=== PATIENT | female | born 1945 | race Caucasian/White ===

== ENCOUNTER 2017-08-01 08:44 | Outpatient (RCR) | payer MEDICARE, BC ==
[2016-06-29 12:32] VITALS: Ht 175.3 cm; Wt 99.4 kg
[2017-05-30] MEDS: LIDOCAINE/SOD BICARB 8.4% SYR ID PRN (09:00)
[2017-05-30 09:08] VITALS: BP 124/74
[2017-05-30 09:28] LABS: PLATELET COUNT, AUTOMATED 192 K/uL (150-450)
--- NOTE | 2017-05-30 10:11 | ONC Progress Note - NP.Halsey ---
Patient History Date of Service May 30, 2017 Reason For Visit/HPI Patient is seen in the clinic today for cycle 11 of Keytruda for her recurrent metastatic colon cancer. Patient continues to deny any symptoms from Keytruda other than mild itching over her scalp. She has been using Benadryl with some relief and denies any sleepiness or fatigue with its use. I have suggested trying Claritin if she has lethargy. She has stable fatigue and constipation without changes. 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 Labs are reviewed with patient today and there are no concerns. Problem List (1) History of colon cancer Oncology History The patient is a 71-year-old female with the following oncology history. 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 Biopsy of the right tube and ovary consistent with spindle stroma. 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 Her colonoscopy on December 2014 was unremarkable. On June 07, 2015, PET-CT scan showed postoperative changes of right hemicolectomy was 2.2 cm hypermetabolic left external iliac lymph node with non-FDG avid 1.8 cm low density lesion in the dome of the liver which was not previously seen with suspected cyst. There was an 8 mm mesenteric lymph node near the aortic bifurcation not significantly changed from prior exam. On June 01, 2015 left iliac lymph node core biopsy was benign lymph node with reactive changes, negative for malignancy. On August 11, 2015, CT scan showed enlarging 2.1 cm low density liver lesion with slight lobulated/irregular margins suggestive of cyst, but necrotic metastasis cannot be excluded. 8 mm right lobe liver lesion stable consistent with cyst. Stable left external iliac lymph node. 3.6 cm right adrenal adenoma. On November 03, 2015 CT showed 2 cm hypodense liver lesion with indistinct margins in the right lobe at the dome, essentially unchanged. On January 28, 2015, PET-CT scan showed previous right hemicolectomy, increase in the size of the lesion near the dome of the right hepatic lobe, now measuring 3.3 x 2.5 cm with borderline increased metabolic activity, consistent with metastasis. There was hypermetabolic left external iliac and mesenteric lymphadenopathy which was slightly more metabolically reactive than prior with stable 3.5 x 3.1 cm right adrenal gland mass with increased metabolic activity. The patient also during this period of time showed rising of her CEA. CT of chest, abdomen and pelvis done on May 06, 2016 identified changes of the previous right colectomy; pelvic lymph nodes are impaired when compared to January. Hypo-enhancing lesion in the dome of the liver is mildly increased. Right adrenal nodule is stable, likely benign. CT-guided biopsy of the liver lesion led to the right hepatectomy done on June 07, 2016. Biopsy of the left lateral section cyst showed mild steatotic liver with denuded cyst, consistent with solitary bile duct cyst. Right hepatectomy came back positive for mucinous adenocarcinoma, 3.3 cm tumor, morphologically consistent with metastatic high-grade colon cancer in the liver. Margins were negative with background steatosis. KRAS and NRAS mutations came back negative, but BRAF mutation came back positive. Microsatellite instability testing came back high, so the patient could get benefit from checkpoint inhibitors. The patient started treatment with Keytruda given that her microsatellite instability was high on September 20, 2016. Medical History Family History: FH: Alzheimers disease MOTHER, , Age:93 FH: CHF (congestive heart failure) FATHER, , Age:79 FH: Parkinson's disease FATHER, , Age:79 FH: bipolar disorder CHILD FH: colon cancer FATHER, , Age:79 grandfather - maternal FH: hypertension FATHER, , Age:79 FH: prostate cancer FATHER, , Age:79 Mental disorder CHILD No significant family history CHILD TIAs FATHER, , Age:79 Psychosocial History Social History Patient is Occupational History She is retired Alcohol History She denies use Smoking History: Yes (SMOKED 40 YRS 1 PPD) Smoking Status: Former Smoker Exposure to Second Hand Smoke?: Yes Medications and Allergies Active Scripts Ondansetron (ZOFRAN ODT) 8 Mg Tab.rapdis, 8 MG PO Q8H, #30 TAB Prov:MOHAMUD DEWITT [employer], ONC 05/09/17 Lorazepam (ATIVAN) 1 Mg Tablet, 1 MG PO HS for NAUSEA, #30 TAB 2 Refills Prov:MOHAMUD DEWITT [employer], ONC 03/24/17 Rivaroxaban 20 Mg (XARELTO 20 MG) 20 Mg Tablet, 20 MG PO DAILY for 30 Days, #30 TAB 6 Refills Prov:MOHAMUD DEWITT [employer], ONC 12/13/16 Reported Medications Fluoxetine Hcl (PROZAC) 40 Mg Capsule, 50 MG PO QDAY, #90 CAPSULE 3 Refills 01/03/17 Furosemide (FUROSEMIDE) 20 Mg Tablet, 1 TAB PO BID, #90 06/29/16 Allergies: Coded Allergies: Penicillins (Verified Allergy, Severe, RASH, 06/29/16) Uncoded Allergies: BANDAIDS (Allergy, Unknown, 06/29/16) Review of System/Physical Exam Review of Systems All Systems Reviewed/Normal: Yes, Except as Noted Gastrointestinal: Constipation Hematologic: Positive for Fatigue Neurologic: Numbness of Hands, Numbness of Feet Skin: Positive for Other (itching of the scalp), Denies Skin Rash Physical Exam Vital Signs Temperature: 99.2 Pulse: 75 BP Systolic: 124 BP Diastolic: 74 Respiratory Rate: 16 O2 SAT: 94 O2 Delivery: Room Air Height (inches) 69.00 Weight lb: 204 Weight oz: 6.0 Weight Kg ([place]): [phone] Pain: 2 ECOG Score: 1 General: Stable, Well Developed, Well Nourished, Not In Acute Distress HEENT: No Trauma, No Conjunctivitis, No Icterus Neck: Supple Lungs: Clear to Auscultation Heart: Regular Rate, Regular Rhythm, No Gallops Abdomen: Soft and Nontender, No Hepatosplenomegaly Extremities: No Cyanosis, No Clubbing, No Edema Lymphadenopathy: No Cervical Psychiatric: Mood appears normal, Affect appears normal Skin: No Skin Rashes, No Bruising, No Purpura Diagnostic Studies Diagnostic Studies Laboratory Laboratory Tests 05/30/17 06:20 Laboratory Tests 05/30/17 06:20: White Blood Count 7.0, Red Blood Count 5.03, Hemoglobin 14.2, Hematocrit 43.2, Mean Corpuscular Volume 85.9, Mean Corpuscular Hemoglobin 28.2, Mean Corpuscular Hemoglobin Concent 32.8, Red Cell Distribution Width 16.5, Platelet Count 192, Mean Platelet Volume 7.1, Neutrophils (%) (Auto) 56.9, Lymphocytes (% ) (Auto) 32.1, Monocytes (%) (Auto) 8.2, Eosinophils (%) (Auto) 2.1, Basophils ( %) (Auto) 0.7, Nucleated RBC Relative Count (auto) 0.1, Neutrophils # (Auto) 4.0 , Lymphocytes # (Auto) 2.3, Monocytes # (Auto) 0.6, Eosinophils # (Auto) 0.1, Basophils # (Auto) 0.0, Nucleated RBC Absolute Count (auto) 0.01, Sodium Level 141, Potassium Level 4.2, Chloride Level 107, Carbon Dioxide Level 23, Blood Urea Nitrogen 13, Creatinine 0.90, Glomerular Filtration Rate Calc > 60.0, Random Glucose 82, Calcium Level 8.9, Magnesium Level 2.0, Total Bilirubin 0.7, Aspartate Amino Transf (AST/SGOT) 16, Alanine Aminotransferase (ALT/SGPT) 25, Alkaline Phosphatase 120, Total Protein 7.2, Albumin 3.7 Assessment and Plan Assessment & Plan 1. Recurrent metastatic colon cancer. Patient initially diagnosed with stage 3 for which she received 11 cycles of chemotherapy with FOLFOX, and on progression she received FOLFIRI for 4 cycles. The first 2 cycles were full dose, but the last 2 cycles were 25% dose reduced because of severe reaction. Patient had hepatectomy for metastatic lesion in the liver done June 07, 2016. Tumor was 3.3 cm mucinous adenocarcinoma. KRAS and NRAS mutations came back negative, but BRAF mutation came back positive. Her tumor was microsatellite instability high. Given this information, with tumor in the proximal colon, mucinous histology, DNA mismatch repair deficiency and microsatellite instability high, patient has started treated with Keytruda on September 20, 2016. She is tolerating treatment without difficulty and will continue until significant disease progression. Her general condition improved. Her PET scan done November 19, 2016 did reveal response to the treatment, as well as her CT chest done November 29, 2016. She will follow in 3 weeks from now with CBC, Chem panel, TSH and free T4 and CEA prior to the next cycle of chemotherapy with Keytruda. 2. Right adrenal mass, stable by PET scan done November 19, 2016. Size was 3.[address] chest done November 29, 2016. CEA is currently at 5.2 which is decreased from previous 6.2. CEA is currently pending today. 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 4. Arthritis. 5. Hepatic metastasis from colon cancer status post resection, currently on Keytruda with improvement by her PET scan November 19, 2016. She will receive cycle 11 today PLAN 1. Keytruda cycle #11. 2. Patient to return in 3 weeks with CBC, Chem panel, free T4, TSH and CEA. 3. Patient to contact us for any new concerns or complaints. I personally spent a total of 20 minutes. Of that 15 minutes was counseling/ coordination of patient's care. See my note above for details. MOHAMUD DEWITT [employer]GER[employer]BC, ONC May 30, 2017 10:11
[2017-05-30] MEDS: HEPARIN FLSH (PORT) 500 UN/5ML IVP PRN (11:00)
[2017-05-30 11:01] VITALS: BP 136/72
[2017-06-20 09:01] VITALS: BP 134/91
[2017-06-20] MEDS: LIDOCAINE/SOD BICARB 8.4% SYR ID PRN (09:21)
[2017-06-20] MEDS: HEPARIN FLSH (PORT) 500 UN/5ML IVP PRN (09:21)
[2017-06-20 09:24] LABS: PLATELET COUNT, AUTOMATED 201 K/uL (150-450)
--- NOTE | 2017-06-24 13:29 | ONCOLOGY FOLLOW UP NOTE ---
EVENT DATE: June 20 DIAGNOSES 1. Metastatic colon cancer. 2. Guillain-[place] syndrome. CHIEF COMPLAINT The patient is here today for treatment with Keytruda for her recurrent metastatic colon cancer. ONCOLOGY HISTORY The patient is a 71-year-old female with the following oncology history. 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 Biopsy of the right tube and ovary consistent with spindle stroma. 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 Her colonoscopy on December 2014 was unremarkable. On June 07, 2015, PET-CT scan showed postoperative changes of right hemicolectomy was 2.2 cm hypermetabolic left external iliac lymph node with non-FDG avid 1.8 cm low density lesion in the dome of the liver which was not previously seen with suspected cyst. There was an 8 mm mesenteric lymph node near the aortic bifurcation not significantly changed from prior exam. On June 01, 2015 left iliac lymph node core biopsy was benign lymph node with reactive changes, negative for malignancy. On August 11, 2015, CT scan showed enlarging 2.1 cm low density liver lesion with slight lobulated/irregular margins suggestive of cyst, but necrotic metastasis cannot be excluded. 8 mm right lobe liver lesion stable consistent with cyst. Stable left external iliac lymph node. 3.6 cm right adrenal adenoma. On November 03, 2015 CT showed 2 cm hypodense liver lesion with indistinct margins in the right lobe at the dome, essentially unchanged. On January 28, 2015, PET-CT scan showed previous right hemicolectomy, increase in the size of the lesion near the dome of the right hepatic lobe, now measuring 3.3 x 2.5 cm with borderline increased metabolic activity, consistent with metastasis. There was hypermetabolic left external iliac and mesenteric lymphadenopathy which was slightly more metabolically reactive than prior with stable 3.5 x 3.1 cm right adrenal gland mass with increased metabolic activity. The patient also during this period of time showed rising of her CEA. CT of chest, abdomen and pelvis done on May 06, 2016 identified changes of the previous right colectomy; pelvic lymph nodes are impaired when compared to January. Hypo-enhancing lesion in the dome of the liver is mildly increased. Right adrenal nodule is stable, likely benign. CT-guided biopsy of the liver lesion led to the right hepatectomy done on June 07, 2016. Biopsy of the left lateral section cyst showed mild steatotic liver with denuded cyst, consistent with solitary bile duct cyst. Right hepatectomy came back positive for mucinous adenocarcinoma, 3.3 cm tumor, morphologically consistent with metastatic high-grade colon cancer in the liver. Margins were negative with background steatosis. KRAS and NRAS mutations came back negative, but BRAF mutation came back positive. Microsatellite instability testing came back high, so the patient could get benefit from checkpoint inhibitors. The patient started treatment with Keytruda given that her microsatellite instability was high on September 20, 2016. HISTORY OF PRESENT ILLNESS The patient is here today for followup of her metastatic colon cancer on treatment with Keytruda. She is doing fine currently, except for alternating diarrhea and constipation, which is chronic for her. She has also neuropathy in her hands and she has numbness in her lower extremities from her previous Guillain-[place] syndrome. She is also complaining of some diminished vision of her left eye, and the patient is followed by an customs officer right now. Other than that, she is tolerating treatment very well without significant complications. PAST MEDICAL HISTORY 1. Recurrent metastatic colon cancer. 2. Arthritis. 3. Guillain-[place] Syndrome. PAST SURGICAL HISTORY 1. Fracture surgery of right leg, two plates and screws. 2. Colonic surgeries. 3. Right hemicolectomy on April 04, 2013. 4. Right hepatectomy June 07, 2016. SOCIAL HISTORY The patient is . His spouse is disabled. She is a former smoker. She quit on November 29, 2010. Denies any smokeless tobacco. No abuse of alcohol or illicit drugs. FAMILY HISTORY Positive for prostate cancer, colon cancer, Alzheimer, Parkinsonism. Prostate cancer in her father and colon cancer in her father too. CURRENT MEDICATIONS 1. Oxycodone 5 mg q.4h. p.r.n. for pain. 2. Lasix 20 mg daily. 3. Zofran 8 mg q.8h. p.r.n. for nausea and vomiting. 4. Lexapro 20 mg daily. 5. Ativan 1 mg at bedtime for nausea. 6. Protonix 40 mg daily. ALLERGIES PENICILLIN. REVIEW OF SYSTEMS CONSTITUTIONAL: She has chills sometimes. HEENT: Ears: No tinnitus or hearing problem. Nose: No nasal discharge or epistaxis. Throat: No sore throat or mouth ulcers. Eyes: She has some diminished vision in the left eye, and the patient is going to see a specialist in the cornea very soon. RESPIRATORY: No shortness of breath. She has cough with expectoration. CARDIOVASCULAR: No chest pain, orthopnea, or paroxysmal nocturnal dyspnea (PND) . No edema. No palpitations. GASTROINTESTINAL: She has alternating diarrhea and constipation, which is chronic for her. GENITOURINARY: No hematuria or dysuria. MUSCULOSKELETAL: She has pain in the ankles due to arthritis. NEUROLOGICAL: She has tingling and numbness in the hands, and she has numbness in the feet from previous Guillain-[place] syndrome. HEMATOLOGIC/LYMPHATIC: She is weak, tired and fatigued. No enlarged lymph nodes. SKIN: No skin rash or lumps. PSYCHIATRIC: No anxiety or depression. PHYSICAL EXAMINATION GENERAL: Looks stable. Well-developed, well-nourished, and in no acute distress. VITAL SIGNS: Blood pressure 134/91, pulse 80 per minute, temperature 99.2, pulse ox 92% on room air. HEENT: Head: Atraumatic. No sinus tenderness to palpation. Eyes: No icterus or conjunctivitis. Mouth and throat: No oral thrush or mucositis. NECK: Supple. No cervical or supraclavicular lymphadenopathy. LUNGS: Clear to auscultation and percussion bilaterally. HEART: Regular rate and rhythm. No gallops, murmurs, clicks or rubs. ABDOMEN: Soft and lax. No tenderness. No hepatosplenomegaly. No masses. EXTREMITIES: No cyanosis, clubbing or edema. LYMPHATICS: No peripheral lymphadenopathy. NEUROLOGICAL: Patient has Guillain-[place] syndrome and she is wheelchair bound. PSYCHIATRIC: Mood and affect appear normal. SKIN: No skin rash, bruise or purpuric eruption. DIAGNOSTIC DATA CBC showed a white count of 7,000, hemoglobin 14.2, hematocrit 43.2, platelet 192,000. Chemistry panel is totally normal. TSH is normal at 1.9. Free T3 of 1.43 and Free T4 of 3, both are normal. CEA is 5.8 which is slightly elevated from 5.2 with her previous lab work. ASSESSMENT 1. Recurrent metastatic colon cancer. Patient initially diagnosed with stage III for which she received 11 cycles of chemotherapy with FOLFOX and on progression she received FOLFIRI for four cycles. The first two cycles were full dose, but the last two cycles were 25% dose reduced because of severe reactions. Patient had partial hepatectomy for her metastatic lesion in the liver done June 07, 2016. Tumor was 3.3 cm mucinous adenocarcinoma. KRAS and NRAS mutations came back negative, but BRAF mutation came back positive. Tumor was micro satellite instability high. Patient started treatment with Keytruda September 20, 2016. She received 10 cycles so far, and her general condition is much better. Her PET scan did not show any progression of her disease, which was done March 24, 2017. I am planning to continue treatment with Keytruda as planned. I will proceed with her eleventh cycle today. I will see her in three weeks with CBC, chem panel, CEA, TSH and free T4 and free T3. 2. Right adrenal mass, stable by PET scan done in October and February 2017. 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 4. Hepatic metastasis from colon cancer status post resection, currently on Keytruda with stable disease without any evidence of progression. PLAN 1. Proceed with Keytruda therapy today. 2. Patient to return in three weeks with CBC, chem panel, CEA and free T4, T3 and TSH. 3. Patient is to contact us for any new concerns or complaints. MTDD
[2017-07-11 08:57] VITALS: BP 120/73
[2017-07-11 09:47] LABS: PLATELET COUNT, AUTOMATED 203 K/uL (150-450)
--- NOTE | 2017-07-11 10:23 | ONC Progress Note - NP.Halsey ---
Patient History Date of Service Jul 11, 2017 Reason For Visit/HPI Patient is seen in the clinic today for cycle 15 of Keytruda for her recurrent metastatic colon cancer. Patient continues to deny any symptoms from Keytruda other than mild itching over her scalp that comes and goes. She denies any diarrhea, shortness of breath or generalized fatigue today. Problem List (1) Cancer of right colon Oncology History The patient is a 71-year-old female with the following oncology history. 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 Biopsy of the right tube and ovary consistent with spindle stroma. 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 Her colonoscopy on December 2014 was unremarkable. On June 07, 2015, PET-CT scan showed postoperative changes of right hemicolectomy was 2.2 cm hypermetabolic left external iliac lymph node with non-FDG avid 1.8 cm low density lesion in the dome of the liver which was not previously seen with suspected cyst. There was an 8 mm mesenteric lymph node near the aortic bifurcation not significantly changed from prior exam. On June 01, 2015 left iliac lymph node core biopsy was benign lymph node with reactive changes, negative for malignancy. On August 11, 2015, CT scan showed enlarging 2.1 cm low density liver lesion with slight lobulated/irregular margins suggestive of cyst, but necrotic metastasis cannot be excluded. 8 mm right lobe liver lesion stable consistent with cyst. Stable left external iliac lymph node. 3.6 cm right adrenal adenoma. On November 03, 2015 CT showed 2 cm hypodense liver lesion with indistinct margins in the right lobe at the dome, essentially unchanged. On January 28, 2015, PET-CT scan showed previous right hemicolectomy, increase in the size of the lesion near the dome of the right hepatic lobe, now measuring 3.3 x 2.5 cm with borderline increased metabolic activity, consistent with metastasis. There was hypermetabolic left external iliac and mesenteric lymphadenopathy which was slightly more metabolically reactive than prior with stable 3.5 x 3.1 cm right adrenal gland mass with increased metabolic activity. The patient also during this period of time showed rising of her CEA. CT of chest, abdomen and pelvis done on May 06, 2016 identified changes of the previous right colectomy; pelvic lymph nodes are impaired when compared to January. Hypo-enhancing lesion in the dome of the liver is mildly increased. Right adrenal nodule is stable, likely benign. CT-guided biopsy of the liver lesion led to the right hepatectomy done on June 07, 2016. Biopsy of the left lateral section cyst showed mild steatotic liver with denuded cyst, consistent with solitary bile duct cyst. Right hepatectomy came back positive for mucinous adenocarcinoma, 3.3 cm tumor, morphologically consistent with metastatic high-grade colon cancer in the liver. Margins were negative with background steatosis. KRAS and NRAS mutations came back negative, but BRAF mutation came back positive. Microsatellite instability testing came back high, so the patient could get benefit from checkpoint inhibitors. The patient started treatment with Keytruda given that her microsatellite instability was high on September 20, 2016. Medical History Family History: FH: Alzheimers disease MOTHER, , Age:93 FH: CHF (congestive heart failure) FATHER, , Age:79 FH: Parkinson's disease FATHER, , Age:79 FH: bipolar disorder CHILD FH: colon cancer FATHER, , Age:79 grandfather - maternal FH: hypertension FATHER, , Age:79 FH: prostate cancer FATHER, , Age:79 Mental disorder CHILD No significant family history CHILD TIAs FATHER, , Age:79 Psychosocial History Social History Patient is Occupational History She is retired Alcohol History She denies use Smoking History: Yes (SMOKED 40 YRS 1 PPD) Smoking Status: Former Smoker Exposure to Second Hand Smoke?: Yes Medications and Allergies Active Scripts Ondansetron (ZOFRAN ODT) 8 Mg Tab.rapdis, 8 MG PO Q8H, #30 TAB Prov:MOHAMUD DEWITT BASTING MACHINE OPERATOR-BC, ONC 05/09/17 Lorazepam (ATIVAN) 1 Mg Tablet, 1 MG PO HS for NAUSEA, #30 TAB 2 Refills Prov:MOHAMUD DEWITT BASTING MACHINE OPERATOR-BC, ONC 03/24/17 Rivaroxaban 20 Mg (XARELTO 20 MG) 20 Mg Tablet, 20 MG PO DAILY for 30 Days, #30 TAB 6 Refills Prov:MOHAMUD DEWITT BASTING MACHINE OPERATOR-BC, ONC 12/13/16 Reported Medications Fluoxetine Hcl (PROZAC) 40 Mg Capsule, 50 MG PO QDAY, #90 CAPSULE 3 Refills 01/03/17 Furosemide (FUROSEMIDE) 20 Mg Tablet, 1 TAB PO BID, #90 06/29/16 Allergies: Coded Allergies: Penicillins (Verified Allergy, Severe, RASH, 06/29/16) Uncoded Allergies: BANDAIDS (Allergy, Unknown, 06/29/16) Review of System/Physical Exam Review of Systems All Systems Reviewed/Normal: Yes, Except as Noted Hematologic: Positive for Fatigue Neurologic: Numbness of Feet, Other (patient has lower extremity neuropathy and uses a walker for ambulation) Psychiatric: Depression (patient reports that her depression is improved today. ) Skin: Positive for Other (itching of the scalp), Denies Skin Rash Physical Exam Vital Signs Temperature: 97.1 Pulse: 71 BP Systolic: 120 BP Diastolic: 73 Respiratory Rate: 16 O2 SAT: 91 O2 Delivery: Room Air Height (inches) 69.00 Weight lb: 204 Weight oz: 6.0 Weight Kg (Domingo): [phone] Pain: 0 ECOG Score: 1 General: Stable, Well Developed, Well Nourished, Not In Acute Distress HEENT: No Trauma, No Conjunctivitis, No Icterus, No Mucositis, No Oral Thrush Neck: Supple Lungs: Clear to Auscultation Heart: Regular Rate, Regular Rhythm Abdomen: Soft and Nontender, No Hepatosplenomegaly, No Masses, Other Extremities: No Cyanosis (bowel sounds are active), No Clubbing, No Edema Lymphadenopathy: No Cervical Psychiatric: Mood appears normal, Affect appears normal Skin: No Skin Rashes, No Bruising, No Purpura Diagnostic Studies Diagnostic Studies Laboratory Laboratory Tests 07/11/17 09:35 Laboratory Tests 06/20/17 09:15: Thyroxine (T4) 9.9 07/11/17 09:35: White Blood Count 7.0, Red Blood Count 4.91, Hemoglobin 13.9, Hematocrit 41.8, Mean Corpuscular Volume 85.2, Mean Corpuscular Hemoglobin 28.2, Mean Corpuscular Hemoglobin Concent 33.1, Red Cell Distribution Width 16.4, Platelet Count 203, Mean Platelet Volume 7.5, Neutrophils (%) (Auto) 54.2, Lymphocytes (% ) (Auto) 34.1, Monocytes (%) (Auto) 8.4, Eosinophils (%) (Auto) 2.2, Basophils ( %) (Auto) 1.1, Nucleated RBC Relative Count (auto) 0.0, Neutrophils # (Auto) 3.8 , Lymphocytes # (Auto) 2.4, Monocytes # (Auto) 0.6, Eosinophils # (Auto) 0.2, Basophils # (Auto) 0.1, Nucleated RBC Absolute Count (auto) 0.00, Sodium Level 140, Potassium Level 3.8, Chloride Level 107, Carbon Dioxide Level 23, Blood Urea Nitrogen 11, Creatinine 0.80, Glomerular Filtration Rate Calc > 60.0, Random Glucose 84, Calcium Level 8.4, Magnesium Level 1.8, Total Bilirubin 0.6, Aspartate Amino Transf (AST/SGOT) 15, Alanine Aminotransferase (ALT/SGPT) 26, Alkaline Phosphatase 106, Total Protein 6.8, Albumin 3.6, Free Thyroxine 1.33 Assessment and Plan Assessment & Plan 1. Recurrent metastatic colon cancer. Patient initially diagnosed with stage 3 for which she received 11 cycles of chemotherapy with FOLFOX, and on progression she received FOLFIRI for 4 cycles. The first 2 cycles were full dose, but the last 2 cycles were 25% dose reduced because of severe reaction. Patient had hepatectomy for metastatic lesion in the liver done June 07, 2016. Tumor was 3.3 cm mucinous adenocarcinoma. KRAS and NRAS mutations came back negative, but BRAF mutation came back positive. Her tumor was microsatellite instability high. Given this information, with tumor in the proximal colon, mucinous histology, DNA mismatch repair deficiency and microsatellite instability high, patient has started treated with Keytruda on September 20, 2016. She is tolerating treatment without difficulty and will continue until significant disease progression. Her general condition improved. Her PET scan done November 19, 2016 did reveal response to the treatment, as well as her CT chest done November 29, 2016. She will receive cycle 15 today. She will follow in 3 weeks from now with CBC, Chem panel, TSH and free T4 and CEA prior to the next cycle of chemotherapy with Keytruda. CEA remains stable but is elevated at 5.7 2. Right adrenal mass, stable by PET scan done November 19, 2016. Size was 3.[address] chest done November 29, 2016. CEA is currently at 5.7 which is decreased from previous 6.2. 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 4. Arthritis. 5. Hepatic metastasis from colon cancer status post resection, currently on Keytruda with improvement by her PET scan November 19, 2016. PLAN 1. Keytruda cycle #15. 2. Patient to return in 3 weeks with CBC, Chem panel, free T4, TSH and CEA. 3. Patient to contact us for any new concerns or complaints. I personally spent a total of 20 minutes. Of that 15 minutes was counseling/ coordination of patient's care. See my note above for details. Copies to: MICHAEL BLANCHARD MD, NANCY J BASTING MACHINE OPERATOR-BC, ONC Jul 11, 2017 10:23
[2017-07-11 11:02] VITALS: BP 116/59
[2017-07-11] MEDS: HEPARIN FLSH (PORT) 500 UN/5ML IVP PRN (11:06)
[2017-07-11] MEDS: LIDOCAINE/SOD BICARB 8.4% SYR ID PRN (12:04)
[~2017-08-01] VITALS: Ht 175.3 cm; Wt 99.4 kg
[~2017-08-01 08:44] MED LIST: ACET-1748 PO; ALP1 PO; ALTEPLASE RECOMB 2 MG VIAL IVP PRN; CALC-661 PO; DEXTROSE 5%(*) 100 ML BAG 100 ML IVPB PRN; DIA5 PO; DIPH-543 PO; ESC10 PO; ESCI20TA38 PO; FLUO40CA76 PO; FURO-45 PO; FURO-47 PO; FURO20TA19 PO; IBUP200C71 PO; IBUP800T37 PO; LEVO-85 PO; LOR5/325 PO; LORA-1456 PO; MOX400 PO; NS(*) 0.9% 100 ML BAG 100 ML IVPB PRN; NS(*) 0.9% 500 ML BAG 500 ML IV PRN; ONDA8TAB91 PO; ONDA8TAB94 PO; OXYC-373 PO; OXYC-865 PO; OXYC5TAB38 PO; PANT40TA65 PO; PEMBROLIZUMAB 100 MG/4 ML SDV 200 MG in NS(*) 0.9% 50 ML BAG 50 ML IV ONE; PEMBROLIZUMAB 100 MG/4 ML SDV 200 MG in NS(*) 0.9% 50 ML BAG 50 ML IV PRN; PHEN60TA9 PO; POTA-53 PO; POTA20PA10 PO; PREG50CA48 PO; PROM-110 PO; PYRI100T57 PO; RIVA15TA PO; RIVA20TA PO; SPIR50TA31; WATER STERILE 10 ML VIAL IVP PRN
[2017-08-01 08:50] VITALS: BP 110/68
[2017-08-01] MEDS: LIDOCAINE/SOD BICARB 8.4% SYR ID PRN (09:29)
[2017-08-01] MEDS ORDERED: PEMBROLIZUMAB 100 MG/4 ML SDV 200 MG in NS(*) 0.9% 50 ML BAG 50 ML IV ONE (10:00)
--- NOTE | 2017-08-01 10:10 | ONC Progress Note - NP.Halsey ---
Patient History Date of Service Aug 01, 2017 Reason For Visit/HPI Patient is seen in the clinic today for cycle 16 of Keytruda for her recurrent metastatic colon cancer. Patient continues to deny any symptoms from Keytruda other than mild itching over her scalp that comes and goes. She is currently using Claritin and feels like it provide some relief. She has occasional episodes of diarrhea. She denies any shortness of breath respiratory issues or generalized fatigue today. Her recently fractured his hip and is currently at home. She is able to help provide care for him as needed. Oncology History The patient is a 71-year-old female with the following oncology history. 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 Biopsy of the right tube and ovary consistent with spindle stroma. 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 Her colonoscopy on December 2014 was unremarkable. On June 07, 2015, PET-CT scan showed postoperative changes of right hemicolectomy was 2.2 cm hypermetabolic left external iliac lymph node with non-FDG avid 1.8 cm low density lesion in the dome of the liver which was not previously seen with suspected cyst. There was an 8 mm mesenteric lymph node near the aortic bifurcation not significantly changed from prior exam. On June 01, 2015 left iliac lymph node core biopsy was benign lymph node with reactive changes, negative for malignancy. On August 11, 2015, CT scan showed enlarging 2.1 cm low density liver lesion with slight lobulated/irregular margins suggestive of cyst, but necrotic metastasis cannot be excluded. 8 mm right lobe liver lesion stable consistent with cyst. Stable left external iliac lymph node. 3.6 cm right adrenal adenoma. On November 03, 2015 CT showed 2 cm hypodense liver lesion with indistinct margins in the right lobe at the dome, essentially unchanged. On January 28, 2015, PET-CT scan showed previous right hemicolectomy, increase in the size of the lesion near the dome of the right hepatic lobe, now measuring 3.3 x 2.5 cm with borderline increased metabolic activity, consistent with metastasis. There was hypermetabolic left external iliac and mesenteric lymphadenopathy which was slightly more metabolically reactive than prior with stable 3.5 x 3.1 cm right adrenal gland mass with increased metabolic activity. The patient also during this period of time showed rising of her CEA. CT of chest, abdomen and pelvis done on May 06, 2016 identified changes of the previous right colectomy; pelvic lymph nodes are impaired when compared to January. Hypo-enhancing lesion in the dome of the liver is mildly increased. Right adrenal nodule is stable, likely benign. CT-guided biopsy of the liver lesion led to the right hepatectomy done on June 07, 2016. Biopsy of the left lateral section cyst showed mild steatotic liver with denuded cyst, consistent with solitary bile duct cyst. Right hepatectomy came back positive for mucinous adenocarcinoma, 3.3 cm tumor, morphologically consistent with metastatic high-grade colon cancer in the liver. Margins were negative with background steatosis. KRAS and NRAS mutations came back negative, but BRAF mutation came back positive. Microsatellite instability testing came back high, so the patient could get benefit from checkpoint inhibitors. The patient started treatment with Keytruda given that her microsatellite instability was high on September 20, 2016. Medical History Family History: FH: Alzheimers disease MOTHER, , Age:93 FH: CHF (congestive heart failure) FATHER, , Age:79 FH: Parkinson's disease FATHER, , Age:79 FH: bipolar disorder CHILD FH: colon cancer FATHER, , Age:79 grandfather - maternal FH: hypertension FATHER, , Age:79 FH: prostate cancer FATHER, , Age:79 Mental disorder CHILD No significant family history CHILD TIAs FATHER, , Age:79 Psychosocial History Social History Patient is Occupational History She is retired Alcohol History She denies use Smoking History: Yes (SMOKED 40 YRS 1 PPD) Smoking Status: Former Smoker Exposure to Second Hand Smoke?: Yes Medications and Allergies Active Scripts Lorazepam (ATIVAN) 1 Mg Tablet, 1 MG PO HS for NAUSEA for 90 Days, #90 TAB 1 Refill Prov:MOHAMUD DEWITT 4[employer] GRADE TEACHER-BC, ONC 07/11/17 Ondansetron (ZOFRAN ODT) 8 Mg Tab.rapdis, 8 MG PO Q8H, #30 TAB Prov:MOHAMUD DEWITTP-BC, ONC 05/09/17 Rivaroxaban 20 Mg (XARELTO 20 MG) 20 Mg Tablet, 20 MG PO DAILY for 30 Days, #30 TAB 6 Refills Prov:MOHAMUD DEWITT 4[employer] GRADE TEACHER-BC, ONC 6/16/17 Reported Medications Fluoxetine Hcl (PROZAC) 40 Mg Capsule, 50 MG PO QDAY, #90 CAPSULE 3 Refills 01/03/17 Furosemide (FUROSEMIDE) 20 Mg Tablet, 1 TAB PO BID, #90 06/29/16 Allergies: Coded Allergies: Penicillins (Verified Allergy, Severe, RASH, 06/29/16) Uncoded Allergies: BANDAIDS (Allergy, Unknown, 06/29/16) Review of System/Physical Exam Review of Systems All Systems Reviewed/Normal: Yes, Except as Noted Gastrointestinal: Diarrhea (occasional episodes but not frequent) Hematologic: Positive for Fatigue Musculoskeletal: Positive for Joint Pain Skin: Positive for Other (itching of the scalp), Denies Skin Rash Physical Exam Vital Signs Temperature: 97.8 Pulse: 71 BP Systolic: 110 BP Diastolic: 68 Respiratory Rate: 16 O2 SAT: 91 O2 Delivery: Room Air Height (inches) 69.00 Weight lb: 204 Weight oz: 6.0 Weight Kg (Domingo): [phone] Pain: 0 ECOG Score: 1 General: Stable, Well Developed, Well Nourished, Not In Acute Distress HEENT: No Trauma, No Conjunctivitis, No Icterus, No Mucositis, No Oral Thrush Neck: Supple Lungs: Clear to Auscultation Heart: Regular Rate, Regular Rhythm, No Gallops Abdomen: Soft and Nontender, No Hepatosplenomegaly, No Masses, Other (bowel sounds are active) Extremities: No Cyanosis, No Clubbing, No Edema Lymphadenopathy: No Cervical Psychiatric: Mood appears normal, Affect appears normal Skin: No Skin Rashes, No Bruising, No Purpura Diagnostic Studies Diagnostic Studies Laboratory Item Value Date Time Thyroid Stimulating Hormone (TSH) 1.33 uIU/ml 08/01/17925 Free Thyroxine 1.14 ng/dl 08/01/17925 Thyroid Stimulating Hormone (TSH) 1.90 uIU/ml 07/11/1735 Free Thyroxine 1.33 ng/dl 07/11/1735 Free Triiodothyronine 2.4 pg/mL 07/11/1735 Carcinoembryonic Antigen 5.0 ng/mL H 07/11/17 0935 Laboratory Tests 08/01/17 09:15 Laboratory Tests 06/20/17 09:15: Thyroxine (T4) 9.9 07/11/17 09:35: Red Blood Count 4.91, Mean Corpuscular Volume 85.2, Mean Corpuscular Hemoglobin 28.2, Mean Corpuscular Hemoglobin Concent 33.1, Red Cell Distribution Width 16.4 , Mean Platelet Volume 7.5, Monocytes (%) (Auto) 8.4, Eosinophils (%) (Auto) 2.2 , Basophils (%) (Auto) 1.1, Nucleated RBC Relative Count (auto) 0.0, Monocytes # (Auto) 0.6, Eosinophils # (Auto) 0.2, Basophils # (Auto) 0.1, Nucleated RBC Absolute Count (auto) 0.00, Magnesium Level 1.8 08/01/17 09:15: White Blood Count 7.1, Hemoglobin 15.2, Hematocrit 46.2, Platelet Count 193, Neutrophils (%) (Auto) 59.0, Lymphocytes (%) (Auto) 30.7, Neutrophils # (Auto) 4.2, Lymphocytes # (Auto) 2.2, Sodium Level 141, Potassium Level 4.4, Chloride Level 106, Carbon Dioxide Level 23, Blood Urea Nitrogen 16, Creatinine 1.00, Glomerular Filtration Rate Calc 54.5, Random Glucose 95, Calcium Level 8.8, Total Bilirubin 0.6, Aspartate Amino Transf (AST/SGOT) 16, Alanine Aminotransferase (ALT/SGPT) 21, Alkaline Phosphatase 127, Total Protein 7.3, Albumin 3.9 08/01/17 09:26: Assessment and Plan Assessment & Plan 1. Recurrent metastatic colon cancer. Patient initially diagnosed with stage 3 for which she received 11 cycles of chemotherapy with FOLFOX, and on progression she received FOLFIRI for 4 cycles. The first 2 cycles were full dose, but the last 2 cycles were 25% dose reduced because of severe reaction. Patient had hepatectomy for metastatic lesion in the liver done June 07, 2016. Tumor was 3.3 cm mucinous adenocarcinoma. KRAS and NRAS mutations came back negative, but BRAF mutation came back positive. Her tumor was microsatellite instability high. Given this information, with tumor in the proximal colon, mucinous histology, DNA mismatch repair deficiency and microsatellite instability high, patient has started treated with Keytruda on September 20, 2016. She is tolerating treatment without difficulty and will continue until significant disease progression. Her general condition improved. Her PET scan done November 19, 2016 did reveal response to the treatment, as well as her CT chest done November 29, 2016. She will follow in 3 weeks from now with CBC , Chem panel, TSH and free T4 and CEA prior to the next cycle of chemotherapy with Keytruda. CEA remains stable previously elevated at 5.7, and more recently 5.0. 2. Right adrenal mass, stable by PET scan done November 19, 2016. Size was 3.[address] chest done November 29, 2016. CEA is currently at 5.0 which is decreased from previous 6.2. 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 4. Arthritis. 5. Hepatic metastasis from colon cancer status post resection, currently on Keytruda with improvement by her PET scan November 19, 2016. PLAN 1. Keytruda cycle #16. 2. Patient to return in 3 weeks with CBC, Chem panel, free T4, TSH and CEA. 3. Patient to contact us for any new concerns or complaints. I personally spent a total of 20 minutes. Of that 15 minutes was counseling/ coordination of patient's care. See my note above for details. MOHAMUD DEWITT 4[employer] GRADE TEACHER-BC, ONC Aug 01, 2017 10:10
[2017-08-01] MEDS: HEPARIN FLSH (PORT) 500 UN/5ML IVP PRN (10:54)
== END 2017-08-27 ==
LOC: ONC 08:44
PROVIDERS: ATTEND Internal Medicine Hematology
DX: C18.9 Malignant neoplasm of colon, unspecified (principal); C78.7 Secondary malignant neoplasm of liver and intrahepatic bile duct; C77.9 Secondary and unspecified malignant neoplasm of lymph node, unspecified; E27.9 Disorder of adrenal gland, unspecified; G61.0 Guillain-Barre syndrome; G62.9 Polyneuropathy, unspecified; Z87.891 Personal history of nicotine dependence; Z79.899 Other long term (current) drug therapy; M19.90 Unspecified osteoarthritis, unspecified site; R53.83 Other fatigue; Z92.21 Personal history of antineoplastic chemotherapy; K59.00 Constipation, unspecified
CPT/HCPCS: 82378; 83735; 84436; 84439; 84443; 84481; 85025; 85027; 96365; J1642; J7040; J7050; J9271; 82040; 82247; 82310; 82374; 82435; 82565; 82947; 84075; 84132; 84155; 84295; 84450; 84460; 84520

== ENCOUNTER 2017-11-21 08:38 | Outpatient (RCR) | payer MEDICARE, BC ==
[2016-06-29 12:32] VITALS: Ht 175.3 cm; Wt 101.0 kg
[2017-08-29 08:50] VITALS: BP 114/75
[2017-08-29] MEDS: LIDOCAINE/SOD BICARB 8.4% SYR ID PRN (10:12)
[2017-08-29] MEDS: PEMBROLIZUMAB 100 MG/4 ML SDV 200 MG in NS(*) 0.9% 50 ML BAG 50 ML IV PRN (10:14)
[2017-08-29 11:02] VITALS: BP 118/75
[2017-08-29] MEDS: HEPARIN FLSH (PORT) 500 UN/5ML IVP PRN (11:02)
--- NOTE | 2017-08-31 08:09 | [facility] ONCOLOGY NOTE ---
EVENT DATE: August 29, 2017 DIAGNOSES 1. Metastatic colon cancer. 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 CHIEF COMPLAINT The patient is here today for her treatment with Keytruda for her recurrent metastatic colon cancer. ONCOLOGY HISTORY The patient is a 71-year-old female with the following oncology history. 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 Biopsy of the right tube and ovary consistent with spindle stroma. 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 Her colonoscopy on December 2014 was unremarkable. On June 07, 2015, PET-CT scan showed postoperative changes of right hemicolectomy was 2.2 cm hypermetabolic left external iliac lymph node with non-FDG avid 1.8 cm low density lesion in the dome of the liver which was not previously seen with suspected cyst. There was an 8 mm mesenteric lymph node near the aortic bifurcation not significantly changed from prior exam. On June 01, 2015 left iliac lymph node core biopsy was benign lymph node with reactive changes, negative for malignancy. On August 11, 2015, CT scan showed enlarging 2.1 cm low density liver lesion with slight lobulated/irregular margins suggestive of cyst, but necrotic metastasis cannot be excluded. 8 mm right lobe liver lesion stable consistent with cyst. Stable left external iliac lymph node. 3.6 cm right adrenal adenoma. On November 03, 2015 CT showed 2 cm hypodense liver lesion with indistinct margins in the right lobe at the dome, essentially unchanged. On January 28, 2015, PET-CT scan showed previous right hemicolectomy, increase in the size of the lesion near the dome of the right hepatic lobe, now measuring 3.3 x 2.5 cm with borderline increased metabolic activity, consistent with metastasis. There was hypermetabolic left external iliac and mesenteric lymphadenopathy which was slightly more metabolically reactive than prior with stable 3.5 x 3.1 cm right adrenal gland mass with increased metabolic activity. The patient also during this period of time showed rising of her CEA. CT of chest, abdomen and pelvis done on May 06, 2016 identified changes of the previous right colectomy; pelvic lymph nodes are impaired when compared to January. Hypo-enhancing lesion in the dome of the liver is mildly increased. Right adrenal nodule is stable, likely benign. CT-guided biopsy of the liver lesion led to the right hepatectomy done on June 07, 2016. Biopsy of the left lateral section cyst showed mild steatotic liver with denuded cyst, consistent with solitary bile duct cyst. Right hepatectomy came back positive for mucinous adenocarcinoma, 3.3 cm tumor, morphologically consistent with metastatic high-grade colon cancer in the liver. Margins were negative with background steatosis. KRAS and NRAS mutations came back negative, but BRAF mutation came back positive. Microsatellite instability testing came back high, so the patient could get benefit from checkpoint inhibitors. The patient started treatment with Keytruda given that her microsatellite instability was high on September 20, 2016. HISTORY OF PRESENT ILLNESS The patient is here today for followup of her metastatic colon cancer on treatment with Keytruda. Patient is doing very well generally with her treatment. She has some upper respiratory tract infection lately with residual cough and expectoration. 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 Other than that , patient is really doing very well currently. PAST MEDICAL HISTORY 1. Recurrent metastatic colon cancer. 2. Arthritis. 3. Guillain-[place] Syndrome. PAST SURGICAL HISTORY 1. Fracture surgery of right leg, two plates and screws. 2. Colonic surgeries. 3. Right hemicolectomy on April 04, 2013. 4. Right hepatectomy June 07, 2016. SOCIAL HISTORY The patient is . His spouse is disabled. She is a former smoker. She quit on November 29, 2010. Denies any smokeless tobacco. No abuse of alcohol or illicit drugs. FAMILY HISTORY Positive for prostate cancer, colon cancer, Alzheimer, Parkinsonism. Prostate cancer in her father and colon cancer in her father too. CURRENT MEDICATIONS 1. Oxycodone 5 mg q.4h. p.r.n. for pain. 2. Lasix 20 mg daily. 3. Zofran 8 mg q.8h. p.r.n. for nausea and vomiting. 4. Lexapro 20 mg daily. 5. Ativan 1 mg at bedtime for nausea. 6. Protonix 40 mg daily. ALLERGIES PENICILLIN. REVIEW OF SYSTEMS CONSTITUTIONAL: No appetite or weight change. No fever, chills or sweating. No recent infection. HEENT: Ears: No tinnitus or hearing problem. Nose: No nasal discharge or epistaxis. Throat: No sore throat or mouth ulcers. Eyes: No diplopia or visual changes. RESPIRATORY: Patient has cough with expectoration. CARDIOVASCULAR: No chest pain, orthopnea, or paroxysmal nocturnal dyspnea (PND) . No edema. No palpitations. GASTROINTESTINAL: No nausea or vomiting. No diarrhea or constipation. No change in bowel movements. No heartburn or swallowing difficulties. No abdominal pain. No jaundice. No hematemesis, melena or rectal bleeding. GENITOURINARY: No hematuria or dysuria. MUSCULOSKELETAL: No pain in the muscles, joints or bones. NEUROLOGICAL: She has tingling and numbness in the hands and feet. HEMATOLOGIC/LYMPHATIC: No bleeding or easy bruising. No weakness or fatigued. No enlarged lymph nodes. SKIN: No skin rash or lumps. PSYCHIATRIC: No anxiety or depression. PHYSICAL EXAMINATION GENERAL: Looks stable. Well-developed, well-nourished, and in no acute distress. VITAL SIGNS: Blood pressure 114/75, pulse 73 per minute, respirations 18 per minute, temperature 98.8, pulse oximetry 92% on room air. HEENT: Head: Atraumatic. No sinus tenderness to palpation. Eyes: No icterus or conjunctivitis. Mouth and throat: No oral thrush or mucositis. NECK: Supple. No cervical or supraclavicular lymphadenopathy. LUNGS: Clear to auscultation and percussion bilaterally. HEART: Regular rate and rhythm. No gallops, murmurs, clicks or rubs. ABDOMEN: Soft and lax. No tenderness. No hepatosplenomegaly. No masses. EXTREMITIES: No cyanosis, clubbing or edema. LYMPHATICS: No peripheral lymphadenopathy. NEUROLOGICAL: Conscious, alert and oriented times three. No focal motor or sensory deficits. PSYCHIATRIC: Mood and affect appear normal. SKIN: No skin rash, bruise or purpuric eruption. DIAGNOSTIC DATA CBC showed white count of 7100, hemoglobin 15.2, hematocrit 46.2, platelet 193, 000. T4 is 9.9, free T3 2.5, free T4 1.14 and TSH 1.33. Chem panel showed alkaline phosphatase of 127. ASSESSMENT 1. Recurrent metastatic colon cancer. Patient initially diagnosed with stage III, and she received 11 cycles of chemotherapy with FOLFOX, and on progression she received FOLFIRI for four cycles. The first two cycles were full dose, but the last two cycles were 25% dose reduction because of severe reaction to FOLFIRI. Patient had partial hepatectomy for her metastatic lesion in the liver done June 07, 2016. Tumor was 3.3 cm mucinous adenocarcinoma. KRAS and NRAS mutations came back negative, but BRAF mutation came back positive. Tumor was micro satellite instability high. Patient started treatment with Keytruda September 20, 2016. She is tolerating treatment very well, and her general condition improved a lot with her treatment. Her PET scan done March 24, 2017 did not show any evidence of progression. I am planning to continue same treatment with Keytruda. I will see her in three weeks with CBC, chem panel, CEA, TSH, free T4 and free T3. 2. Right adrenal mass, stable by PET scan done October and February 2017. 3. Guillain-[place] syndrome, wheelchair bound. 4. Hepatic metastasis from colon cancer status post resection, currently on Keytruda with stable disease. PLAN 1. Proceed with Keytruda therapy today. 2. Patient to return in three weeks with CBC, chem panel, CEA, TSH, free T3 and free T4. 3. Patient to contact us for any new concerns or complaints. MTDD
[2017-09-19 08:44] VITALS: BP 137/79
[2017-09-19] MEDS: NS(*) 0.9% 500 ML BAG 500 ML IV PRN (08:47)
[2017-09-19] MEDS: LIDOCAINE/SOD BICARB 8.4% SYR ID PRN (08:48)
[2017-09-19] MEDS: HEPARIN FLSH (PORT) 500 UN/5ML IVP PRN (08:48)
[2017-09-19] MEDS: PEMBROLIZUMAB 100 MG/4 ML SDV 200 MG in NS(*) 0.9% 50 ML BAG 50 ML IV PRN (09:47)
[2017-09-19 10:37] VITALS: BP 125/82
--- NOTE | 2017-09-20 17:50 | ONCOLOGY FOLLOW UP NOTE ---
EVENT DATE: September 19, 2017 DIAGNOSES 1. Metastatic colon cancer. 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 CHIEF COMPLAINT The patient is here today for followup of her metastatic colon cancer on treatment with Keytruda. ONCOLOGY HISTORY The patient is a 71-year-old female with the following oncology history. 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 Biopsy of the right tube and ovary consistent with spindle stroma. 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 Her colonoscopy on December 2014 was unremarkable. On June 07, 2015, PET-CT scan showed postoperative changes of right hemicolectomy was 2.2 cm hypermetabolic left external iliac lymph node with non-FDG avid 1.8 cm low density lesion in the dome of the liver which was not previously seen with suspected cyst. There was an 8 mm mesenteric lymph node near the aortic bifurcation not significantly changed from prior exam. On June 01, 2015 left iliac lymph node core biopsy was benign lymph node with reactive changes, negative for malignancy. On August 11, 2015, CT scan showed enlarging 2.1 cm low density liver lesion with slight lobulated/irregular margins suggestive of cyst, but necrotic metastasis cannot be excluded. 8 mm right lobe liver lesion stable consistent with cyst. Stable left external iliac lymph node. 3.6 cm right adrenal adenoma. On November 03, 2015 CT showed 2 cm hypodense liver lesion with indistinct margins in the right lobe at the dome, essentially unchanged. On January 28, 2015, PET-CT scan showed previous right hemicolectomy, increase in the size of the lesion near the dome of the right hepatic lobe, now measuring 3.3 x 2.5 cm with borderline increased metabolic activity, consistent with metastasis. There was hypermetabolic left external iliac and mesenteric lymphadenopathy which was slightly more metabolically reactive than prior with stable 3.5 x 3.1 cm right adrenal gland mass with increased metabolic activity. The patient also during this period of time showed rising of her CEA. CT of chest, abdomen and pelvis done on May 06, 2016 identified changes of the previous right colectomy; pelvic lymph nodes are impaired when compared to January. Hypo-enhancing lesion in the dome of the liver is mildly increased. Right adrenal nodule is stable, likely benign. CT-guided biopsy of the liver lesion led to the right hepatectomy done on June 07, 2016. Biopsy of the left lateral section cyst showed mild steatotic liver with denuded cyst, consistent with solitary bile duct cyst. Right hepatectomy came back positive for mucinous adenocarcinoma, 3.3 cm tumor, morphologically consistent with metastatic high-grade colon cancer in the liver. Margins were negative with background steatosis. KRAS and NRAS mutations came back negative, but BRAF mutation came back positive. Microsatellite instability testing came back high, so the patient could get benefit from checkpoint inhibitors. The patient started treatment with Keytruda given that her microsatellite instability was high on September 20, 2016. HISTORY OF PRESENT ILLNESS The patient is here today for followup of her metastatic colon cancer on treatment with Keytruda. Patient is doing fine currently. Her general condition is much better than before. She is complaining of alternating diarrhea and constipation. She continues to have tingling and numbness from neuropathy in her hands and feet. PAST MEDICAL HISTORY 1. Recurrent metastatic colon cancer. 2. Arthritis. 3. Guillain-[place] Syndrome. PAST SURGICAL HISTORY 1. Fracture surgery of right leg, two plates and screws. 2. Colonic surgeries. 3. Right hemicolectomy on April 04, 2013. 4. Right hepatectomy June 07, 2016. SOCIAL HISTORY The patient is . His spouse is disabled. She is a former smoker. She quit on November 29, 2010. Denies any smokeless tobacco. No abuse of alcohol or illicit drugs. FAMILY HISTORY Positive for prostate cancer, colon cancer, Alzheimer, Parkinsonism. Prostate cancer in her father and colon cancer in her father too. CURRENT MEDICATIONS 1. Oxycodone 5 mg q.4h. p.r.n. for pain. 2. Lasix 20 mg daily. 3. Zofran 8 mg q.8h. p.r.n. for nausea and vomiting. 4. Lexapro 20 mg daily. 5. Ativan 1 mg at bedtime for nausea. 6. Protonix 40 mg daily. ALLERGIES PENICILLIN. REVIEW OF SYSTEMS CONSTITUTIONAL: No appetite or weight change. No fever, chills or sweating. No recent infection. HEENT: Ears: No tinnitus or hearing problem. Nose: No nasal discharge or epistaxis. Throat: No sore throat or mouth ulcers. Eyes: No diplopia or visual changes. RESPIRATORY: Patient has cough with expectoration. CARDIOVASCULAR: No chest pain, orthopnea, or paroxysmal nocturnal dyspnea (PND) . No edema. No palpitations. GASTROINTESTINAL: Patient has alternating diarrhea and constipation. No nausea or vomiting. No heartburn or swallowing difficulties. No abdominal pain. No jaundice. No hematemesis, melena or rectal bleeding. GENITOURINARY: No hematuria or dysuria. MUSCULOSKELETAL: No pain in the muscles, joints or bones. NEUROLOGICAL: She has tingling and numbness in the hands and feet from her neuropathy and Guillain-Quincy syndrome. HEMATOLOGIC/LYMPHATIC: No bleeding or easy bruising. No weakness or fatigued. No enlarged lymph nodes. SKIN: No skin rash or lumps. PSYCHIATRIC: No anxiety or depression. PHYSICAL EXAMINATION GENERAL: Looks stable. Well-developed, well-nourished, and in no acute distress. VITAL SIGNS: Blood pressure 137/79, pulse 84 per minute, respirations 16 per minute, temperature 97.6, pulse oximetry 91% on room air. HEENT: Head: Atraumatic. No sinus tenderness to palpation. Eyes: No icterus or conjunctivitis. Mouth and throat: No oral thrush or mucositis. NECK: Supple. No cervical or supraclavicular lymphadenopathy. LUNGS: Clear to auscultation and percussion bilaterally. HEART: Regular rate and rhythm. No gallops, murmurs, clicks or rubs. ABDOMEN: Soft and lax. No tenderness. No hepatosplenomegaly. No masses. EXTREMITIES: No cyanosis, clubbing or edema. LYMPHATICS: No peripheral lymphadenopathy. NEUROLOGICAL: Conscious, alert and oriented times three. No focal motor or sensory deficits. PSYCHIATRIC: Mood and affect appear normal. SKIN: No skin rash, bruise or purpuric eruption. DIAGNOSTIC DATA CBC showed white count of 7.3, hemoglobin 15.2, hematocrit 45.2, platelets 202, 000. Chem panel is totally normal. CEA is 5.1 which is down from 5.8. ASSESSMENT 1. Recurrent metastatic colon cancer. Patient initially diagnosed with stage III, and she received 11 cycles of chemotherapy with FOLFOX, and on progression she received FOLFIRI for four cycles. The first two cycles were full dose, and the last two cycles were 25% dose reduction because of severe reaction to FOLFIRI. Patient had partial hepatectomy for her metastatic lesion in the liver done June 07, 2016. Tumor was 3.3 cm mucinous adenocarcinoma. KRAS and NRAS mutations came back negative, but BRAF mutation came back positive. Tumor was micro satellite instability high. For this reason patient started treatment with Keytruda September 20, 2016. She is tolerating treatment very well, and her general condition improved a lot. Her PET scan done March 24, 2017 did not show any evidence of progression. I am planning to continue the same treatment with Keytruda. I will see her again in three weeks prior to the next dose of Keytruda with CBC, chem panel, CEA, TSH, free T4 and free T3. 2. Right adrenal mass, stable by PET scan done October and February 2017. 3. Guillain-Quin[place] syndrome, wheelchair bound. 4. Hepatic metastasis from colon cancer status post resection, currently on Keytruda with stable disease. PLAN 1. Proceed with Keytruda therapy today. 2. Patient to return in three weeks with CBC, chem panel, CEA, TSH, free T3 and free T4. 3. Patient to contact us for any new concern or complaints. MTDD
[2017-10-10 09:21] VITALS: BP 108/81
[2017-10-10] MEDS: PEMBROLIZUMAB 100 MG/4 ML SDV 200 MG in NS(*) 0.9% 50 ML BAG 50 ML IV PRN (10:32)
[2017-10-10] MEDS: HEPARIN FLSH (PORT) 500 UN/5ML IVP PRN (11:39)
[2017-10-10] MEDS: LIDOCAINE/SOD BICARB 8.4% SYR ID PRN (11:39)
[2017-10-10] MEDS: NS(*) 0.9% 100 ML BAG 100 ML IVPB PRN (13:52)
--- NOTE | 2017-10-10 17:50 | ONCOLOGY FOLLOW UP NOTE ---
EVENT DATE: October 10, 2017 DIAGNOSES 1. Metastatic colon cancer. 2. Guillain-Williams syndrome. CHIEF COMPLAINT The patient is here today for followup of her metastatic colon cancer on treatment with Keytruda. ONCOLOGY HISTORY The patient is a 71-year-old female with the following oncology history. 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 Biopsy of the right tube and ovary consistent with spindle stroma. 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 Her colonoscopy on December 2014 was unremarkable. On June 07, 2015, PET-CT scan showed postoperative changes of right hemicolectomy was 2.2 cm hypermetabolic left external iliac lymph node with non-FDG avid 1.8 cm low density lesion in the dome of the liver which was not previously seen with suspected cyst. There was an 8 mm mesenteric lymph node near the aortic bifurcation not significantly changed from prior exam. On June 01, 2015 left iliac lymph node core biopsy was benign lymph node with reactive changes, negative for malignancy. On August 11, 2015, CT scan showed enlarging 2.1 cm low density liver lesion with slight lobulated/irregular margins suggestive of cyst, but necrotic metastasis cannot be excluded. 8 mm right lobe liver lesion stable consistent with cyst. Stable left external iliac lymph node. 3.6 cm right adrenal adenoma. On November 03, 2015 CT showed 2 cm hypodense liver lesion with indistinct margins in the right lobe at the dome, essentially unchanged. On January 28, 2015, PET-CT scan showed previous right hemicolectomy, increase in the size of the lesion near the dome of the right hepatic lobe, now measuring 3.3 x 2.5 cm with borderline increased metabolic activity, consistent with metastasis. There was hypermetabolic left external iliac and mesenteric lymphadenopathy which was slightly more metabolically reactive than prior with stable 3.5 x 3.1 cm right adrenal gland mass with increased metabolic activity. The patient also during this period of time showed rising of her CEA. CT of chest, abdomen and pelvis done on May 06, 2016 identified changes of the previous right colectomy; pelvic lymph nodes are impaired when compared to January. Hypo-enhancing lesion in the dome of the liver is mildly increased. Right adrenal nodule is stable, likely benign. CT-guided biopsy of the liver lesion led to the right hepatectomy done on June 07, 2016. Biopsy of the left lateral section cyst showed mild steatotic liver with denuded cyst, consistent with solitary bile duct cyst. Right hepatectomy came back positive for mucinous adenocarcinoma, 3.3 cm tumor, morphologically consistent with metastatic high-grade colon cancer in the liver. Margins were negative with background steatosis. KRAS and NRAS mutations came back negative, but BRAF mutation came back positive. Microsatellite instability testing came back high, so the patient could get benefit from checkpoint inhibitors. The patient started treatment with Keytruda given that her microsatellite instability was high on September 20, 2016. HISTORY OF PRESENT ILLNESS The patient is here today for followup of her metastatic colon cancer on treatment with Keytruda. Patient really doing very well currently on that treatment. She is complaining of alternating diarrhea and constipation sometimes. 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 She has also occasional headache. Other than that she really doing very well. PAST MEDICAL HISTORY 1. Recurrent metastatic colon cancer. 2. Arthritis. 3. Guillain-Williams Syndrome. PAST SURGICAL HISTORY 1. Fracture surgery of right leg, two plates and screws. 2. Colonic surgeries. 3. Right hemicolectomy on April 04, 2013. 4. Right hepatectomy June 07, 2016. SOCIAL HISTORY The patient is . His spouse is disabled. She is a former smoker. She quit on November 29, 2010. Denies any smokeless tobacco. No abuse of alcohol or illicit drugs. FAMILY HISTORY Positive for prostate cancer, colon cancer, Alzheimer, Parkinsonism. Prostate cancer in her father and colon cancer in her father too. CURRENT MEDICATIONS 1. Oxycodone 5 mg q.4h. p.r.n. for pain. 2. Lasix 20 mg daily. 3. Zofran 8 mg q.8h. p.r.n. for nausea and vomiting. 4. Lexapro 20 mg daily. 5. Ativan 1 mg at bedtime for nausea. 6. Protonix 40 mg daily. ALLERGIES PENICILLIN. REVIEW OF SYSTEMS CONSTITUTIONAL: No appetite or weight change. No fever, chills or sweating. No recent infection. HEENT: Ears: No tinnitus or hearing problem. Nose: No nasal discharge or epistaxis. Throat: No sore throat or mouth ulcers. Eyes: No diplopia or visual changes. RESPIRATORY: Patient has cough with expectoration. CARDIOVASCULAR: No chest pain, orthopnea, or paroxysmal nocturnal dyspnea (PND) . No edema. No palpitations. GASTROINTESTINAL: Patient has alternating diarrhea and constipation. No nausea or vomiting. No heartburn or swallowing difficulties. No abdominal pain. No jaundice. No hematemesis, melena or rectal bleeding. GENITOURINARY: No hematuria or dysuria. MUSCULOSKELETAL: No pain in the muscles, joints or bones. NEUROLOGICAL: She has neuropathy, mainly in the hands, more on the left than the right hand. She has occasional headache. HEMATOLOGIC/LYMPHATIC: No bleeding or easy bruising. No weakness or fatigued. No enlarged lymph nodes. SKIN: No skin rash or lumps. PSYCHIATRIC: No anxiety or depression. PHYSICAL EXAMINATION GENERAL: Looks stable. Well-developed, well-nourished, and in no acute distress. VITAL SIGNS: Blood pressure 108/81, pulse 76 per minute, respirations 16 per minute, temperature 97.8, pulse oximetry 93% on room air. HEENT: Head: Atraumatic. No sinus tenderness to palpation. Eyes: No icterus or conjunctivitis. Mouth and throat: No oral thrush or mucositis. NECK: Supple. No cervical or supraclavicular lymphadenopathy. LUNGS: Clear to auscultation and percussion bilaterally. HEART: Regular rate and rhythm. No gallops, murmurs, clicks or rubs. ABDOMEN: Soft and lax. No tenderness. No hepatosplenomegaly. No masses. EXTREMITIES: No cyanosis, clubbing or edema. LYMPHATICS: No peripheral lymphadenopathy. NEUROLOGICAL: Conscious, alert and oriented times three. No focal motor or sensory deficits. PSYCHIATRIC: Mood and affect appear normal. SKIN: No skin rash, bruise or purpuric eruption. DIAGNOSTIC DATA CBC showed white count of 8.3, hemoglobin 14.6, hematocrit 42.8, platelets 212, 000. CEA last report was 5.9, and her level for today is pending. ASSESSMENT 1. Recurrent metastatic colon cancer. Patient initially diagnosed with stage III, and she received 11 cycles of chemotherapy with FOLFOX, and on progression she received FOLFIRI for four cycles. The first two cycles were full dose, and the last two cycles were 25% dose reduction because of severe reaction to FOLFIRI. Patient had partial hepatectomy for her metastatic lesion in the liver done June 07, 2016. Tumor was 3.3 cm mucinous adenocarcinoma. KRAS and NRAS mutations came back negative, but BRAF mutation came back positive. Tumor was microsatellite instability high, and for this reason patient started treatment with Keytruda September 20, 2016. She is tolerating treatment very well, and her general condition is much better. PET scan done March 24, 2017 did not show any evidence of progression. Her current CEA is 5.9 and her level for today is pending. I am planning to proceed with her Keytruda. I will see her again in three weeks with CBC, chem panel, TSH, free T3 and free T4. 2. Right adrenal mass, stable by PET scan done October and February 2017. 3. Guillain-Williams syndrome, wheelchair bound. 4. Hepatic metastasis from colon cancer status post resection, currently on Keytruda with stable disease. PLAN 1. Proceed with Keytruda today. 2. Patient to return in three weeks with CBC, chem panel, CEA, TSH, free T3 and free T4. 3. Patient to contact us for any new concern or complaints. MTDD
[2017-10-31 08:54] VITALS: BP 126/89
[2017-10-31] MEDS: LIDOCAINE/SOD BICARB 8.4% SYR ID PRN (09:21)
[2017-10-31] MEDS: HEPARIN FLSH (PORT) 500 UN/5ML IVP PRN (09:22)
[2017-10-31] MEDS: NS(*) 0.9% 500 ML BAG 500 ML IV PRN (09:22)
[2017-10-31] MEDS: PEMBROLIZUMAB 100 MG/4 ML SDV 200 MG in NS(*) 0.9% 50 ML BAG 50 ML IV PRN (10:23)
[2017-10-31 11:22] VITALS: BP 148/91
--- NOTE | 2017-10-31 15:29 | ONCOLOGY FOLLOW UP NOTE ---
EVENT DATE: 2017 DIAGNOSES 1. Metastatic colon cancer. 2. Guillain-Evanston syndrome. CHIEF COMPLAINT The patient is here today for followup of her metastatic colon cancer on treatment with Keytruda. ONCOLOGY HISTORY The patient is a 71-year-old female with the following oncology history. 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 Biopsy of the right tube and ovary consistent with spindle stroma. 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 Her colonoscopy on December 2014 was unremarkable. On June 07, 2015, PET-CT scan showed postoperative changes of right hemicolectomy was 2.2 cm hypermetabolic left external iliac lymph node with non-FDG avid 1.8 cm low density lesion in the dome of the liver which was not previously seen with suspected cyst. There was an 8 mm mesenteric lymph node near the aortic bifurcation not significantly changed from prior exam. On June 01, 2015 left iliac lymph node core biopsy was benign lymph node with reactive changes, negative for malignancy. On August 11, 2015, CT scan showed enlarging 2.1 cm low density liver lesion with slight lobulated/irregular margins suggestive of cyst, but necrotic metastasis cannot be excluded. 8 mm right lobe liver lesion stable consistent with cyst. Stable left external iliac lymph node. 3.6 cm right adrenal adenoma. On November 03, 2015 CT showed 2 cm hypodense liver lesion with indistinct margins in the right lobe at the dome, essentially unchanged. On January 28, 2015, PET-CT scan showed previous right hemicolectomy, increase in the size of the lesion near the dome of the right hepatic lobe, now measuring 3.3 x 2.5 cm with borderline increased metabolic activity, consistent with metastasis. There was hypermetabolic left external iliac and mesenteric lymphadenopathy which was slightly more metabolically reactive than prior with stable 3.5 x 3.1 cm right adrenal gland mass with increased metabolic activity. The patient also during this period of time showed rising of her CEA. CT of chest, abdomen and pelvis done on May 06, 2016 identified changes of the previous right colectomy; pelvic lymph nodes are impaired when compared to January. Hypo-enhancing lesion in the dome of the liver is mildly increased. Right adrenal nodule is stable, likely benign. CT-guided biopsy of the liver lesion led to the right hepatectomy done on June 07, 2016. Biopsy of the left lateral section cyst showed mild steatotic liver with denuded cyst, consistent with solitary bile duct cyst. Right hepatectomy came back positive for mucinous adenocarcinoma, 3.3 cm tumor, morphologically consistent with metastatic high-grade colon cancer in the liver. Margins were negative with background steatosis. KRAS and NRAS mutations came back negative, but BRAF mutation came back positive. Microsatellite instability testing came back high, so the patient could get benefit from checkpoint inhibitors. The patient started treatment with Keytruda given that her microsatellite instability was high on September 20, 2016. HISTORY OF PRESENT ILLNESS The patient is here today for followup of her metastatic colon cancer on Keytruda therapy. She is complaining of alternating diarrhea and constipation. She has neuropathy in her hands, more on the left than the right. She has occasional headache. She is weak, tired and fatigued sometimes. PAST MEDICAL HISTORY 1. Recurrent metastatic colon cancer. 2. Arthritis. 3. Guillain-Evanston Syndrome. PAST SURGICAL HISTORY 1. Fracture surgery of right leg, two plates and screws. 2. Colonic surgeries. 3. Right hemicolectomy on April 04, 2013. 4. Right hepatectomy June 07, 2016. SOCIAL HISTORY The patient is . His spouse is disabled. She is a former smoker. She quit on November 29, 2010. Denies any smokeless tobacco. No abuse of alcohol or illicit drugs. FAMILY HISTORY Positive for prostate cancer, colon cancer, Alzheimer, Parkinsonism. Prostate cancer in her father and colon cancer in her father too. CURRENT MEDICATIONS 1. Oxycodone 5 mg q.4h. p.r.n. for pain. 2. Lasix 20 mg daily. 3. Zofran 8 mg q.8h. p.r.n. for nausea and vomiting. 4. Lexapro 20 mg daily. 5. Ativan 1 mg at bedtime for nausea. 6. Protonix 40 mg daily. ALLERGIES PENICILLIN. REVIEW OF SYSTEMS CONSTITUTIONAL: No appetite or weight change. No fever, chills or sweating. No recent infection. HEENT: Ears: No tinnitus or hearing problem. Nose: No nasal discharge or epistaxis. Throat: No sore throat or mouth ulcers. Eyes: No diplopia or visual changes. RESPIRATORY: Patient has cough with expectoration. CARDIOVASCULAR: No chest pain, orthopnea, or paroxysmal nocturnal dyspnea (PND) . No edema. No palpitations. GASTROINTESTINAL: Patient has alternating diarrhea and constipation. No nausea or vomiting. No heartburn or swallowing difficulties. No abdominal pain. No jaundice. No hematemesis, melena or rectal bleeding. GENITOURINARY: No hematuria or dysuria. MUSCULOSKELETAL: No pain in the muscles, joints or bones. NEUROLOGICAL: She has tingling and numbness in the hands, more on the left than the right hand. She has also headache occasionally. She is weak, tired and fatigued. HEMATOLOGIC/LYMPHATIC: No bleeding or easy bruising. No weakness or fatigued. No enlarged lymph nodes. SKIN: No skin rash or lumps. PSYCHIATRIC: No anxiety or depression. PHYSICAL EXAMINATION GENERAL: Looks stable. Well-developed, well-nourished, and in no acute distress. VITAL SIGNS: Blood pressure 126/89, pulse 83 per minute, respirations 16 per minute, temperature 98, pulse oximetry 90% on room air. HEENT: Head: Atraumatic. No sinus tenderness to palpation. Eyes: No icterus or conjunctivitis. Mouth and Throat: No oral thrush or mucositis. NECK: Supple. No cervical or supraclavicular lymphadenopathy. LUNGS: Clear to auscultation and percussion bilaterally. HEART: Regular rate and rhythm. No gallops, murmurs, clicks or rubs. ABDOMEN: Soft and lax. No tenderness. No hepatosplenomegaly. No masses. EXTREMITIES: No cyanosis, clubbing or edema. LYMPHATICS: No peripheral lymphadenopathy. NEUROLOGICAL: Conscious, alert and oriented times three. No focal motor or sensory deficits. PSYCHIATRIC: Mood and affect appear normal. SKIN: No skin rash, bruise or purpuric eruption. DIAGNOSTIC DATA CBC showed white count of 6.7, hemoglobin 14.7, hematocrit 43.1, platelets 185, 000. Chem panel totally normal except blood sugar 117. CEA is 5.6, which is down from 5.9. Her level for today is pending. ASSESSMENT 1. Recurrent metastatic colon cancer. Patient initially diagnosed with stage III, and she received 11 cycles of chemotherapy with FOLFOX, and on progression she received FOLFIRI for four cycles. The first two cycles were full dose, and the last two cycles were 25% dose reduced because of severe reaction to FOLFIRI. Patient had partial hepatectomy for her metastatic lesion in the liver done June 07, 2016. Tumor was 3.3 cm mucinous adenocarcinoma. KRAS and NRAS mutations came back negative, but BRAF mutation came back positive. Tumor was microsatellite instability high, and for this reason patient started treatment with Keytruda September 20, 2016. She is tolerating treatment very well, and her general condition is much better so far. Her PET scan done February did not show any evidence of progression. Her current CEA is 5.6, down from 5.9, and her level for today is pending. I am planning to proceed with her Keytruda therapy today. I will see her in three weeks from now with CBC, chem panel, CEA, and I will get a PET scan before the next cycle. I will check also her free T3 and free T4 and TSH. 2. Right adrenal mass, stable by PET scan done October 2016 and February 2017. 3. Guillain-Evanston syndrome, wheelchair bound. 4. Hepatic metastasis from colon cancer status post resection, on Keytruda with stable disease. PLAN 1. Proceed with Keytruda therapy. 2. Patient to return in three weeks with CBC, chem panel, CEA, TSH, free T3 and free T4 and PET CT scan. 3. Patient to contact us for any new concerns or complaints. MTDD
[~2017-11-21] VITALS: Ht 175.3 cm; Wt 101.0 kg
[~2017-11-21 08:38] MED LIST changes: -NS(*) 0.9% 100 ML BAG 100 ML IVPB PRN; -NS(*) 0.9% 500 ML BAG 500 ML IV PRN; -PEMBROLIZUMAB 100 MG/4 ML SDV 200 MG in NS(*) 0.9% 50 ML BAG 50 ML IV ONE; -PEMBROLIZUMAB 100 MG/4 ML SDV 200 MG in NS(*) 0.9% 50 ML BAG 50 ML IV PRN
[2017-11-21 08:49] VITALS: BP 118/78
[2017-11-21] MEDS: LIDOCAINE/SOD BICARB 8.4% SYR ID PRN (09:03)
[2017-11-21] MEDS: HEPARIN FLSH (PORT) 500 UN/5ML IVP PRN (09:04)
[2017-11-21] MEDS: NS(*) 0.9% 100 ML BAG 100 ML IVPB PRN (09:04)
[2017-11-21] MEDS: NS(*) 0.9% 500 ML BAG 500 ML IV PRN (09:04)
[2017-11-21 09:11] VITALS: BP 144/86
[2017-11-21 09:14] VITALS: BP 144/86
[2017-11-21] MEDS: PEMBROLIZUMAB 100 MG/4 ML SDV 200 MG in NS(*) 0.9% 50 ML BAG 50 ML IV PRN (10:55)
[2017-11-21 11:39] VITALS: BP 130/73
--- NOTE | 2017-11-21 17:26 | ONCOLOGY FOLLOW UP NOTE ---
EVENT DATE: November 21, 2017 DIAGNOSES 1. Metastatic colon cancer. 2. Guillain-Jefferson syndrome. CHIEF COMPLAINT The patient is here today for followup of her metastatic colon cancer on treatment with Keytruda. ONCOLOGY HISTORY The patient is a 71-year-old female with the following oncology history. 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 Biopsy of the right tube and ovary consistent with spindle stroma. 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 Her colonoscopy on December 2014 was unremarkable. On June 07, 2015, PET-CT scan showed postoperative changes of right hemicolectomy was 2.2 cm hypermetabolic left external iliac lymph node with non-FDG avid 1.8 cm low density lesion in the dome of the liver which was not previously seen with suspected cyst. There was an 8 mm mesenteric lymph node near the aortic bifurcation not significantly changed from prior exam. On June 01, 2015 left iliac lymph node core biopsy was benign lymph node with reactive changes, negative for malignancy. On August 11, 2015, CT scan showed enlarging 2.1 cm low density liver lesion with slight lobulated/irregular margins suggestive of cyst, but necrotic metastasis cannot be excluded. 8 mm right lobe liver lesion stable consistent with cyst. Stable left external iliac lymph node. 3.6 cm right adrenal adenoma. On November 03, 2015 CT showed 2 cm hypodense liver lesion with indistinct margins in the right lobe at the dome, essentially unchanged. On January 28, 2015, PET-CT scan showed previous right hemicolectomy, increase in the size of the lesion near the dome of the right hepatic lobe, now measuring 3.3 x 2.5 cm with borderline increased metabolic activity, consistent with metastasis. There was hypermetabolic left external iliac and mesenteric lymphadenopathy which was slightly more metabolically reactive than prior with stable 3.5 x 3.1 cm right adrenal gland mass with increased metabolic activity. The patient also during this period of time showed rising of her CEA. CT of chest, abdomen and pelvis done on May 06, 2016 identified changes of the previous right colectomy; pelvic lymph nodes are impaired when compared to January. Hypo-enhancing lesion in the dome of the liver is mildly increased. Right adrenal nodule is stable, likely benign. CT-guided biopsy of the liver lesion led to the right hepatectomy done on June 07, 2016. Biopsy of the left lateral section cyst showed mild steatotic liver with denuded cyst, consistent with solitary bile duct cyst. Right hepatectomy came back positive for mucinous adenocarcinoma, 3.3 cm tumor, morphologically consistent with metastatic high-grade colon cancer in the liver. Margins were negative with background steatosis. KRAS and NRAS mutations came back negative, but BRAF mutation came back positive. Microsatellite instability testing came back high, so the patient could get benefit from checkpoint inhibitors. The patient started treatment with Keytruda given that her microsatellite instability was high on September 20, 2016. HISTORY OF PRESENT ILLNESS The patient is here today for followup of her metastatic colon cancer on treatment with Keytruda. She is doing fine currently except for alternating diarrhea and constipation which is chronic for her. 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 She is weak, tired and fatigued, but other than that she is really doing very well. PAST MEDICAL HISTORY 1. Recurrent metastatic colon cancer. 2. Arthritis. 3. Guillain-Jefferson Syndrome. PAST SURGICAL HISTORY 1. Fracture surgery of right leg, two plates and screws. 2. Colonic surgeries. 3. Right hemicolectomy on April 04, 2013. 4. Right hepatectomy June 07, 2016. SOCIAL HISTORY The patient is . His spouse is disabled. She is a former smoker. She quit on November 29, 2010. Denies any smokeless tobacco. No abuse of alcohol or illicit drugs. FAMILY HISTORY Positive for prostate cancer, colon cancer, Alzheimer, Parkinsonism. Prostate cancer in her father and colon cancer in her father too. CURRENT MEDICATIONS 1. Oxycodone 5 mg q.4h. p.r.n. for pain. 2. Lasix 20 mg daily. 3. Zofran 8 mg q.8h. p.r.n. for nausea and vomiting. 4. Lexapro 20 mg daily. 5. Ativan 1 mg at bedtime for nausea. 6. Protonix 40 mg daily. ALLERGIES PENICILLIN. REVIEW OF SYSTEMS CONSTITUTIONAL: No appetite or weight change. No fever, chills or sweating. No recent infection. HEENT: Ears: No tinnitus or hearing problem. Nose: No nasal discharge or epistaxis. Throat: No sore throat or mouth ulcers. Eyes: No diplopia or visual changes. RESPIRATORY: Patient has cough with expectoration. CARDIOVASCULAR: No chest pain, orthopnea, or paroxysmal nocturnal dyspnea (PND) . No edema. No palpitations. GASTROINTESTINAL: She has alternating diarrhea and constipation. No nausea or vomiting. No heartburn or swallowing difficulties. No abdominal pain. No jaundice. No hematemesis, melena or rectal bleeding. GENITOURINARY: No hematuria or dysuria. MUSCULOSKELETAL: No pain in the muscles, joints or bones. NEUROLOGICAL: She has tingling and numbness in the hands from neuropathy. She has also numbness in her lower extremities from Guillain-Jefferson. HEMATOLOGIC/LYMPHATIC: No bleeding or easy bruising. She is weak, tired and fatigued. No enlarged lymph nodes. SKIN: No skin rash or lumps. PSYCHIATRIC: No anxiety or depression. PHYSICAL EXAMINATION GENERAL: Looks stable. Well-developed, well-nourished, and in no acute distress. VITAL SIGNS: Blood pressure 144/86, pulse 78 per minute, respirations 16 per minute, temperature 98.1, pulse oximetry 89% on room air. HEENT: Head: Atraumatic. No sinus tenderness to palpation. Eyes: No icterus or conjunctivitis. Mouth and Throat: No oral thrush or mucositis. NECK: Supple. No cervical or supraclavicular lymphadenopathy. LUNGS: Clear to auscultation and percussion bilaterally. HEART: Regular rate and rhythm. No gallops, murmurs, clicks or rubs. ABDOMEN: Soft and lax. No tenderness. No hepatosplenomegaly. No masses. EXTREMITIES: No cyanosis, clubbing or edema. LYMPHATICS: No peripheral lymphadenopathy. NEUROLOGICAL: She is conscious, alert and oriented times three. She is wheelchair bound because of her Guillain-Jefferson syndrome. PSYCHIATRIC: Mood and affect appear normal. SKIN: No skin rash, bruise or purpuric eruption. DIAGNOSTIC DATA Chem panel, CEA and CBC are pending. PET/CT scan done on November 14, 2017 showed possible 2.8 cm hyperdense non-FDG avid left frontal brain mass. Otherwise PET/ CT scan is stable. The right adrenal lesion 3.5 x 3.4 cm with FDG uptake maximum 4.2 is stable. The metabolically active left external iliac lymph node 2.3 cm SUV is 5.7, which is down from 9.6. ASSESSMENT 1. Recurrent metastatic colon cancer. Patient initially diagnosed with stage III, and she received 11 cycles of chemotherapy with FOLFOX, and on progression she received FOLFIRI for four cycles. The first two cycles were full dose, and the last two cycles were 25% dose reduced because of severe reaction to FOLFIRI. Patient had partial hepatectomy for the metastatic lesion in the liver done June 07, 2016. Tumor was 3.3 cm mucinous adenocarcinoma. KRAS and NRAS mutations came back negative, but BRAF mutation was positive. Tumor was microsatellite instability high, and for this reason patient started treatment with Keytruda September 20, 2016. She did very well with her treatment. Apart from having mild fatigue, patient really is doing very well. Her general condition improved. Her PET scan March 24, 2017 and the recent one on November 14, 2017 did not show any evidence of progression. Actually the left external iliac lymph node showed less activity and the SUV dropped from 9.6 to 5.7. I am planning to proceed with Keytruda every three weeks. I will see her in three weeks with CBC, chem panel and CEA, and I will repeat her PET scan every six months. I am planning also to check her T3, free T4 and TSH. 2. Right adrenal mass, stable by PET scan done October 2016, February 2017 and October 2017. . 3. Guillain-Jefferson syndrome, wheelchair bound. 4. Hepatic metastasis from colon cancer status post resection, on Keytruda with stable disease. PLAN 1. Proceed with Keytruda therapy. 2. Patient to return in three weeks with CBC, chem panel, CEA, TSH, free T3 and free T4. 3. MRI of the brain with and without contrast for evaluation of the abnormal PET scan of the brain. 4. Patient to contact us for any new concerns or complaints. MTDD
== END 2017-11-26 ==
LOC: ONC 08:38
PROVIDERS: ATTEND Internal Medicine Hematology
DX: Z51.11 Encounter for antineoplastic chemotherapy (principal); C18.9 Malignant neoplasm of colon, unspecified; C78.7 Secondary malignant neoplasm of liver and intrahepatic bile duct; G61.0 Guillain-Barre syndrome; Z92.21 Personal history of antineoplastic chemotherapy; R05 Cough; G62.0 Drug-induced polyneuropathy; Z87.891 Personal history of nicotine dependence; E27.8 Other specified disorders of adrenal gland; R19.7 Diarrhea, unspecified; K59.00 Constipation, unspecified
CPT/HCPCS: 82378; 83735; 84439; 84443; 84480; 84481; 85027; 96365; 96413; J1642; J7040; J7050; J9271; 82040; 82247; 82310; 82374; 82435; 82565; 82947; 84075; 84132; 84155; 84295; 84450; 84460; 84520

== ENCOUNTER → 2017-11-27 | Outpatient (CLI) | payer MEDICARE, BC ==
[2016-06-29 12:32] VITALS: BMI 29.5
[~2017-11-27] MED LIST changes: -ALTEPLASE RECOMB 2 MG VIAL IVP PRN; -DEXTROSE 5%(*) 100 ML BAG 100 ML IVPB PRN; -WATER STERILE 10 ML VIAL IVP PRN
== END ==
LOC: MRI 11-25 07:02
PROVIDERS: ATTEND Internal Medicine Hematology
DX: Z02.9 Encounter for administrative examinations, unspecified (principal)

== ENCOUNTER 2018-02-13 08:06 | Outpatient (RCR) | payer MEDICARE, BC ==
[2016-06-29 12:32] VITALS: Ht 175.3 cm; Wt 102.6 kg
[2017-11-27 14:28] VITALS: BP 147/92
[2017-11-27] MEDS: LIDOCAINE/SOD BICARB 8.4% SYR ID PRN (14:45)
[2017-11-27] MEDS: HEPARIN FLSH (PORT) 500 UN/5ML IVP PRN (14:45)
--- NOTE | 2017-11-27 16:11 | RADIOLOGY IMAGING REPORT ---
FACILITY: [facility] PATIENT NAME: Yuliet Hernandez : 1945 MR: [id number] V: [id number] EXAM DATE: ORDERING PHYSICIAN: WILLIAM SERRANO TECHNOLOGIST: Location: [facility] Patient: Yuliet Hernandez : 1945 Visit/Account:[id number] Date of Sevice: 11/27/2017 BRAIN W W/O CONTRAST History of colon cancer, brain mass seen on recent PET/CT ADDITIONAL PERTINENT HISTORY: None. COMPARISON STUDIES: PET/CT November 14, 2017 and prior MR the brain December 12, 2010 TECHNIQUE: Multi-planar, multi-sequence brain MRI was performed with and without IV contrast adminis tration. Contrast: 15 mL MultiHance FINDINGS: Ventricles / sulci / fissures: Negative. Masses / hemorrhage / midline shift: There is a 2.6 x 2.3 x 2.4 cm intensely enhancing mass along th e floor of the left frontal lobe. There appears to be two enhancing dural tails this mass is isointe nse with respect to alcazar matter on the T1-weighted and T2-weighted images. There is a small amount o f adjacent white matter edema although no significant mass effect White matter: Extensive patchy areas of increased T2 and FLAIR signal intensity are seen throughout the periventricular white matter and bret although have advanced when compared to the prior study. T here is no associated contrast enhancement restricted diffusion or mass effect with these white matte r changes. Alcazar-white differentiation: As above Extra-axial fluid collections: No extra-axial fluid collections Intracranial vasculature and dural sinuses: Negative. Skull base / calvarium: There is hyperostosis frontalis interna Visualized mastoid air cells / paranasal sinuses: Is again noted in the right mastoid air cells Orbits: Negative. Upper neck:Negative. IMPRESSION: There is a 2.6 x 2.3 x 2.4 cm intensely enhancing mass along the floor the left frontal lobe with two enhancing dural tails. The MR appearance is highly suggestive of a meningioma. This was however no t present on the prior MR from December 12, 2010. Given this finding and the patient's history of colon cancer a three month follow-up MR of the brain with and without contrast is recommended for further e valuation. Advancing patchy nonspecific white matter disease as detailed above likely related to chronic microis chemic changes Report Dictated By: Leann Veloz MD at 11/27/2017 3:54 PM Report E-Signed By: Leann Veloz MD at 11/27/2017 4:08 PM CHARLES:LITZY
[2017-12-12 08:25] VITALS: BP 146/91
[2017-12-12] MEDS: LIDOCAINE/SOD BICARB 8.4% SYR ID PRN (10:00)
[2017-12-12] MEDS: HEPARIN FLSH (PORT) 500 UN/5ML IVP PRN (11:00)
[2018-01-02 08:56] VITALS: BP 139/82
[2018-01-02 09:03] VITALS: BP 139/82
[2018-01-02] MEDS: NS(*) 0.9% 100 ML BAG 100 ML IVPB PRN (09:16)
[2018-01-02] MEDS: LIDOCAINE/SOD BICARB 8.4% SYR ID PRN (09:16)
[2018-01-02] MEDS: HEPARIN FLSH (PORT) 500 UN/5ML IVP PRN (10:49)
[2018-01-02 10:56] VITALS: BP 123/66
--- NOTE | 2018-01-02 16:51 | ONCOLOGY FOLLOW UP NOTE ---
EVENT DATE: January 02, 2018 DIAGNOSES 1. Metastatic colon cancer. 2. Guillain-[place] syndrome. CHIEF COMPLAINT Patient is here today for followup of her metastatic colon cancer and treatment with Keytruda. ONCOLOGY HISTORY The patient is a 71-year-old female with the following oncology history. 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 Biopsy of the right tube and ovary consistent with spindle stroma. 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 Her colonoscopy on December 2014 was unremarkable. On June 07, 2015, PET-CT scan showed postoperative changes of right hemicolectomy was 2.2 cm hypermetabolic left external iliac lymph node with non-FDG avid 1.8 cm low density lesion in the dome of the liver which was not previously seen with suspected cyst. There was an 8 mm mesenteric lymph node near the aortic bifurcation not significantly changed from prior exam. On June 01, 2015 left iliac lymph node core biopsy was benign lymph node with reactive changes, negative for malignancy. On August 11, 2015, CT scan showed enlarging 2.1 cm low density liver lesion with slight lobulated/irregular margins suggestive of cyst, but necrotic metastasis cannot be excluded. 8 mm right lobe liver lesion stable consistent with cyst. Stable left external iliac lymph node. 3.6 cm right adrenal adenoma. On November 03, 2015 CT showed 2 cm hypodense liver lesion with indistinct margins in the right lobe at the dome, essentially unchanged. On January 28, 2015, PET-CT scan showed previous right hemicolectomy, increase in the size of the lesion near the dome of the right hepatic lobe, now measuring 3.3 x 2.5 cm with borderline increased metabolic activity, consistent with metastasis. There was hypermetabolic left external iliac and mesenteric lymphadenopathy which was slightly more metabolically reactive than prior with stable 3.5 x 3.1 cm right adrenal gland mass with increased metabolic activity. The patient also during this period of time showed rising of her CEA. CT of chest, abdomen and pelvis done on May 06, 2016 identified changes of the previous right colectomy; pelvic lymph nodes are impaired when compared to January. Hypo-enhancing lesion in the dome of the liver is mildly increased. Right adrenal nodule is stable, likely benign. CT-guided biopsy of the liver lesion led to the right hepatectomy done on June 07, 2016. Biopsy of the left lateral section cyst showed mild steatotic liver with denuded cyst, consistent with solitary bile duct cyst. Right hepatectomy came back positive for mucinous adenocarcinoma, 3.3 cm tumor, morphologically consistent with metastatic high-grade colon cancer in the liver. Margins were negative with background steatosis. KRAS and NRAS mutations came back negative, but BRAF mutation came back positive. Microsatellite instability testing came back high, so the patient could get benefit from checkpoint inhibitors. The patient started treatment with Keytruda given that her microsatellite instability was high on September 20, 2016. HISTORY OF PRESENT ILLNESS Patient is here today for followup of her metastatic colon cancer and treatment with Keytruda. She is doing fine currently, and her condition is stable on treatment. She is complaining of alternating diarrhea and constipation. She has occasional abdominal pain. She continues to have neuropathy in the hands and the feet. The neuropathy in her hands is from previous chemotherapy, while her neuropathy in the feet is from Guillain-Greens[place] syndrome. She has occasional headache. Other than that, she is really doing very well. PAST MEDICAL HISTORY 1. Recurrent metastatic colon cancer. 2. Arthritis. 3. Guillain-Greensboro Syndrome. PAST SURGICAL HISTORY 1. Fracture surgery of right leg, two plates and screws. 2. Colonic surgeries. 3. Right hemicolectomy on April 04, 2013. 4. Right hepatectomy June 07, 2016. SOCIAL HISTORY The patient is . His spouse is disabled. She is a former smoker. She quit on November 29, 2010. Denies any smokeless tobacco. No abuse of alcohol or illicit drugs. FAMILY HISTORY Positive for prostate cancer, colon cancer, Alzheimer, Parkinsonism. Prostate cancer in her father and colon cancer in her father too. CURRENT MEDICATIONS 1. Oxycodone 5 mg q.4h. p.r.n. for pain. 2. Lasix 20 mg daily. 3. Zofran 8 mg q.8h. p.r.n. for nausea and vomiting. 4. Lexapro 20 mg daily. 5. Ativan 1 mg at bedtime for nausea. 6. Protonix 40 mg daily. ALLERGIES PENICILLIN. REVIEW OF SYSTEMS CONSTITUTIONAL: No appetite or weight change. No fever, chills or sweating. No recent infection. HEENT: Ears: No tinnitus or hearing problem. Nose: No nasal discharge or epistaxis. Throat: No sore throat or mouth ulcers. Eyes: No diplopia or visual changes. RESPIRATORY: Patient has cough with expectoration. CARDIOVASCULAR: No chest pain, orthopnea, or paroxysmal nocturnal dyspnea (PND) . No edema. No palpitations. GASTROINTESTINAL: Patient has diarrhea and constipation and occasional abdominal pain. GENITOURINARY: No hematuria or dysuria. MUSCULOSKELETAL: No pain in the muscles, joints or bones. NEUROLOGICAL: She has tingling and numbness in the hands and feet. Also, she has occasional headache. HEMATOLOGIC/LYMPHATIC: No bleeding or easy bruising. She is weak, tired and fatigued. No enlarged lymph nodes. SKIN: No skin rash or lumps. PSYCHIATRIC: No anxiety or depression. PHYSICAL EXAMINATION GENERAL: Looks stable. Well-developed, well-nourished, and in no acute distress. VITAL SIGNS: lood pressure 179/82, pulse 80 per minute, respirations 16 per minute, temperature 97.3, pulse ox 91% on room air. HEENT: Head: Atraumatic. No sinus tenderness to palpation. Eyes: No icterus or conjunctivitis. Mouth and Throat: No oral thrush or mucositis. NECK: Supple. No cervical or supraclavicular lymphadenopathy. LUNGS: Clear to auscultation and percussion bilaterally. HEART: Regular rate and rhythm. No gallops, murmurs, clicks or rubs. ABDOMEN: Soft and lax. No tenderness. No hepatosplenomegaly. No masses. EXTREMITIES: No cyanosis, clubbing or edema. LYMPHATICS: No peripheral lymphadenopathy. NEUROLOGICAL: She is conscious, alert and oriented times three. She is wheelchair bound because of her Guillain-Greensboro syndrome. PSYCHIATRIC: Mood and affect appear normal. SKIN: No skin rash, bruise or purpuric eruption. DIAGNOSTIC DATA CBC showed white count 7.2, hemoglobin 14, hematocrit 41.4, platelets 177. Chem panel is within normal except chloride 108, calcium 8.2. Other parameters are normal. CEA is stable at 5.6, up from 5.4. TSH is normal at 2.2. Free T4 is normal at 1.15. Total T3 is normal at 88. ASSESSMENT 1. Recurrent metastatic colon cancer. Patient was initially diagnosed with stage III, and she received 11 cycles of chemotherapy with FOLFOX, and on progression, she received FOLFIRI for four cycles. The first two cycles were full dose, and the last two cycles were 25%dose reduced because of the severe reaction to FOLFIRI. Patient had partial hepatectomy for the metastatic lesion of the liver June 07, 2016. Tumor was 3.3 cm mucinous adenocarcinoma. KRAS and the NRAS mutations came back negative, but BRAF mutation came back positive. Tumor was microsatellite instability high, and for this reason, patient started treatment with Keytruda on September 20, 2016. She is doing very well with her treatment. Apart from having fatigue sometimes, her general condition really is very good on the treatment. PET scan March 24, 2017, and the recent one on November 14, 2017, did not show any evidence of progression. The left external iliac lymph node showed less activity, and the STP dropped from 9.6 to 5.7. Her tumor marker with CEA is stable, currently 5.6, which is up from 5.4. I plan to continue treatment with Keytruda every three weeks. I will see her in three weeks with CBC, chem panel, CEA, free T3, free T4, and TSH. I am planning to repeat her PET scan every six months. 2. Right adrenal mass, stable by PET scan October 2016, February 2017, and October 2017. 3. Guillain-Greensboro syndrome. Wheelchair bound. 4. Hepatic metastasis from colon cancer, status post resection. On Keytruda with stable disease. PLAN 1. Keytruda therapy today. 2. Patient to return in three weeks with CBC, chem panel, CEA, TSH, free T3, and free T4. 3. Patient to contact us for any new concerns or complaints. MTDD
[2018-01-23 09:20] VITALS: BP 119/68
[2018-01-23 09:28] VITALS: BP 119/68
[2018-01-23] MEDS: LIDOCAINE/SOD BICARB 8.4% SYR ID PRN (10:20)
[2018-01-23] MEDS: HEPARIN FLSH (PORT) 500 UN/5ML IVP PRN (10:21)
--- NOTE | 2018-01-23 16:19 | ONCOLOGY FOLLOW UP NOTE ---
EVENT DATE: January 23, 2018 DIAGNOSES 1. Metastatic colon cancer. 2. Guillain-Alexander syndrome. CHIEF COMPLAINT Patient is here today for followup of her metastatic colon cancer on treatment with Keytruda. ONCOLOGY HISTORY The patient is a 72-year-old female with the following oncology history. 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 Biopsy of the right tube and ovary consistent with spindle stroma. 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 Her colonoscopy on December 2014 was unremarkable. On June 07, 2015, PET-CT scan showed postoperative changes of right hemicolectomy was 2.2 cm hypermetabolic left external iliac lymph node with non-FDG avid 1.8 cm low density lesion in the dome of the liver which was not previously seen with suspected cyst. There was an 8 mm mesenteric lymph node near the aortic bifurcation not significantly changed from prior exam. On June 01, 2015 left iliac lymph node core biopsy was benign lymph node with reactive changes, negative for malignancy. On August 11, 2015, CT scan showed enlarging 2.1 cm low density liver lesion with slight lobulated/irregular margins suggestive of cyst, but necrotic metastasis cannot be excluded. 8 mm right lobe liver lesion stable consistent with cyst. Stable left external iliac lymph node. 3.6 cm right adrenal adenoma. On November 03, 2015 CT showed 2 cm hypodense liver lesion with indistinct margins in the right lobe at the dome, essentially unchanged. On January 28, 2015, PET-CT scan showed previous right hemicolectomy, increase in the size of the lesion near the dome of the right hepatic lobe, now measuring 3.3 x 2.5 cm with borderline increased metabolic activity, consistent with metastasis. There was hypermetabolic left external iliac and mesenteric lymphadenopathy which was slightly more metabolically reactive than prior with stable 3.5 x 3.1 cm right adrenal gland mass with increased metabolic activity. The patient also during this period of time showed rising of her CEA. CT of chest, abdomen and pelvis done on May 06, 2016 identified changes of the previous right colectomy; pelvic lymph nodes are impaired when compared to January. Hypo-enhancing lesion in the dome of the liver is mildly increased. Right adrenal nodule is stable, likely benign. CT-guided biopsy of the liver lesion led to the right hepatectomy done on June 07, 2016. Biopsy of the left lateral section cyst showed mild steatotic liver with denuded cyst, consistent with solitary bile duct cyst. Right hepatectomy came back positive for mucinous adenocarcinoma, 3.3 cm tumor, morphologically consistent with metastatic high-grade colon cancer in the liver. Margins were negative with background steatosis. KRAS and NRAS mutations came back negative, but BRAF mutation came back positive. Microsatellite instability testing came back high, so the patient could get benefit from checkpoint inhibitors. The patient started treatment with Keytruda given that her microsatellite instability was high on September 20, 2016. HISTORY OF PRESENT ILLNESS Patient is here today for followup of her metastatic colon cancer on treatment with Keytruda. She is doing currently very good. She has alternating diarrhea and constipation. 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 Other than that she is really denies any other complaints. PAST MEDICAL HISTORY 1. Recurrent metastatic colon cancer. 2. Arthritis. 3. Guillain-Alexander Syndrome. PAST SURGICAL HISTORY 1. Fracture surgery of right leg, two plates and screws. 2. Colonic surgeries. 3. Right hemicolectomy on April 04, 2013. 4. Right hepatectomy June 07, 2016. SOCIAL HISTORY The patient is . His spouse is disabled. She is a former smoker. She quit on November 29, 2010. Denies any smokeless tobacco. No abuse of alcohol or illicit drugs. FAMILY HISTORY Positive for prostate cancer, colon cancer, Alzheimer, Parkinsonism. Prostate cancer in her father and colon cancer in her father too. CURRENT MEDICATIONS 1. Oxycodone 5 mg q.4h. p.r.n. for pain. 2. Lasix 20 mg daily. 3. Zofran 8 mg q.8h. p.r.n. for nausea and vomiting. 4. Lexapro 20 mg daily. 5. Ativan 1 mg at bedtime for nausea. 6. Protonix 40 mg daily. ALLERGIES PENICILLIN. REVIEW OF SYSTEMS CONSTITUTIONAL: No appetite or weight change. No fever, chills or sweating. No recent infection. HEENT: Ears: No tinnitus or hearing problem. Nose: No nasal discharge or epistaxis. Throat: No sore throat or mouth ulcers. Eyes: No diplopia or visual changes. RESPIRATORY: Patient has cough with expectoration. CARDIOVASCULAR: No chest pain, orthopnea, or paroxysmal nocturnal dyspnea (PND) . No edema. No palpitations. GASTROINTESTINAL: Patient has alternating diarrhea and constipation. GENITOURINARY: No hematuria or dysuria. MUSCULOSKELETAL: No pain in the muscles, joints or bones. NEUROLOGICAL: She has tingling and numbness in the hands and feet from previous chemotherapy and Guillain-Alexander syndrome. HEMATOLOGIC/LYMPHATIC: No bleeding or easy bruising. She is weak, tired and fatigued. No enlarged lymph nodes. SKIN: No skin rash or lumps. PSYCHIATRIC: No anxiety or depression. PHYSICAL EXAMINATION GENERAL: Looks stable. Well-developed, well-nourished, and in no acute distress. VITAL SIGNS: Blood pressure 119/68, pulse 71 per minute, respirations 18 per minute, temperature 97.8, pulse ox 92% on room air. HEENT: Head: Atraumatic. No sinus tenderness to palpation. Eyes: No icterus or conjunctivitis. Mouth and Throat: No oral thrush or mucositis. NECK: Supple. No cervical or supraclavicular lymphadenopathy. LUNGS: Clear to auscultation and percussion bilaterally. HEART: Regular rate and rhythm. No gallops, murmurs, clicks or rubs. ABDOMEN: Soft and lax. No tenderness. No hepatosplenomegaly. No masses. EXTREMITIES: No cyanosis, clubbing or edema. LYMPHATICS: No peripheral lymphadenopathy. NEUROLOGICAL: She is conscious, alert and oriented times three. She is wheelchair bound because of her Guillain-Alexander syndrome. PSYCHIATRIC: Mood and affect appear normal. SKIN: No skin rash, bruise or purpuric eruption. DIAGNOSTIC DATA CBC showed white count 8.3, hemoglobin 14.5, hematocrit 42.3, platelets 200, 000. Chem panel is totally normal. CEA last visit was 6.4 which is up from 5.6. Her CEA this time is pending. ASSESSMENT 1. Recurrent metastatic colon cancer. Patient was initially diagnosed with stage III, and received 11 cycles of chemotherapy with FOLFOX, and on progression, she received FOLFIRI for four cycles. The first two cycles were full dose, and the last two cycles were 25% dose reduced because of severe reaction to FOLFIRI. Patient had partial hepatectomy for the metastatic lesion in the liver June 07, 2016. Tumor was 3.3 mucinous adenocarcinoma. KRAS and NRAS mutations came back negative, but BRAF mutation came back positive. Tumor was microsatellite instability high, and for this reason patient started treatment with Keytruda September 20, 2016. She is doing very well currently. Apart from having fatigue sometimes, patient does not have any other problem from the treatment. PET scan March 24, 2017 and the recent one on November 14, 2017, did not show any evidence of progression. The left external iliac lymph node showed less activity, and the SUV dropped from 9.6 to 5.7. Her tumor marker with CEA lately showed some rise. It increased from 5.6 to 6.4. I am planning to continue treatment with Keytruda today. I will see her in three weeks and I will check her PET scan next time to see if the patient is progressing or not. I will check also with her next visit in three weeks the CBC, chem panel, CEA, free T3, free T4 and TSH. 2. Right adrenal mass, stable by PET scan October 2016, February 2017, and October 2017. 3. Guillain-Alexander syndrome. Wheelchair bound. 4. Hepatic metastasis from colon cancer, status post resection, on Keytruda with stable disease. PLAN 1. Keytruda therapy today. 2. Patient to return in three weeks with CBC, chem panel, CEA, TSH, free T3, free T4 and PET CT scan. 3. Patient to contact us for any new concerns or complaints. MTDD
[~2018-02-13] VITALS: Ht 175.3 cm; Wt 102.6 kg
[~2018-02-13 08:06] MED LIST changes: +ALTEPLASE RECOMB 2 MG VIAL IVP PRN; +DEXTROSE 5%(*) 100 ML BAG 100 ML IVPB PRN; +GADOBENATE 529MG/1ML 15ML VIAL IVP ONE; +IBUP-136 PO; -IBUP200C71 PO; +NS(*) 0.9% 500 ML BAG 500 ML IV PRN; +PEMBROLIZUMAB 100 MG/4 ML SDV 200 MG in NS(*) 0.9% 50 ML BAG 50 ML IV ONE; -SPIR50TA31; +SPIR50TA33; +WATER FOR INJ,STERILE 20 ML IVP PRN
[2018-02-13 09:25] VITALS: BP 109/71
[2018-02-13] MEDS ORDERED: PEMBROLIZUMAB 100 MG/4 ML SDV 200 MG in NS(*) 0.9% 50 ML BAG 50 ML IV PRN (10:15)
[2018-02-13] MEDS ORDERED: FURO-45 PO (10:29)
[2018-02-13] MEDS ORDERED: MULT1CAP59 PO (10:29)
[2018-02-13] MEDS: HEPARIN FLSH (PORT) 500 UN/5ML IVP PRN (10:42)
[2018-02-13] MEDS: LIDOCAINE/SOD BICARB 8.4% SYR ID PRN (10:42)
--- NOTE | 2018-02-13 10:42 | Oncology Progress Note ---
History of Present Illness Evaluation Evaluation Date: Feb 13, 2018 Evaluation Time: 10:45 Primary Care Provider Primary Care Provider: Julio Cam MD Accompanied by Accompanied by: Self Last seen by : Matilde 01/23/2018 Chief Complaint Chief Complaint followup treatment with Keytruda for metastatic colon cancer Oncology History Oncology History The patient is a 72-year-old female with the following oncology history. 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 Biopsy of the right tube and ovary consistent with spindle stroma. - May 31, 2013 through November 11, 2013 The patient received eleven cycles of adjuvant FOLFOX chemotherapy received between May 31, 2013 through November 11, 2013 and treatment was stopped because of severe neuropathy. - Her colonoscopy on December 2014 was unremarkable. - On June 07, 2015, PET-CT scan showed postoperative changes of right hemicolectomy was 2.2 cm hypermetabolic left external iliac lymph node with non- FDG avid 1.8 cm low density lesion in the dome of the liver which was not previously seen with suspected cyst. There was an 8 mm mesenteric lymph node near the aortic bifurcation not significantly changed from prior exam. - On June 01, 2015 left iliac lymph node core biopsy was benign lymph node with reactive changes, negative for malignancy. - On August 11, 2015, CT scan showed enlarging 2.1 cm low density liver lesion with slight lobulated/irregular margins suggestive of cyst, but necrotic metastasis cannot be excluded. 8 mm right lobe liver lesion stable consistent with cyst. Stable left external iliac lymph node. 3.6 cm right adrenal adenoma. - On November 03, 2015 CT showed 2 cm hypodense liver lesion with indistinct margins in the right lobe at the dome, essentially unchanged. - On January 28, 2015, PET-CT scan showed previous right hemicolectomy, increase in the size of the lesion near the dome of the right hepatic lobe, now measuring 3.3 x 2.5 cm with borderline increased metabolic activity, consistent with metastasis. There was hypermetabolic left external iliac and mesenteric lymphadenopathy which was slightly more metabolically reactive than prior with stable 3.5 x 3.1 cm right adrenal gland mass with increased metabolic activity. The patient also during this period of time showed rising of her CEA. CT of chest, abdomen and pelvis done on May 06, 2016 identified changes of the previous right colectomy; pelvic lymph nodes are impaired when compared to January. Hypo-enhancing lesion in the dome of the liver is mildly increased. Right adrenal nodule is stable, likely benign. - June 07, 2016 CT-guided biopsy of the liver lesion led to the right hepatectomy done on June 07, 2016. Biopsy of the left lateral section cyst showed mild steatotic liver with denuded cyst, consistent with solitary bile duct cyst. Right hepatectomy came back positive for mucinous adenocarcinoma, 3.3 cm tumor, morphologically consistent with metastatic high-grade colon cancer in the liver. Margins were negative with background steatosis. KRAS and NRAS mutations came back negative, but BRAF mutation came back positive. Microsatellite instability testing came back high, so the patient could get benefit from checkpoint inhibitors. - September 20, 2016. patient started treatment with Keytruda given that her microsatellite instability was high on September 20, 2016. HPI HPI Mrs. Mary Horvath is 72-year-old woman who has metastatic colon cancer. Currently on treatment with keytruda. Patient is wheelchair bound, with minimal ambulation activity ( Guillain-Garita Syndrome since 2010). S/p eleven cycles of adjuvant FOLFOX chemotherapy received between May 31, 2013 through November 11, 2013 and treatment was stopped because of severe neuropathy. 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 patient seen and examined in the infusion room. reposts being in her usual state of health. besides some bowel pattern irregularities of periods of loose stools and minimal constipation, and residual neuropathy from previous FOLFOX treatment. Patient is AAOX4, hemodynamically stable and afebrile, denies any cardiac type chest pain, no abdominal pain, no fevers at home, no night sweats, no chills, no spontaneous bleeding. , no nausea , no dark stools .Oral intake appetite ok, patient has maintained baseline weight since initiating treatment, reports no PND, no dizziness, or headaches nor blurry vision. Significant PMH of recurrent metastatic colon cancer; Arthritis; Guillain-Garita Syndrome. Diagnostic Studies Result Diagram: 02/13/1815 02/13/1815 PMH Patient History: FH: Alzheimers disease MOTHER, , Age:93 FH: CHF (congestive heart failure) FATHER, , Age:79 FH: Parkinson's disease FATHER, , Age:79 FH: bipolar disorder CHILD FH: colon cancer FATHER, , Age:79 grandfather - maternal FH: hypertension FATHER, , Age:79 FH: prostate cancer FATHER, , Age:79 Mental disorder CHILD No significant family history CHILD TIAs FATHER, , Age:79 Social/Occupational History Social History: Social History This is a 72 Yr old White female, she is M and has [] Children Hx Smoking: Yes (SMOKED 40 YRS 1 PPD) Smoking Status: Former Smoker Exposure to Second Hand Smoke?: Yes Allergies & Medications Allergies: Coded Allergies: Penicillins (Verified Allergy, Severe, RASH, 06/29/16) Uncoded Allergies: BANDAIDS (Allergy, Unknown, 06/29/16) Home Meds Active Scripts Multivitamin (MULTIVITAMINS) 1 Each Capsule, 1 EACH PO 1-2XD for 7 Days, CAPSULE Prov:BROOKE MITTAL-C, ONC 02/13/18 Furosemide (FUROSEMIDE) 20 Mg Tablet, 1 TAB PO Q6H for 10 Days, TAB Prov:BROOKE MITTALP-C, ONC 02/13/18 Lorazepam (ATIVAN) 1 Mg Tablet, 1 MG PO HS for NAUSEA for 90 Days, #90 TAB 1 Refill Prov:MOHAMUD DEWITTP-BC, ONC 07/11/17 Ondansetron (ZOFRAN ODT) 8 Mg Tab.rapdis, 8 MG PO Q8H, #30 TAB Prov:MOHAMUD DEWITT-BC, ONC 05/09/17 Rivaroxaban 20 Mg (XARELTO 20 MG) 20 Mg Tablet, 20 MG PO DAILY for 30 Days, #30 TAB 6 Refills Prov:MOHAMUD DEWITT [employer]-BC, ONC 12/13/16 Reported Medications Fluoxetine Hcl (PROZAC) 40 Mg Capsule, 50 MG PO QDAY, #90 CAPSULE 3 Refills 01/03/17 Review of Systems Constitution: Positive for Appetite/Weight Change, Denies Fever/Chills/Sweating , Denies Recent Infection, Denies Other HEENT: No EARS: Tinnitus, No NOSE: Nasal Discharge, No THROAT: Sore Throat, No EYES: Dipolpia, No EARS: Hearing Problems, No NOSE: Epistaxis, No THROAT: Mouth Ulcers, No EYES: Vision Change, No OTHER Respiratory: No Cough, No Expectoration, No Hemoptysis, No Shortness of Breath , No OTHER Gastrointestinal: No Nausea, No Vomitting, Diarrehea, Constipation, No Heart Burn, No Swallowing Difficulties, No Abdominal Pain, No Other Gentiourinary: No Hematuria, No Dysuria, Nocturia, No Other Musculoskeletal: No Muscle Pain, Joint Pain, No Bone Pain, No Other Hematological: No Bleeding, No Weakness, No Enlarged Lyph Nodes, No Bruising, Fatigue, No Other Skin: No Skin Rash, No Lumps, No Erythema, No Dry Skin, No Moist Skin, No Other Psychiatric: Depression Vital Signs Vital Signs Temperature: 98.9 Pulse: 79 BP Systolic: 109 BP Diastolic: 71 Respiratory Rate: 16 O2 SAT: 90 O2 Delivery: Room Air Height (feet) 5 Height (inches) 69.00 Weight lb: 204 Weight oz: 6.0 Weight Kg (Domingo): [id number] Pain: 0 ECOG -3Capable of only limited self-care; confined to bed or chair >50% of waking hours. Physical Exam General: Looks Stable, Well Developed, Well Nourished HEENT: HEAD:Atraumatic Neck: No Supple, No Cervical Lymphadenopathy, No Subclavicular Lymphadopathy, No Thyromegaly, No Other Lungs: Clear to Auscultation, Percussion Bilaterally Heart: Regular Rate and Rhythm, No Gallops, No Murmurs, No Clicks, No Rubs, No Other Abdomen: Soft and Nontender Extremities: No Cyanosis, No Clubbing, No Edema, No Other Lymphatics: No Peripheral Lymphadenopathy, No Other Psychiatric: Mood appears normal, Affect appears normal Skin: No Skin Rashes, No Bruising, No Purpura, No Moist Desquamation, No Dry Desquamation, No Errythema, No Mild Errythema, No Moderate Errythema, No Severe Errythema, No Induration, No Other Breast: No No Masses, No No Nipple Discharge, No No Skin Changes, No Other Assessment and Plan Assessment and Plan Mrs. Mary Horvath is 72-year-old woman who has metastatic colon cancer. Currently on treatment with keytruda. Patient is wheelchair bound, with minimal ambulation activity ( Guillain-Garita Syndrome since 2010). S/p eleven cycles of adjuvant FOLFOX chemotherapy received between May 31, 2013 through November 11, 2013 and treatment was stopped because of severe neuropathy. 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 patient seen and examined in the infusion room. reposts being in her usual state of health. besides some bowel pattern irregularities of periods of loose stools and minimal constipation, and residual neuropathy from previous FOLFOX treatment. Patient is AAOX4, hemodynamically stable, no signs of infections, no recent hospitalizations and afebrile. DIAGNOSTIC DATA UNREMARKABLE, Reviewed on [facility]. CEA ON ON 01/02/2018 is 5.8 CEA on 01/23/2018 is 5.0 CEA on 02/13/18 pending. CHRONIC Well controlled 1. Recurrent metastatic colon cancer. 2. Arthritis. 3. Guillain-Garita Syndrome. 1. Recurrent metastatic colon cancer. Patient was initially diagnosed with stage III, and received 11 cycles of chemotherapy with FOLFOX, and on progression, she received FOLFIRI for four cycles. The first two cycles were full dose, and the last two cycles were 25% dose reduced because of severe reaction to FOLFIRI. Patient had partial hepatectomy for the metastatic lesion in the liver June 07, 2016. Tumor was 3.3 mucinous adenocarcinoma. KRAS and NRAS mutations came back negative, but BRAF mutation came back positive. Tumor was microsatellite instability high, and for this reason patient started treatment with Keytruda September 20, 2016. She is doing very well currently. Apart from having fatigue sometimes, patient does not have any other problem from the treatment. PET scan March 24, 2017 and the recent one on November 14, 2017, did not show any evidence of progression. The left external iliac lymph node showed less activity, and the SUV dropped from 9.6 to 5.7. Her tumor marker with CEA lately showed some rise. It increased from 5.6 to 6.4. I am planning to continue treatment with Keytruda today. I will see her in three weeks and I will check her PET scan next time to see if the patient is progressing or not. I will check also with her next visit in three weeks the CBC, chem panel, CEA, free T3, free T4 and TSH. 2. Right adrenal mass, stable by PET scan October 2016, February 2017, and October 2017. 3. Guillain-Garita syndrome. Wheelchair bound. walks occasionally with a walker, or one person assist. Recommend Pt, and bowel regimen. 4. Hepatic metastasis from colon cancer, status post resection, on Keytruda with stable disease. PLAN 1. Keytruda therapy today. 2. Patient to return in three weeks with CBC, chem panel, CEA, TSH, free T3, free T4 and PET CT scan due in February 2018. 3. Patient to contact us for any new concerns or complaints. 4. RTC PRN, contact center with any issues or concerns. -Education, patient instructed to go to ER immediately and or call Clinic if any Shortness of Breath, Temp >/=100.4, fevers, chills, cardiac type chest pain , bleeding, excessive bruising, headaches, blurry vision, dizziness, abdominal pain, difficulty swallowing, and pain unrelieved by medication. TIME SPENT: 20 minutes 15 > minutes includes but not limited to discussion, counselling and co-ordination~ of care. Discussion with other health care providers, record review, review of lab work, diagnostic tests. Plan discussed extensively with patient. All the questions answered today. Thank you for the opportunity to be involved in the care of Mary Horvath. Billing Level: Return visit 3 BROOKE MITTAL, ONC Feb 13, 2018 10:42
[2018-02-13] MEDS: NS(*) 0.9% 100 ML BAG 100 ML IVPB PRN (10:46)
[2018-02-13 11:41] VITALS: BP 120/78
== END 2018-02-25 ==
LOC: ONC 08:06
PROVIDERS: ATTEND Internal Medicine Hematology
DX: C18.9 Malignant neoplasm of colon, unspecified (principal); C78.7 Secondary malignant neoplasm of liver and intrahepatic bile duct; G93.9 Disorder of brain, unspecified; Z92.21 Personal history of antineoplastic chemotherapy; E27.8 Other specified disorders of adrenal gland; G62.0 Drug-induced polyneuropathy; R51 Headache; Z87.891 Personal history of nicotine dependence; Z79.899 Other long term (current) drug therapy; R53.1 Weakness; R53.83 Other fatigue; R05 Cough
CPT/HCPCS: 70553; 82378; 83735; 84439; 84443; 84480; 85027; 96365; 96413; A9577; J1642; J7040; J7050; J9271; 82040; 82247; 82310; 82374; 82435; 82565; 82947; 84075; 84132; 84155; 84295; 84450; 84460; 84520

== ENCOUNTER 2018-06-05 08:03 | Outpatient (RCR) | payer MEDICARE, BC ==
[2016-06-29 12:32] VITALS: Ht 175.3 cm; Wt 97.2 kg
[2018-03-13 09:22] VITALS: BP 112/84
[2018-03-13] MEDS: HEPARIN FLSH (PORT) 500 UN/5ML IVP PRN (10:18)
[2018-03-13 10:25] VITALS: BP 130/74
--- NOTE | 2018-03-13 11:23 | [facility] ONCOLOGY NOTE ---
EVENT DATE: March 13, 2018 DIAGNOSES 1. Metastatic colon cancer. 2. Guillain-Elton syndrome. CHIEF COMPLAINT Patient is here today for followup of her metastatic colon cancer, on treatment with Keytruda. ONCOLOGY HISTORY The patient is a 72-year-old female with the following oncology history. 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 Biopsy of the right tube and ovary consistent with spindle stroma. 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 Her colonoscopy on December 2014 was unremarkable. On June 07, 2015, PET-CT scan showed postoperative changes of right hemicolectomy was 2.2 cm hypermetabolic left external iliac lymph node with non-FDG avid 1.8 cm low density lesion in the dome of the liver which was not previously seen with suspected cyst. There was an 8 mm mesenteric lymph node near the aortic bifurcation not significantly changed from prior exam. On June 01, 2015 left iliac lymph node core biopsy was benign lymph node with reactive changes, negative for malignancy. On August 11, 2015, CT scan showed enlarging 2.1 cm low density liver lesion with slight lobulated/irregular margins suggestive of cyst, but necrotic metastasis cannot be excluded. 8 mm right lobe liver lesion stable consistent with cyst. Stable left external iliac lymph node. 3.6 cm right adrenal adenoma. On November 03, 2015 CT showed 2 cm hypodense liver lesion with indistinct margins in the right lobe at the dome, essentially unchanged. On January 28, 2015, PET-CT scan showed previous right hemicolectomy, increase in the size of the lesion near the dome of the right hepatic lobe, now measuring 3.3 x 2.5 cm with borderline increased metabolic activity, consistent with metastasis. There was hypermetabolic left external iliac and mesenteric lymphadenopathy which was slightly more metabolically reactive than prior with stable 3.5 x 3.1 cm right adrenal gland mass with increased metabolic activity. The patient also during this period of time showed rising of her CEA. CT of chest, abdomen and pelvis done on May 06, 2016 identified changes of the previous right colectomy; pelvic lymph nodes are impaired when compared to January. Hypo-enhancing lesion in the dome of the liver is mildly increased. Right adrenal nodule is stable, likely benign. CT- guided biopsy of the liver lesion led to the right hepatectomy done on June 07, 2016. Biopsy of the left lateral section cyst showed mild steatotic liver with denuded cyst, consistent with solitary bile duct cyst. Right hepatectomy came back positive for mucinous adenocarcinoma, 3.3 cm tumor, morphologically consistent with metastatic high-grade colon cancer in the liver. Margins were negative with background steatosis. KRAS and NRAS mutations came back negative, but BRAF mutation came back positive. Microsatellite instability testing came back high, so the patient could get benefit from checkpoint inhibitors. The patient started treatment with Keytruda given that her microsatellite instability was high on September 20, 2016. HISTORY OF PRESENT ILLNESS Patient is here today for followup of her metastatic colon cancer, on treatment with Keytruda. She is doing fine currently. Her general condition is very, very well. She is complaining of alternating diarrhea and constipation. She continues to have neuropathy in her hands and feet from previous chemotherapy. She has occasional headache. She has some itching after the infusion but other than that she is really doing very well. PAST MEDICAL HISTORY 1. Recurrent metastatic colon cancer. 2. Arthritis. 3. Guillain-Elton Syndrome. PAST SURGICAL HISTORY 1. Fracture surgery of right leg, two plates and screws. 2. Colonic surgeries. 3. Right hemicolectomy on April 04, 2013. 4. Right hepatectomy June 07, 2016. SOCIAL HISTORY The patient is . His spouse is disabled. She is a former smoker. She quit on November 29, 2010. Denies any smokeless tobacco. No abuse of alcohol or illicit drugs. FAMILY HISTORY Positive for prostate cancer, colon cancer, Alzheimer, Parkinsonism. Prostate cancer in her father and colon cancer in her father too. CURRENT MEDICATIONS 1. Oxycodone 5 mg q.4h. p.r.n. for pain. 2. Lasix 20 mg daily. 3. Zofran 8 mg q.8h. p.r.n. for nausea and vomiting. 4. Lexapro 20 mg daily. 5. Ativan 1 mg at bedtime for nausea. 6. Protonix 40 mg daily. ALLERGIES PENICILLIN. REVIEW OF SYSTEMS CONSTITUTIONAL: No appetite or weight change. No fever, chills or sweating. No recent infection. HEENT: Ears: No tinnitus or hearing problem. Nose: No nasal discharge or epistaxis. Throat: No sore throat or mouth ulcers. Eyes: No diplopia or visual changes. RESPIRATORY: Patient has cough with expectoration. CARDIOVASCULAR: No chest pain, orthopnea, or paroxysmal nocturnal dyspnea (PND). No edema. No palpitations. GASTROINTESTINAL: She has alternating diarrhea and constipation. GENITOURINARY: No hematuria or dysuria. MUSCULOSKELETAL: No pain in the muscles, joints or bones. NEUROLOGICAL: She has tingling and numbness in the hands and feet. She has also occasional headache. HEMATOLOGIC/LYMPHATIC: No bleeding or easy bruising. She is weak, tired and fatigued. No enlarged lymph nodes. SKIN: She has itching after her infusion. PSYCHIATRIC: No anxiety or depression. PHYSICAL EXAMINATION GENERAL: Looks stable. Well-developed, well-nourished, and in no acute distress. VITAL SIGNS: Blood pressure 112/84, pulse 77 per minute, respirations 16 per minute, temperature 97.8, pulse ox 91% on room air. HEENT: Head: Atraumatic. No sinus tenderness to palpation. Eyes: No icterus or conjunctivitis. Mouth and Throat: No oral thrush or mucositis. NECK: Supple. No cervical or supraclavicular lymphadenopathy. LUNGS: Clear to auscultation and percussion bilaterally. HEART: Regular rate and rhythm. No gallops, murmurs, clicks or rubs. ABDOMEN: Soft and lax. No tenderness. No hepatosplenomegaly. No masses. EXTREMITIES: No cyanosis, clubbing or edema. LYMPHATICS: No peripheral lymphadenopathy. NEUROLOGICAL: She is conscious, alert and oriented times three. She is wheelchair bound because of her Guillain-Elton syndrome. PSYCHIATRIC: Mood and affect appear normal. SKIN: No skin rash, bruise or purpuric eruption. DIAGNOSTIC DATA Last CEA was 6.4, up from 5.8, which was down from 6.4 so she has fluctuation of her CEA but within a reasonable and narrow range. ASSESSMENT 1. Recurrent metastatic colon cancer. Patient was initially diagnosed with stage III and received 11 cycles of chemotherapy with FOLFOX, and on progression she received FOLFIRI for four cycles. The first two cycles were full dose and the last two cycles were 25% dose reduced because of the severe reaction to FOLFIRI. Patient had partial hepatectomy for the metastatic lesion in the liver June 07, 2016. Tumor was 3.3 mucinous adenocarcinoma. KRAS and NRAS mutations came back negative but BRAF mutation came back positive. Tumor was microsatellite instability high and for this reason patient she started treatment with Keytruda September 20, 2016. She did very well with that treatment. Her general condition much improved. Her PET scans March 24, 2017 and November 14, 2017 did not show any evidence of progression. The left external iliac lymph node showed less activity and the SUV dropped from 9.6 to 5.7. Her tumor marker with CEA showed some fluctuation between 5 and 6. I am planning to proceed with her Keytruda therapy today. I will see her again in three weeks with CBC, chem panel, CEA, TSH, free T4 and free T3. 2. Right adrenal mass, stable by PET scan done October 2016, February 2017 and October 2017. 3. Guillain-Elton syndrome, wheelchair bound. 4. Hepatic metastasis from colon cancer, status post resection, on Keytruda with stable disease. PLAN 1. Keytruda therapy today. 2. Patient to return in three weeks with CBC, chem panel, CEA, TSH, free T3, free T4. 3. Patient to contact us for any new concerns or complaints. RODRIGUED
[2018-04-03 08:19] VITALS: BP 127/83
[2018-04-03] MEDS: NS(*) 0.9% 500 ML BAG 500 ML IV PRN (09:20)
[2018-04-03] MEDS: LIDOCAINE/SOD BICARB 8.4% SYR ID PRN (09:20)
[2018-04-03] MEDS: HEPARIN FLSH (PORT) 500 UN/5ML IVP PRN (09:20)
[2018-04-03 09:49] VITALS: BP 129/73
[2018-04-24 08:59] VITALS: BP 124/83
[2018-04-24] MEDS: LIDOCAINE/SOD BICARB 8.4% SYR ID PRN (09:13)
[2018-04-24] MEDS: NS(*) 0.9% 500 ML BAG 500 ML IV PRN (09:13)
[2018-04-24] MEDS: PEMBROLIZUMAB 100 MG/4 ML SDV 200 MG in NS(*) 0.9% 50 ML BAG 50 ML IV PRN (10:49)
[2018-04-24] MEDS: HEPARIN FLSH (PORT) 500 UN/5ML IVP PRN (11:18)
--- NOTE | 2018-04-24 18:18 | ONCOLOGY FOLLOW UP NOTE ---
EVENT DATE: April 24, 2018 CHIEF COMPLAINT "I'm doing really well." HISTORY OF PRESENT ILLNESS Patient is a 72-year-old female who was being seen today for continued treatment with Keytruda for recurrent metastatic colon cancer. Overall, she feels very well. She does have some fatigue, but is able to control this with occasional naps during the day. She has had long-standing issues with alternating constipation and diarrhea, but is able to control the diarrhea with Imodium. She does have neuropathy from previous treatment and loss of balance due to Guillain-Norwell, but again, is managing well. TREATMENT HISTORY Patient was initially diagnosed with stage III colon cancer and received 11 cycles of FOLFOX. On progression, she received FOLFIRI for four cycles with the last two cycles dose reduced because of intolerability. She underwent partial hepatectomy for a metastatic lesion in the liver in May 2016. KRAS and NRAS were negative, but BRAF mutation positive. Tumor was MSI high, and for this reason, she was started on Keytruda on September 20, 2016. She continues on Keytruda at this time. MEDICAL HISTORY 1. Recurrent metastatic colon cancer. 2. Arthritis. 3. Guillain-Norwell syndrome 2010. SURGICAL HISTORY 1. Fracture surgery of the right leg, two plates and screws. 2. Colon surgeries. 3. Right hemicolectomy 04/04/13. 4. Right hepatectomy June 07, 2016. 5. Left lower extremity DVT 2015. FAMILY HISTORY Positive for prostate cancer, colon cancer, Alzheimer's, parkinsonism, and both prostate and colon cancer in her father. SOCIAL HISTORY Patient is . She has two grown sons who live in the area. She is retired. She is a former smoker and quit in November 2010. She does not drink alcohol or use illicit drugs. MEDICATIONS 1. Oxycodone 5 mg q.4 hours p.r.n. pain. 2. Lasix 20 mg daily p.r.n. 3. Zofran p.r.n. 4. Lexapro 20 mg daily. 5. Ativan 1 mg at bedtime p.r.n. 6. Xarelto. ALLERGIES PENICILLIN. REVIEW OF SYSTEMS A 12-point review of systems is performed and is negative except as stated above. PHYSICAL EXAMINATION VITAL SIGNS: Weight 97.2 kg, BP 124/83, P 88, R 16, temp 97.7, O2 sat 90%. GENERAL: Patient is a well-developed, well-nourished female in no acute distress. HEAD: Normocephalic, atraumatic. EYES: Sclerae anicteric. MOUTH: Moist mucous membranes without lesions. LUNGS: Clear bilaterally. CARDIOVASCULAR: Heart rate regular, 88 per minute, without murmur, S3, or S4. ABDOMEN: Soft with mild right upper quadrant tenderness. Active bowel sounds. No organomegaly. Exam limited by body habitus. EXTREMITIES: No edema. NEUROLOGIC: Ongoing balance issues from Guillain-Norwell. SKIN: No rash or bruising. LABORATORY CBC today reveals a WBC of 7.7, hemoglobin 15.7, hematocrit 46.5, platelets 204,000. CMP was within normal limits. Previous TSH 2.91, T4 of 1.21, T3 of 109 per labs done on 04/03/18. CEA on 04/03/18 was 5.6. ASSESSMENT 1. Recurrent metastatic colon cancer. Patient initially treated with FOLFOX for stage III colon cancer. On progression, she received FOLFIRI for four cycles. She underwent partial hepatectomy for a metastatic lesion in the liver in May 2016. KRAS and NRAS negative, but BRAF positive with microsatellite instability high. Began Keytruda on 09/20/16. CEA fluctuates between 5 and 6, but stable. 2. Guillain-Norwell syndrome. Continues for the most part wheelchair bound. 3. Peripheral neuropathy. She attributes the neuropathy in her feet to both Guillain-Norwell and previous FOLFOX. She does have some mild neuropathy in her hands interfering with some fine motor tasks. PLAN 1. Cycle #28 Keytruda today. She continues to tolerate this well. General sense of well-being is good. 2. Flu vaccine. Unable to receive due to Guillain-Norwell . 3. Follow up with Dr. Amezquita on 05/15/18 for cycle #29. Labs will be drawn at that time. MTDD
[2018-05-15 08:08] VITALS: BP 125/81
[2018-05-15] MEDS: LIDOCAINE/SOD BICARB 8.4% SYR ID PRN (08:13)
[2018-05-15] MEDS: NS(*) 0.9% 500 ML BAG 500 ML IV PRN (08:13)
[2018-05-15] MEDS: HEPARIN FLSH (PORT) 500 UN/5ML IVP PRN (09:18)
--- NOTE | 2018-05-15 22:55 | ONCOLOGY FOLLOW UP NOTE ---
EVENT DATE: May 15, 2018 DIAGNOSES 1. Metastatic colon cancer. 2. Guillain-Jupiter syndrome. CHIEF COMPLAINT Patient is here today for followup of her metastatic colon cancer, on treatment with Keytruda. ONCOLOGY HISTORY The patient is a 72-year-old female with the following oncology history. 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 Biopsy of the right tube and ovary consistent with spindle stroma. The patient received 11 cycles of adjuvant FOLFOX chemotherapy, received between May 31, 2013, through November 11, 2013, and treatment was stopped because of severe neuropathy. Her colonoscopy in December 2014 was unremarkable. On June 07, 2015, PET/CT scan showed postoperative changes of right hemicolectomy with 2.2 cm hypermetabolic left external iliac lymph node with [id number] 1.8 cm low-density lesion in the dome of the liver which was not previously seen, with suspected cyst. There was an 8 mm mesenteric lymph node near the aortic bifurcation, not significantly changed from prior exam. On June 01, 2015, left iliac lymph node core biopsy was benign lymph node with reactive changes, negative for malignancy. On August 11, 2015, CT scan showed enlarging 2.1 cm, low-density liver lesion with slight lobulated/irregular margins suggestive of cyst, but necrotic metastasis cannot be excluded. An 8 mm right lobe liver lesion was stable, consistent with cyst, stable left external iliac lymph node, and 3.6 cm right adrenal adenoma. On November 03, 2015, CT showed 2 cm, hypodense liver lesion with indistinct margins in the right lobe at the dome, essentially unchanged. On January 28, 2015, PET/CT scan showed previous right hemicolectomy, increase in the size of the lesion near the dome of the right hepatic lobe, now measuring 3.3 x 2.5 cm, with borderline increased metabolic activity, consistent with metastasis. There was hypermetabolic left external iliac and mesenteric lymphadenopathy which was slightly more metabolically reactive than prior with stable 3.5 x 3.1 cm right adrenal gland mass with increased metabolic activity. The patient also during this period of time showed rising of her CEA. CT of chest, abdomen, and pelvis done on May 06, 2016, identified changes of the previous right colectomy. Pelvic lymph nodes are impaired when compared to January. Hypo-enhancing lesion in the dome of the liver is mildly increased. Right adrenal nodule is stable, likely benign. CT-guided biopsy of the liver lesion led to the right hepatectomy done on June 07, 2016. Biopsy of the left lateral section cyst showed mild steatotic liver with denuded cyst, consistent with solitary bile duct cyst. Right hepatectomy came back positive for mucinous adenocarcinoma, 3.3 cm tumor, morphologically consistent with metastatic high-grade colon cancer in the liver. Margins were negative with background steatosis. KRAS and NRAS mutations came back negative, but BRAF mutation came back positive. Microsatellite instability testing came back high, so the patient could get benefit from checkpoint inhibitors. The patient started treatment with Keytruda given that her microsatellite instability was high on September 20, 2016. HISTORY OF PRESENT ILLNESS Patient is here today for followup of her metastatic colon cancer, on treatment with Keytruda. She is doing very well currently. She has alternating diarrhea and constipation, and she has tingling and numbness in her hands and feet from neuropathy, but those are chronic and stable. Other than that, she is doing really very well, and her general condition is very good. PAST MEDICAL HISTORY 1. Recurrent metastatic colon cancer. 2. Arthritis. 3. Guillain-Jupiter syndrome. PAST SURGICAL HISTORY 1. Fracture surgery of right leg, two plates and screws. 2. Colonic surgeries. 3. Right hemicolectomy on April 04, 2013. 4. Right hepatectomy June 07, 2016. SOCIAL HISTORY The patient is . Her spouse is disabled. She is a former smoker. She quit on November 29, 2010. Denies any smokeless tobacco. No abuse of alcohol or illicit drugs. FAMILY HISTORY Positive for prostate cancer, colon cancer, Alzheimer, parkinsonism. Prostate cancer in her father and colon cancer in her father, too. CURRENT MEDICATIONS 1. Oxycodone 5 mg q.4 hours p.r.n. for pain. 2. Lasix 20 mg daily. 3. Zofran 8 mg q.8 hours p.r.n. for nausea and vomiting. 4. Lexapro 20 mg daily. 5. Ativan 1 mg at bedtime for nausea. 6. Protonix 40 mg daily. ALLERGIES PENICILLIN. REVIEW OF SYSTEMS CONSTITUTIONAL: No appetite or weight change. No fever, chills, or sweating. No recent infection. HEENT: Ears: No tinnitus or hearing problem. Nose: No nasal discharge or epistaxis. Throat: No sore throat or mouth ulcers. Eyes: No diplopia or visual changes. RESPIRATORY: No shortness of breath. No cough, expectoration, or hemoptysis. CARDIOVASCULAR: No chest pain, orthopnea, or paroxysmal nocturnal dyspnea (PND). No edema. No palpitations. GASTROINTESTINAL: No nausea or vomiting. She has alternating diarrhea and constipation. No change in bowel movements. No heartburn or swallowing difficulties. No abdominal pain. No jaundice. No hematemesis, melena, or rectal bleeding. GENITOURINARY: No hematuria or dysuria. MUSCULOSKELETAL: No pain in the muscles, joints, or bones. NEUROLOGICAL: She has tingling and numbness in her hands and feet. No headaches or convulsions. HEMATOLOGIC/LYMPHATIC: No bleeding or easy bruising. No weakness or fatigue. No enlarged lymph nodes. SKIN: No skin rash or lumps. PSYCHIATRIC: No anxiety or depression. PHYSICAL EXAMINATION GENERAL: Looks stable. Well developed, well nourished, and in no acute distress. VITAL SIGNS: Blood pressure 125/81, pulse 75 per minute, respirations 16 per minute, temperature 98, pulse ox 93% on room air. HEENT: Head: Atraumatic. No sinus tenderness to palpation. Eyes: No icterus or conjunctivitis. Mouth and Throat: No oral thrush or mucositis. NECK: Supple. No cervical or supraclavicular lymphadenopathy. LUNGS: Clear to auscultation and percussion bilaterally. HEART: Regular rate and rhythm. No gallops, murmurs, clicks, or rubs. ABDOMEN: Soft and lax. No tenderness. No hepatosplenomegaly. No masses. EXTREMITIES: No cyanosis, clubbing, or edema. LYMPHATICS: No peripheral lymphadenopathy. NEUROLOGICAL: She is conscious, alert, and oriented times three. She is wheelchair bound because of the Guillain-Jupiter syndrome. PSYCHIATRIC: Mood and affect appear normal. SKIN: No skin rash, bruise, or purpuric eruption. DIAGNOSTIC DATA CBC showed white count 8.2, hemoglobin 14.6, hematocrit 43.4, platelets 209,000. Free T4 is 1.17, total T3 of 141, TSH 2.19. Chem panel is totally normal. CEA is 1.7, which is down from 5.6. ASSESSMENT 1. Recurrent metastatic colon cancer. Patient was initially diagnosed with stage III and received 11 cycles of chemotherapy with FOLFOX, and on progression, she received FOLFIRI for four cycles. The first two cycles were full dose, and the last two cycles were 25% dose reduced because of severe reaction to FOLFIRI. Patient had partial hepatectomy for the metastatic lesion in the liver June 07, 2016. Tumor was 3.3 mucinous adenocarcinoma. KRAS and NRAS mutations came back negative, but BRAF mutation came back positive. Tumor was microsatellite instability high, and for this reason, patient started treatment with Keytruda September 20, 2016. She is doing very well with her treatment. Her PET scans March 24, 2017, and November 14, 2017, did not show any evidence of progression. The left external iliac lymph node showed less activity, and the SUV dropped from 9.6 to 5.7. 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 I am planning to proceed with her Keytruda therapy today. I will see her again in three weeks with CBC, chemistry panel, CEA, TSH, free T4, and free T3. 2. Right adrenal mass, stable by PET scans October 2016, February 2017, and October 2017. 3. Guillain-Jupiter syndrome, wheelchair bound. 4. Hepatic metastasis from colon cancer, status post resection, on Keytruda with stable disease. PLAN 1. Keytruda therapy today. 2. Patient to return in three weeks with CBC, chem panel, CEA, TSH, free T3, free T4. 3. Patient to contact us for any new concern or complaints. MTDD
[~2018-06-05] VITALS: Ht 175.3 cm; Wt 97.2 kg
[~2018-06-05 08:03] MED LIST changes: -GADOBENATE 529MG/1ML 15ML VIAL IVP ONE; +MULT1CAP59 PO; +NS(*) 0.9% 100 ML BAG 100 ML IVPB PRN; -NS(*) 0.9% 500 ML BAG 500 ML IV PRN
[2018-06-05 08:14] VITALS: BP 140/75
[2018-06-05] MEDS: LIDOCAINE/SOD BICARB 8.4% SYR ID PRN (08:19)
[2018-06-05] MEDS: NS(*) 0.9% 500 ML BAG 500 ML IV PRN (08:19)
[2018-06-05] MEDS: HEPARIN FLSH (PORT) 500 UN/5ML IVP PRN (08:20)
[2018-06-05] MEDS: PEMBROLIZUMAB 100 MG/4 ML SDV 200 MG in NS(*) 0.9% 50 ML BAG 50 ML IV PRN (09:09)
--- NOTE | 2018-06-06 08:45 | [facility] ONCOLOGY NOTE ---
EVENT DATE: June 05, 2018 DIAGNOSES 1. Metastatic colon cancer. 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 CHIEF COMPLAINT Patient is here today for followup of her metastatic colon cancer, on treatment with Keytruda. ONCOLOGY HISTORY The patient is a 72-year-old female with the following oncology history. 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 Biopsy of the right tube and ovary consistent with spindle stroma. The patient received 11 cycles of adjuvant FOLFOX chemotherapy, received between May 31, 2013, through November 11, 2013, and treatment was stopped because of severe neuropathy. Her colonoscopy in December 2014 was unremarkable. On June 07, 2015, PET/CT scan showed postoperative changes of right hemicolectomy with 2.2 cm hypermetabolic left external iliac lymph node with [id number] 1.8 cm low-density lesion in the dome of the liver which was not previously seen, with suspected cyst. There was an 8 mm mesenteric lymph node near the aortic bifurcation, not significantly changed from prior exam. On June 01, 2015, left iliac lymph node core biopsy was benign lymph node with reactive changes, negative for malignancy. On August 11, 2015, CT scan showed enlarging 2.1 cm, low-density liver lesion with slight lobulated/irregular margins suggestive of cyst, but necrotic metastasis cannot be excluded. An 8 mm right lobe liver lesion was stable, consistent with cyst, stable left external iliac lymph node, and 3.6 cm right adrenal adenoma. On November 03, 2015, CT showed 2 cm, hypodense liver lesion with indistinct margins in the right lobe at the dome, essentially unchanged. On January 28, 2015, PET/CT scan showed previous right hemicolectomy, increase in the size of the lesion near the dome of the right hepatic lobe, now measuring 3.3 x 2.5 cm, with borderline increased metabolic activity, consistent with metastasis. There was hypermetabolic left external iliac and mesenteric lymphadenopathy which was slightly more metabolically reactive than prior with stable 3.5 x 3.1 cm right adrenal gland mass with increased metabolic activity. The patient also during this period of time showed rising of her CEA. CT of chest, abdomen, and pelvis done on May 06, 2016, identified changes of the previous right colectomy. Pelvic lymph nodes are impaired when compared to January. Hypo-enhancing lesion in the dome of the liver is mildly increased. Right adrenal nodule is stable, likely benign. CT-guided biopsy of the liver lesion led to the right hepatectomy done on June 07, 2016. Biopsy of the left lateral section cyst showed mild steatotic liver with denuded cyst, consistent with solitary bile duct cyst. Right hepatectomy came back positive for mucinous adenocarcinoma, 3.3 cm tumor, morphologically consistent with metastatic high-grade colon cancer in the liver. Margins were negative with background steatosis. KRAS and NRAS mutations came back negative, but BRAF mutation came back positive. Microsatellite instability testing came back high, so the patient could get benefit from checkpoint inhibitors. The patient started treatment with Keytruda given that her microsatellite instability was high on September 20, 2016. HISTORY OF PRESENT ILLNESS Patient is here today for followup of her metastatic colon cancer, on treatment with Keytruda. She is doing fine currently and she is tolerating treatment very well. Her general condition is stable. She received 29 cycles of Keytruda. Her last one was on May 15, 2018. She is complaining of alternating diarrhea and constipation. 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 She is wheelchair bound. She can walk with a cane and support for a few distance. Other than that, she is really doing very well. PAST MEDICAL HISTORY 1. Recurrent metastatic colon cancer. 2. Arthritis. 3. Guillain-[place] syndrome. PAST SURGICAL HISTORY 1. Fracture surgery of right leg, two plates and screws. 2. Colonic surgeries. 3. Right hemicolectomy on April 04, 2013. 4. Right hepatectomy June 07, 2016. SOCIAL HISTORY The patient is . Her spouse is disabled. She is a former smoker. She quit on November 29, 2010. Denies any smokeless tobacco. No abuse of alcohol or illicit drugs. FAMILY HISTORY Positive for prostate cancer, colon cancer, Alzheimer, parkinsonism. Prostate cancer in her father and colon cancer in her father, too. CURRENT MEDICATIONS 1. Oxycodone 5 mg q.4 hours p.r.n. for pain. 2. Lasix 20 mg daily. 3. Zofran 8 mg q.8 hours p.r.n. for nausea and vomiting. 4. Lexapro 20 mg daily. 5. Ativan 1 mg at bedtime for nausea. 6. Protonix 40 mg daily. ALLERGIES PENICILLIN. REVIEW OF SYSTEMS CONSTITUTIONAL: No appetite or weight change. No fever, chills, or sweating. No recent infection. HEENT: Ears: No tinnitus or hearing problem. Nose: No nasal discharge or epistaxis. Throat: No sore throat or mouth ulcers. Eyes: No diplopia or visual changes. RESPIRATORY: No shortness of breath. No cough, expectoration, or hemoptysis. CARDIOVASCULAR: No chest pain, orthopnea, or paroxysmal nocturnal dyspnea (PND). No edema. No palpitations. GASTROINTESTINAL: She has alternating diarrhea and constipation. GENITOURINARY: No hematuria or dysuria. MUSCULOSKELETAL: No pain in the muscles, joints, or bones. NEUROLOGICAL: She has neuropathy in her hands and feet from previous chemotherapy and Guillain-[place] syndrome. HEMATOLOGIC/LYMPHATIC: No bleeding or easy bruising. No weakness or fatigue. No enlarged lymph nodes. SKIN: No skin rash or lumps. PSYCHIATRIC: No anxiety or depression. PHYSICAL EXAMINATION GENERAL: Looks stable. Well developed, well nourished, and in no acute distress. VITAL SIGNS: Blood pressure 140/75, pulse 69 per minute, respirations 16 per minute, temperature 97.4, pulse ox 90% on room air. HEENT: Head: Atraumatic. No sinus tenderness to palpation. Eyes: No icterus or conjunctivitis. Mouth and Throat: No oral thrush or mucositis. NECK: Supple. No cervical or supraclavicular lymphadenopathy. LUNGS: Clear to auscultation and percussion bilaterally. HEART: Regular rate and rhythm. No gallops, murmurs, clicks, or rubs. ABDOMEN: Soft and lax. No tenderness. No hepatosplenomegaly. No masses. EXTREMITIES: No cyanosis, clubbing, or edema. LYMPHATICS: No peripheral lymphadenopathy. NEUROLOGICAL: She is conscious, alert, and oriented x3. She is wheelchair bound because of the Guillain-[place] syndrome. PSYCHIATRIC: Mood and affect appear normal. SKIN: No skin rash, bruise, or purpuric eruption. DIAGNOSTIC DATA CBC showed white count 6.8, hemoglobin 15.3, hematocrit 45.5, platelets 216,000. Chem panel is totally normal except chloride 108. Last CEA is 5 and current CEA is pending. ASSESSMENT 1. Recurrent metastatic colon cancer. Patient was initially diagnosed with stage III colon cancer and received 11 cycles of chemotherapy with FOLFOX and on progression she received FOLFIRI for four cycles. The first two cycles were full dose and the last two cycles were 25% dose reduced because of severe reaction to FOLFIRI. Patient had partial hepatectomy for the metastatic lesion in the liver June 07, 2016. Tumor was 3.3 mucinous adenocarcinoma. KRAS and NRAS mutations came back negative but BRAF mutation came back positive. Tumor was microsatellite instability high and for this reason patient started treatment with Keytruda September 20, 2016. She is doing very well with her treatment. Her PET scans March 24, 2017 and November 14, 2017 did not show any evidence of progression. The left external iliac lymph node showed less activity and the SUV dropped from 9.6 to 5.7. 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 Her marker for today is pending. I am planning to proceed with her Keytruda today, which will be cycle #30. I will see her again in three weeks with CBC, chemistry panel, CEA, TSH, free T4, and free T3. 2. Right adrenal mass, stable by PET scans October 2016, February 2017, and October 2017. 3. Guillain-[place] syndrome, wheelchair bound. 4. Hepatic metastasis from colon cancer, status post resection, on Keytruda with stable disease. PLAN 1. Keytruda therapy today. This will be cycle #30. 2. Patient to return in three weeks with CBC, chem panel, CEA, TSH, free T3 and free T4. 3. Patient to contact us for any new concern or complaints. MTDD
== END 2018-06-10 ==
LOC: ONC 08:03
PROVIDERS: ATTEND Internal Medicine Hematology
DX: Z51.11 Encounter for antineoplastic chemotherapy (principal); C18.9 Malignant neoplasm of colon, unspecified; C78.7 Secondary malignant neoplasm of liver and intrahepatic bile duct; G93.9 Disorder of brain, unspecified; Z92.21 Personal history of antineoplastic chemotherapy; E27.8 Other specified disorders of adrenal gland; G62.0 Drug-induced polyneuropathy; Z87.891 Personal history of nicotine dependence; Z79.899 Other long term (current) drug therapy; R53.1 Weakness; R53.83 Other fatigue; R05 Cough
CPT/HCPCS: 82378; 83735; 84439; 84443; 84480; 84481; 85027; 96365; 96413; J1642; J7040; J7050; J9271; 82040; 82247; 82310; 82374; 82435; 82565; 82947; 84075; 84132; 84155; 84295; 84450; 84460; 84520

== ENCOUNTER → 2018-08-21 | Day surgery (SDC) | payer MEDICARE, BC ==
[2016-06-29 12:32] VITALS: Ht 175.3 cm; Wt 99.8 kg
[~2018-08-21] VITALS: Ht 175.3 cm; Wt 99.8 kg
[~2018-08-21] MED LIST changes: -ALTEPLASE RECOMB 2 MG VIAL IVP PRN; -DEXTROSE 5%(*) 100 ML BAG 100 ML IVPB PRN; +GABA-549 PO; +LIDOCAINE/SOD BICARB 8.4% SYR ID ONE; +NORMOSOL R SOLN(*) 1000 ML BAG 1,000 ML IV PRN; -NS(*) 0.9% 100 ML BAG 100 ML IVPB PRN; -PEMBROLIZUMAB 100 MG/4 ML SDV 200 MG in NS(*) 0.9% 50 ML BAG 50 ML IV ONE; +PROPOFOL EMUL(*) 10MG/ML 20 ML 20 ML ONE; +VIT1CAPS34 PO; +VITA1CAP46 PO; -WATER FOR INJ,STERILE 20 ML IVP PRN; +ZOLP-1 PO
[2018-08-21 08:58] VITALS: BP 113/78
[2018-08-21 10:40] VITALS: BP 94/68
[2018-08-21 10:45] VITALS: BP 91/71
--- NOTE | 2018-08-21 10:54 | Short(Outpt) Discharge Summary ---
Discharge Summary Reason for Hosp/Final Diag: (1) History of colon cancer Status: Acute Hospital Course & Plan: Colonoscopy with biopsies and polypectomy x6 completed without problems. Departure Discharge to: Home, Self Care Discharge Instructions Home Meds Active Scripts Multivitamin (MULTIVITAMINS) 1 Each Capsule, 1 EACH PO 1-2XD for 7 Days, CAPSULE Prov:BROOKE MITTAL VP TRAINING-C, ONC 02/13/18 Ondansetron (ZOFRAN ODT) 8 Mg Tab.rapdis, 8 MG PO Q8H, #30 TAB Prov:MOHAMUD DEWITT VP TRAINING-BC, ONC 05/09/17 Rivaroxaban 20 Mg (XARELTO 20 MG) 20 Mg Tablet, 20 MG PO DAILY for 30 Days, #30 TAB 6 Refills Prov:MOHAMUD DEWITT VP TRAINING-BC, ONC 12/13/16 Reported Medications Vitamin B Complex (VITAMIN B COMPLEX) 1 Each Capsule, 1 EACH PO QDAY, CAPSULE 08/06/18 Vit A/Vit C/Vit E/Zinc/Copper (PRESERVISION AREDS SOFTGEL) 1 Each Capsule, 1 EACH PO QDAY, CAPSULE 08/06/18 Gabapentin (GABAPENTIN) 300 Mg Capsule, 300 MG PO TID, CAPSULE 07/21/18 Fluoxetine Hcl (PROZAC) 40 Mg Capsule, 50 MG PO QDAY, #90 CAPSULE 3 Refills 01/03/17 Diet: Regular Activity: As Tolerated Special Instructions: Your colonoscopy was completed without any problems and your prep was excellent (Good Job!!). I biopsied the surgical connection between your small and large intestine but I didn't see anything abnormal in this location. I removed 8 polyps from your colon and rectum and they were sent to pathology. My office will call you in the next week or two and let you know what the biopsies and polyps show and when your next colonscopy should be (either 3 or 5 years) depening on the pathology results. MICHAEL VILLATORO MD Aug 21, 2018 10:54
[2018-08-21 11:00] VITALS: BP 96/69
[2018-08-21 11:15] VITALS: BP 103/84
[2018-08-21 11:28] VITALS: BP 113/65
== END ==
LOC: OR 01:42
PROVIDERS: ATTEND Surgery
DX: D12.5 Benign neoplasm of sigmoid colon (principal); K63.5 Polyp of colon; Z85.038 Personal history of other malignant neoplasm of large intestine; Z86.010 Personal history of colon polyps; K62.1 Rectal polyp
CPT/HCPCS: 00811; 45385; 88305; J2704

== ENCOUNTER 2018-09-18 08:28 | Outpatient (RCR) | payer MEDICARE, BC ==
[2016-06-29 12:32] VITALS: BMI 29.5
[2018-06-26 10:55] VITALS: BP 129/84
[2018-06-26] MEDS: NS(*) 0.9% 500 ML BAG 500 ML IV PRN (12:05)
[2018-06-26] MEDS: LIDOCAINE/SOD BICARB 8.4% SYR ID PRN (13:21)
[2018-06-26] MEDS: HEPARIN FLSH (PORT) 500 UN/5ML IVP PRN (13:22)
--- NOTE | 2018-06-26 16:20 | [facility] ONCOLOGY NOTE ---
EVENT DATE: June 26, 2018 DIAGNOSES 1. Metastatic colon cancer. 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 CHIEF COMPLAINT Patient is here today for followup of her metastatic colon cancer, on treatment with Keytruda. ONCOLOGY HISTORY The patient is a 72-year-old female with the following oncology history. 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 Biopsy of the right tube and ovary consistent with spindle stroma. The patient received 11 cycles of adjuvant FOLFOX chemotherapy, received between May 31, 2013, through November 11, 2013, and treatment was stopped because of severe neuropathy. Her colonoscopy in December 2014 was unremarkable. On June 07, 2015, PET/CT scan showed postoperative changes of right hemicolectomy with 2.2 cm hypermetabolic left external iliac lymph node with [id number] 1.8 cm low-density lesion in the dome of the liver which was not previously seen, with suspected cyst. There was an 8 mm mesenteric lymph node near the aortic bifurcation, not significantly changed from prior exam. On June 01, 2015, left iliac lymph node core biopsy was benign lymph node with reactive changes, negative for malignancy. On August 11, 2015, CT scan showed enlarging 2.1 cm, low-density liver lesion with slight lobulated/irregular margins suggestive of cyst, but necrotic metastasis cannot be excluded. An 8 mm right lobe liver lesion was stable, consistent with cyst, stable left external iliac lymph node, and 3.6 cm right adrenal adenoma. On November 03, 2015, CT showed 2 cm, hypodense liver lesion with indistinct margins in the right lobe at the dome, essentially unchanged. On January 28, 2015, PET/CT scan showed previous right hemicolectomy, increase in the size of the lesion near the dome of the right hepatic lobe, now measuring 3.3 x 2.5 cm, with borderline increased metabolic activity, consistent with metastasis. There was hypermetabolic left external iliac and mesenteric lymphadenopathy which was slightly more metabolically reactive than prior with stable 3.5 x 3.1 cm right adrenal gland mass with increased metabolic activity. The patient also during this period of time showed rising of her CEA. CT of chest, abdomen, and pelvis done on May 06, 2016, identified changes of the previous right colectomy. Pelvic lymph nodes are impaired when compared to January. Hypo-enhancing lesion in the dome of the liver is mildly increased. Right adrenal nodule is stable, likely benign. CT-guided biopsy of the liver lesion led to the right hepatectomy done on June 07, 2016. Biopsy of the left lateral section cyst showed mild steatotic liver with denuded cyst, consistent with solitary bile duct cyst. Right hepatectomy came back positive for mucinous adenocarcinoma, 3.3 cm tumor, morphologically consistent with metastatic high-grade colon cancer in the liver. Margins were negative with background steatosis. KRAS and NRAS mutations came back negative, but BRAF mutation came back positive. Microsatellite instability testing came back high, so the patient could get benefit from checkpoint inhibitors. The patient started treatment with Keytruda given that her microsatellite instability was high on September 20, 2016. HISTORY OF PRESENT ILLNESS Patient is here today for followup of her metastatic colon cancer, on treatment with Keytruda. She is doing fine currently. She has diarrhea alternating with constipation. He continues to have neuropathy from her previous chemotherapy and Guillain-[place] syndrome. She is wheelchair bound. Her general condition is very, very stable currently. PAST MEDICAL HISTORY 1. Recurrent metastatic colon cancer. 2. Arthritis. 3. Guillain-[place] syndrome. PAST SURGICAL HISTORY 1. Fracture surgery of right leg, two plates and screws. 2. Colonic surgeries. 3. Right hemicolectomy on April 04, 2013. 4. Right hepatectomy June 07, 2016. SOCIAL HISTORY The patient is . Her spouse is disabled. She is a former smoker. She quit on November 29, 2010. Denies any smokeless tobacco. No abuse of alcohol or illicit drugs. FAMILY HISTORY Positive for prostate cancer, colon cancer, Alzheimer's, parkinsonism. Prostate cancer in her father and colon cancer in her father, too. CURRENT MEDICATIONS 1. Oxycodone 5 mg q.4 hours p.r.n. for pain. 2. Lasix 20 mg daily. 3. Zofran 8 mg q.8 hours p.r.n. for nausea and vomiting. 4. Lexapro 20 mg daily. 5. Ativan 1 mg at bedtime for nausea. 6. Protonix 40 mg daily. ALLERGIES PENICILLIN. REVIEW OF SYSTEMS CONSTITUTIONAL: No appetite or weight change. No fever, chills, or sweating. No recent infection. HEENT: Ears: No tinnitus or hearing problem. Nose: No nasal discharge or epistaxis. Throat: No sore throat or mouth ulcers. Eyes: No diplopia or visual changes. RESPIRATORY: No shortness of breath. No cough, expectoration, or hemoptysis. CARDIOVASCULAR: No chest pain, orthopnea, or paroxysmal nocturnal dyspnea (PND). No edema. No palpitations. GASTROINTESTINAL: She has alternating diarrhea and constipation. GENITOURINARY: No hematuria or dysuria. MUSCULOSKELETAL: No pain in the muscles, joints, or bones. NEUROLOGICAL: She has neuropathy in her hands and feet from previous chemotherapy and Guillain-[place] syndrome. HEMATOLOGIC/LYMPHATIC: No bleeding or easy bruising. No weakness or fatigue. No enlarged lymph nodes. SKIN: No skin rash or lumps. PSYCHIATRIC: No anxiety or depression. PHYSICAL EXAMINATION GENERAL: Looks stable. Well developed, well nourished, and in no acute distress. VITAL SIGNS: Blood pressure 129/84, pulse 75 per minute, respirations 17 per minute, temperature 99.2, pulse ox 90% on room air. HEENT: Head: Atraumatic. No sinus tenderness to palpation. Eyes: No icterus or conjunctivitis. Mouth and Throat: No oral thrush or mucositis. NECK: Supple. No cervical or supraclavicular lymphadenopathy. LUNGS: Clear to auscultation and percussion bilaterally. HEART: Regular rate and rhythm. No gallops, murmurs, clicks, or rubs. ABDOMEN: Soft and lax. No tenderness. No hepatosplenomegaly. No masses. EXTREMITIES: No cyanosis, clubbing, or edema. LYMPHATICS: No peripheral lymphadenopathy. NEUROLOGICAL: She is conscious, alert, and oriented times three. She is wheelchair bound because of her Guillain-[place] syndrome. PSYCHIATRIC: Mood and affect appear normal. SKIN: No skin rash, bruise, or purpuric eruption. DIAGNOSTIC DATA CBC showed white count 8.4, hemoglobin 15.3, hematocrit 45.3, platelets 232,000. Chem panel is totally normal. CEA is 5.5, which is up from 5, which was up from 1.7 in the last two months. TSH is 1.93. ASSESSMENT 1. Recurrent metastatic colon cancer. Patient was initially diagnosed with stage III colon cancer and received 11 cycles of chemotherapy with FOLFOX, and on progression, she received FOLFIRI for four cycles. The first two cycles of FOLFIRI were full dose, but the last two cycles were 25% dose reduced because of severe reaction to FOLFIRI. Patient had partial hepatectomy for metastatic lesion in the liver June 07, 2016. Tumor was 3.3 mucinous adenocarcinoma. KRAS and NRAS mutations came back negative, but BRAF mutation came back positive. Tumor was microsatellite instability high, and for this reason, patient started treatment with Keytruda September 20, 2016. She is tolerating treatment very well, and her PET scans March 24, 2017, and November 14, 2017 both came back negative for disease. The left external iliac lymph node showed less activity, and the SUV dropped from 9.6 to 5.7. Her tumor marker showed fluctuation between 5 and 6, but her marker in March was 1.7, then increased to 5, and currently is 5.5, and for this reason, I am planning to repeat her PET/CT scan for further evaluation. I am planning to proceed with her Keytruda cycle #31 today. I will see her again in three weeks with CBC, chemistry panel, CEA, TSH, free T4, and free T3. 2. Right adrenal mass, stable by PET scan. 3. Guillain-[place] syndrome, wheelchair bound. 4. Hepatic metastasis from colon cancer, status post resection, on Keytruda with stable disease with rise of her CEA currently. PLAN 1. Keytruda therapy. This will be cycle #31. 2. PET/CT scan. 3. Patient to return in three weeks with CBC, chem panel, CEA, TSH, free T3, and free T4. 4. Patient to contact us for any new concern or complaints. MTDD
--- NOTE | 2018-07-14 14:24 | NUR ---
JULIA rec'd information that the pt was approved for the [facility] Patient Assistance Program for Keytruda. JULIA placed an order to be sent to [facility] on 07/16/18.
[2018-07-17 08:45] LABS: PLATELET COUNT, AUTOMATED 193 K/uL (150-450)
[2018-07-17 08:47] VITALS: BP 121/71
[2018-07-17] MEDS: LIDOCAINE/SOD BICARB 8.4% SYR ID PRN (09:28)
[2018-07-17] MEDS: HEPARIN FLSH (PORT) 500 UN/5ML IVP PRN (09:28)
[2018-07-17] MEDS: NS(*) 0.9% 500 ML BAG 500 ML IV PRN (09:28)
[2018-07-17 10:11] VITALS: BP 126/63
--- NOTE | 2018-07-18 00:30 | ONCOLOGY FOLLOW UP NOTE ---
EVENT DATE: July 17, 2018 CHIEF COMPLAINT Followup for metastatic colon cancer. HISTORY OF PRESENT ILLNESS Patient is a 72-year-old female who was seen today for consideration of cycle #32 of Keytruda. She continues to tolerate the immunotherapy without issue. She states she had some intermittent diarrhea, but felt that it was related to food. It has now resolved. 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 She also notes numbness in her fingers which she believes is related to Guillain-Durham. She is here to discuss the results of most recent PET scan. ONCOLOGY HISTORY The patient is a 72-year-old female with the following oncology history. 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 Biopsy of the right tube and ovary consistent with spindle stroma. The patient received 11 cycles of adjuvant FOLFOX chemotherapy, received between May 31, 2013, through November 11, 2013, and treatment was stopped because of severe neuropathy. Her colonoscopy in December 2014 was unremarkable. On June 07, 2015, PET/CT scan showed postoperative changes of right hemicolectomy with 2.2 cm hypermetabolic left external iliac lymph node with [id number] 1.8 cm low-density lesion in the dome of the liver which was not previously seen, with suspected cyst. There was an 8 mm mesenteric lymph node near the aortic bifurcation, not significantly changed from prior exam. On June 01, 2015, left iliac lymph node core biopsy was benign lymph node with reactive changes, negative for malignancy. On August 11, 2015, CT scan showed enlarging 2.1 cm, low-density liver lesion with slight lobulated/irregular margins suggestive of cyst, but necrotic metastasis cannot be excluded. An 8 mm right lobe liver lesion was stable, consistent with cyst, stable left external iliac lymph node, and 3.6 cm right adrenal adenoma. On November 03, 2015, CT showed 2 cm, hypodense liver lesion with indistinct margins in the right lobe at the dome, essentially unchanged. On January 28, 2015, PET/CT scan showed previous right hemicolectomy, increase in the size of the lesion near the dome of the right hepatic lobe, now measuring 3.3 x 2.5 cm, with borderline increased metabolic activity, consistent with metastasis. There was hypermetabolic left external iliac and mesenteric lymphadenopathy which was slightly more metabolically reactive than prior with stable 3.5 x 3.1 cm right adrenal gland mass with increased metabolic activity. The patient also during this period of time showed rising of her CEA. CT of chest, abdomen, and pelvis done on May 06, 2016, identified changes of the previous right colectomy. Pelvic lymph nodes are impaired when compared to January. Hypo-enhancing lesion in the dome of the liver is mildly increased. Right adrenal nodule is stable, likely benign. CT-guided biopsy of the liver lesion led to the right hepatectomy done on June 07, 2016. Biopsy of the left lateral section cyst showed mild steatotic liver with denuded cyst, consistent with solitary bile duct cyst. Right hepatectomy came back positive for mucinous adenocarcinoma, 3.3 cm tumor, morphologically consistent with metastatic high-grade colon cancer in the liver. Margins were negative with background steatosis. KRAS and NRAS mutations came back negative, but BRAF mutation came back positive. Microsatellite instability testing came back high, so the patient could get benefit from checkpoint inhibitors. The patient started treatment with Keytruda given that her microsatellite instability was high on September 20, 2016. PAST MEDICAL HISTORY 1. Recurrent metastatic colon cancer. 2. Arthritis. 3. Guillain-Durham syndrome. PAST SURGICAL HISTORY 1. Fracture surgery of right leg, two plates and screws. 2. Colonic surgeries. 3. Right hemicolectomy on April 04, 2013. 4. Right hepatectomy June 07, 2016. SOCIAL HISTORY The patient is . Her spouse is disabled. She is a former smoker. She quit on November 29, 2010. Denies any smokeless tobacco. No abuse of alcohol or illicit drugs. FAMILY HISTORY Positive for prostate cancer, colon cancer, Alzheimer's, parkinsonism. Prostate cancer in her father and colon cancer in her father, too. CURRENT MEDICATIONS 1. Oxycodone 5 mg q.4 hours p.r.n. for pain. 2. Lasix 20 mg daily. 3. Zofran 8 mg q.8 hours p.r.n. for nausea and vomiting. 4. Lexapro 20 mg daily. 5. Ativan 1 mg at bedtime for nausea. 6. Protonix 40 mg daily. ALLERGIES PENICILLIN. REVIEW OF SYSTEMS A 12-point review of systems is performed and is negative except as stated above. PHYSICAL EXAMINATION VITAL SIGNS: Blood pressure 126/63, pulse 75, respirations 18, temp 98.2, O2 sat 90%. GENERAL: Patient is a well-developed, well-nourished female in no acute distress. HEAD: Normocephalic, atraumatic. EYES: Sclerae anicteric. MOUTH: Moist mucous membranes. NECK: Supple. No palpable adenopathy. LUNGS: Clear bilaterally. CARDIOVASCULAR: Heart rate regular, 75 per minute, without murmur, S3, or S4. EXTREMITIES: No edema. NEUROLOGIC: Toe drop when ambulating due to Guillain-Durham, wheelchair bound. LABORATORIES CBC today reveals WBC of 6.9, hemoglobin 15.0, hematocrit 45.0, platelets 193,000. CMP, CEA, and thyroid panel are pending. ASSESSMENT The patient is a 72-year-old female with metastatic colon cancer. She was diagnosed with stage III colon cancer and completed 11 cycles of FOLFOX. She then received four cycles of FOLFIRI on progression. Underwent partial hepatectomy for metastatic lesion in May 2016. Began treatment with Keytruda in August 2016. 1. Metastatic colon cancer. Cycle #32 of Keytruda. She continues to tolerate this well. CEA has remained slightly elevated, but stable. Thyroid panel has also remained stable. 2. Response. PET scan on 07/15/18 showed stable right adrenal gland as well as a stable left external iliac node. There was subtle wall thickening at the anastomotic site with a slightly increased SUV to 6.1, possibly related to recurrence. For this reason, she is referred to Surgery for colonoscopy and probable biopsy of this area. She is in agreement with this plan. 3. Gastrointestinal. Intermittent diarrhea for several days. She believes this was food related. We briefly discussed that immunotherapy could cause persistent diarrhea, and she will notify us if this continues. It has for the most part resolved at this time. 4. Neuropathy. 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 She is somewhat uncomfortable at night. She will begin gabapentin 300 mg at bedtime. She can increase this to t.i.d. as needed. She hopes that this will be helpful for her. 5. Follow up in three weeks for her next cycle of treatment, earlier if there is a problem. MTDD
[2018-08-07 08:23] VITALS: BP 122/99
[2018-08-07] MEDS: NS(*) 0.9% 100 ML BAG 100 ML IVPB PRN (08:45)
[2018-08-07 09:00] LABS: PLATELET COUNT, AUTOMATED 190 K/uL (150-450)
[2018-08-07] MEDS: HEPARIN FLSH (PORT) 500 UN/5ML IVP PRN (10:14)
[2018-08-07] MEDS: LIDOCAINE/SOD BICARB 8.4% SYR ID PRN (10:15)
[2018-08-07 10:52] VITALS: BP 120/68
--- NOTE | 2018-08-07 11:48 | [facility] ONCOLOGY NOTE ---
EVENT DATE: August 07, 2018 DIAGNOSES 1. Metastatic colon cancer. 2. Guillain-Ukiah syndrome. CHIEF COMPLAINT Patient is here today for followup of her metastatic colon cancer, on treatment with Keytruda. ONCOLOGY HISTORY The patient is a 72-year-old female with the following oncology history. 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 Biopsy of the right tube and ovary consistent with spindle stroma. The patient received 11 cycles of adjuvant FOLFOX chemotherapy, received between May 31, 2013, through November 11, 2013, and treatment was stopped because of severe neuropathy. Her colonoscopy in December 2014 was unremarkable. On June 07, 2015, PET/CT scan showed postoperative changes of right hemicolectomy with 2.2 cm hypermetabolic left external iliac lymph node with [id number] 1.8 cm low-density lesion in the dome of the liver which was not previously seen, with suspected cyst. There was an 8 mm mesenteric lymph node near the aortic bifurcation, not significantly changed from prior exam. On June 01, 2015, left iliac lymph node core biopsy was benign lymph node with reactive changes, negative for malignancy. On August 11, 2015, CT scan showed enlarging 2.1 cm, low-density liver lesion with slight lobulated/irregular margins suggestive of cyst, but necrotic metastasis cannot be excluded. An 8 mm right lobe liver lesion was stable, consistent with cyst, stable left external iliac lymph node, and 3.6 cm right adrenal adenoma. On November 03, 2015, CT showed 2 cm, hypodense liver lesion with indistinct margins in the right lobe at the dome, essentially unchanged. On January 28, 2015, PET/CT scan showed previous right hemicolectomy, increase in the size of the lesion near the dome of the right hepatic lobe, now measuring 3.3 x 2.5 cm, with borderline increased metabolic activity, consistent with metastasis. There was hypermetabolic left external iliac and mesenteric lymphadenopathy which was slightly more metabolically reactive than prior with stable 3.5 x 3.1 cm right adrenal gland mass with increased metabolic activity. The patient also during this period of time showed rising of her CEA. CT of chest, abdomen, and pelvis done on May 06, 2016, identified changes of the previous right colectomy. Pelvic lymph nodes are impaired when compared to January. Hypo-enhancing lesion in the dome of the liver is mildly increased. Right adrenal nodule is stable, likely benign. CT-guided biopsy of the liver lesion led to the right hepatectomy done on June 07, 2016. Biopsy of the left lateral section cyst showed mild steatotic liver with denuded cyst, consistent with solitary bile duct cyst. Right hepatectomy came back positive for mucinous adenocarcinoma, 3.3 cm tumor, morphologically consistent with metastatic high-grade colon cancer in the liver. Margins were negative with background steatosis. KRAS and NRAS mutations came back negative, but BRAF mutation came back positive. Microsatellite instability testing came back high, so the patient could get benefit from checkpoint inhibitors. The patient started treatment with Keytruda given that her microsatellite instability was high on September 20, 2016. HISTORY OF PRESENT ILLNESS Patient is here today for followup of her metastatic colon cancer, on treatment with Keytruda. She is doing fine currently. She has alternating diarrhea and constipation, which is chronic for her. 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 Other than that, she is really doing very well. PAST MEDICAL HISTORY 1. Recurrent metastatic colon cancer. 2. Arthritis. 3. Guillain-Ukiah syndrome. PAST SURGICAL HISTORY 1. Fracture surgery of right leg, two plates and screws. 2. Colonic surgeries. 3. Right hemicolectomy on April 04, 2013. 4. Right hepatectomy June 07, 2016. SOCIAL HISTORY The patient is . Her spouse is disabled. She is a former smoker. She quit on November 29, 2010. Denies any smokeless tobacco. No abuse of alcohol or illicit drugs. FAMILY HISTORY Positive for prostate cancer, colon cancer, Alzheimer's, parkinsonism. Prostate cancer in her father and colon cancer in her father, too. CURRENT MEDICATIONS 1. Oxycodone 5 mg q.4 hours p.r.n. for pain. 2. Lasix 20 mg daily. 3. Zofran 8 mg q.8 hours p.r.n. for nausea and vomiting. 4. Lexapro 20 mg daily. 5. Ativan 1 mg at bedtime for nausea. 6. Protonix 40 mg daily. ALLERGIES PENICILLIN. REVIEW OF SYSTEMS CONSTITUTIONAL: No appetite or weight change. No fever, chills, or sweating. No recent infection. HEENT: Ears: No tinnitus or hearing problem. Nose: No nasal discharge or epistaxis. Throat: No sore throat or mouth ulcers. Eyes: No diplopia or visual changes. RESPIRATORY: No shortness of breath. No cough, expectoration, or hemoptysis. CARDIOVASCULAR: No chest pain, orthopnea, or paroxysmal nocturnal dyspnea (PND). No edema. No palpitations. GASTROINTESTINAL: She has alternating diarrhea and constipation. GENITOURINARY: No hematuria or dysuria. MUSCULOSKELETAL: No pain in the muscles, joints, or bones. NEUROLOGICAL: She has tingling and numbness from her previous chemotherapy and Guillain-Ukiah syndrome. HEMATOLOGIC/LYMPHATIC: No bleeding or easy bruising. No weakness or fatigue. No enlarged lymph nodes. SKIN: No skin rash or lumps. PSYCHIATRIC: No anxiety or depression. PHYSICAL EXAMINATION GENERAL: Looks stable. Well developed, well nourished, and in no acute distress. VITAL SIGNS: Blood pressure 122/99, pulse 70 per minute, respirations 16 per minute, temperature 98 per minute, pulse ox 94% on room air. HEENT: Head: Atraumatic. No sinus tenderness to palpation. Eyes: No icterus or conjunctivitis. Mouth and Throat: No oral thrush or mucositis. NECK: Supple. No cervical or supraclavicular lymphadenopathy. LUNGS: Clear to auscultation and percussion bilaterally. HEART: Regular rate and rhythm. No gallops, murmurs, clicks, or rubs. ABDOMEN: Soft and lax. No tenderness. No hepatosplenomegaly. No masses. EXTREMITIES: No cyanosis, clubbing, or edema. LYMPHATICS: No peripheral lymphadenopathy. NEUROLOGICAL: She is conscious, alert, and oriented x3. She is wheelchair bound because of her Guillain-Ukiah syndrome. PSYCHIATRIC: Mood and affect appear normal. SKIN: No skin rash, bruise, or purpuric eruption. DIAGNOSTIC DATA CBC showed white count 7.1, hemoglobin 15.2, hematocrit 44.9, platelets 190,000. Chem panel is pending. TSH was 1.4, free T4 was 1.2, free T3 was 2.8, all within the normal range. CEA is 5.4, which is down from 5.5. Her marker for today is pending. ASSESSMENT 1. Recurrent metastatic colon cancer. Patient was initially diagnosed with stage III colon cancer and received 11 cycles of chemotherapy with FOLFOX, and on progression she received FOLFIRI for two cycles and the other two cycles of FOLFIRI were dose reduced by 25% because of severe reaction. The patient had partial hepatectomy for metastatic lesion in the liver June 07, 2016. Tumor was 3.3 mucinous adenocarcinoma. KRAS and NRAS mutations were negative but BRAF mutation was positive. Tumor was microsatellite instability high and for this reason patient started treatment with Keytruda September 20, 2016. She is tolerating treatment very well and her PET scans March 24, 2017, and November 14, 2017, all came back negative for disease. Her left external iliac lymph node showed less activity and the SUV dropped from 9.6 to 5.7. Her tumor marker showed fluctuations between 5 and 6 and her shale miner blasting was 5.4, down from 5.5. I am planning to continue her treatment with Keytruda. This will be cycle #33. I will see her again in three weeks with CBC, chem panel and CEA, TSH, free T4 and free T3. 2. Right adrenal mass, stable by PET scan. 3. Guillain-Ukiah syndrome, wheelchair bound. 4. Hepatic metastasis from colon cancer, status post resection, on Keytruda currently with stable disease. PLAN 1. Keytruda therapy. This will be cycle #33 2. Patient to return in three weeks with CBC, chem panel, CEA, TSH, free T3 and free T4. 3. Patient to contact us for any new concern or complaints. MTDD
--- NOTE | 2018-08-20 09:37 | NUR ---
JULIA scheduled delivery of keytruda for her next infusion. Will arrive on 08/21/2018.
[2018-08-28 10:02] VITALS: BP 127/75
[2018-08-28] MEDS: LIDOCAINE/SOD BICARB 8.4% SYR ID PRN (11:39)
[2018-08-28] MEDS: HEPARIN FLSH (PORT) 500 UN/5ML IVP PRN (11:39)
[2018-08-28] MEDS: NS(*) 0.9% 500 ML BAG 500 ML IV PRN (11:40)
[2018-08-28 12:29] VITALS: BP 112/89
--- NOTE | 2018-08-28 21:21 | ONCOLOGY FOLLOW UP NOTE ---
EVENT DATE: August 28, 2018 CHIEF COMPLAINT Followup for metastatic colon cancer. HISTORY OF PRESENT ILLNESS Patient is a 72-year-old female, seen today for followup and consideration of Cycle #34 of Keytruda. She continues to tolerate immunotherapy well without any toxicity. She does report that she's had some intermittent diarrhea, but also states that she's had chronic fluctuation with both intermittent diarrhea and constipation for many years. This is currently at her baseline. She occasionally uses stool softeners and antidiarrheals, but tells me that she only uses OTC antidiarrheals when going on long trips. She uses one [id number] Imodium once every three or four weeks. She is eating and drinking well. She does report chronic peripheral neuropathy with numbness reported in her feet bilaterally as well as dropped toes secondary to Guillain-Export syndrome and prior chemotherapy. She also reports some numbness in her fingers bilaterally, which she attributes to Guillain-Export. She had a recent PET scan on . PET scan showed stable right adrenal gland as well as a stable left external iliac node. There was some subtle wall thickening at the anastomotic site with a slightly increased SUV to 6.1, which could have possibly been related to recurrence. For that reason, she was referred to Surgery and had colonoscopy and biopsy with Dr. Coleman. Colonoscopy was done on 08/21/18. Patient is aware of results. Colonoscopy was largely negative with the exception of tubular adenoma. She was instructed to repeat colonoscopy in three years. Her CEA has also been fluctuating and recently was 5.4, down from 5.5. ONCOLOGY HISTORY The patient is a 72-year-old female with the following oncology history. 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 Biopsy of the right tube and ovary consistent with spindle stroma. The patient received 11 cycles of adjuvant FOLFOX chemotherapy, received between May 31, 2013, through November 11, 2013, and treatment was stopped because of severe neuropathy. Her colonoscopy in December 2014 was unremarkable. On June 07, 2015, PET/CT scan showed postoperative changes of right hemicolectomy with 2.2 cm hypermetabolic left external iliac lymph node with [id number] 1.8 cm low-density lesion in the dome of the liver which was not previously seen, with suspected cyst. There was an 8 mm mesenteric lymph node near the aortic bifurcation, not significantly changed from prior exam. On June 01, 2015, left iliac lymph node core biopsy was benign lymph node with reactive changes, negative for malignancy. On August 11, 2015, CT scan showed enlarging 2.1 cm, low-density liver lesion with slight lobulated/irregular margins suggestive of cyst, but necrotic metastasis cannot be excluded. An 8 mm right lobe liver lesion was stable, consistent with cyst, stable left external iliac lymph node, and 3.6 cm right adrenal adenoma. On November 03, 2015, CT showed 2 cm, hypodense liver lesion with indistinct margins in the right lobe at the dome, essentially unchanged. On January 28, 2015, PET/CT scan showed previous right hemicolectomy, increase in the size of the lesion near the dome of the right hepatic lobe, now measuring 3.3 x 2.5 cm, with borderline increased metabolic activity, consistent with metastasis. There was hypermetabolic left external iliac and mesenteric lymphadenopathy which was slightly more metabolically reactive than prior with stable 3.5 x 3.1 cm right adrenal gland mass with increased metabolic activity. The patient also during this period of time showed rising of her CEA. CT of chest, abdomen, and pelvis done on May 06, 2016, identified changes of the previous right colectomy. Pelvic lymph nodes are impaired when compared to January. Hypo-enhancing lesion in the dome of the liver is mildly increased. Right adrenal nodule is stable, likely benign. CT-guided biopsy of the liver lesion led to the right hepatectomy done on June 07, 2016. Biopsy of the left lateral section cyst showed mild steatotic liver with denuded cyst, consistent with solitary bile duct cyst. Right hepatectomy came back positive for mucinous adenocarcinoma, 3.3 cm tumor, morphologically consistent with metastatic high-grade colon cancer in the liver. Margins were negative with background steatosis. KRAS and NRAS mutations came back negative, but BRAF mutation came back positive. Microsatellite instability testing came back high, so the patient could get benefit from checkpoint inhibitors. The patient started treatment with Keytruda given that her microsatellite instability was high on September 20, 2016. PAST MEDICAL HISTORY 1. Recurrent metastatic colon cancer. 2. Arthritis. 3. Guillain-Export syndrome. PAST SURGICAL HISTORY 1. Fracture surgery of right leg, two plates and screws. 2. Colonic surgeries. 3. Right hemicolectomy on April 04, 2013. 4. Right hepatectomy June 07, 2016. SOCIAL HISTORY The patient is . Her spouse is disabled. She is a former smoker. She quit on November 29, 2010. Denies any smokeless tobacco. No abuse of alcohol or illicit drugs. FAMILY HISTORY Positive for prostate cancer, colon cancer, Alzheimer's, parkinsonism. Prostate cancer in her father and colon cancer in her father, too. CURRENT MEDICATIONS 1. Oxycodone 5 mg q.4 hours p.r.n. for pain. 2. Lasix 20 mg daily. 3. Zofran 8 mg q.8 hours p.r.n. for nausea and vomiting. 4. Lexapro 20 mg daily. 5. Ativan 1 mg at bedtime for nausea. 6. Protonix 40 mg daily. ALLERGIES PENICILLIN. REVIEW OF SYSTEMS A 12-point review of systems is performed and is negative except as stated above. Patient is in good spirits and reports that she feels very well. PHYSICAL EXAMINATION VITAL SIGNS: Height 135.26 cm, Weight 97.2 kg at previous visit. T 98.3 F, BP 127/75, P 79, R 16, oxygen saturation 90% on room air. GENERAL: Patient is a well-developed, well-nourished female in no acute distress. HEAD: Normocephalic, atraumatic. EYES: Sclerae anicteric. MOUTH: Moist mucous membranes. NECK: Supple. No palpable adenopathy. LUNGS: Clear breath sounds to auscultation bilaterally. CARDIOVASCULAR: Heart rate regular with normal rhythm. No murmur or ectopy. EXTREMITIES: No edema. DERM: Cursory examination did not reveal any signs or symptoms of an immune- mediated rash. Right chest wall Port-A-Cath is free from signs of infection. NEUROLOGIC: Toe drop when ambulating secondary to Guillain-Export, wheelchair bound. Patient is A and O times three. PSYCHIATRIC: Patient is in good spirits. Mood and affect are within normal limits. LABORATORY CBC, CMP, CEA, TSH, free T3, free T4, magnesium level all ordered for today and currently pending. IMPRESSION The patient is a 72-year-old female with metastatic colon cancer. She was diagnosed with stage III colon cancer and completed 11 cycles of FOLFOX. She then received four cycles of FOLFIRI on progression. She then underwent partial hepatectomy for metastatic lesion in May 2016. She initiated treatment with Keytruda in August 2016. She has been tolerating immunotherapy for nearly two years quite well. PLAN 1. Metastatic colon cancer: Patient due for Cycle #34 with Keytruda today. She will proceed with this today. She continues to tolerate this well. 2. Labs/response: Patient's CEA has been fluctuating in the past and has remained slightly elevated, although stable. At least check, her CEA was down to 5.2 on 08/07/2017, down from 5.4. Will continue to monitor her trend. For now, this is stable. 3. Response/imaging: Patient's most recent scan was done on 07/15/2018 with PET scan. This showed stable right internal gland as well as stable left external iliac node. There was subtle wall thickening at the anastomotic sight with a slightly increased SUV to 6.1, possibly related to recurrence. Due to that fact, she was then referred to Surgery for colonoscopy and biopsy. She had colonoscopy done on 08/21/[address] Coleman. Results were negative with the exception of tubular adenoma. She was instructed to return in three years for followup colonoscopy. She is well aware of results and reports that her surgeon called her to discuss. We again discussed it today. We will not be changing her current treatment plan at this time. 4. GI: Patient has a history of chronic fluctuation between constipation and diarrhea. This is largely stable. She reports that she only occasionally takes an Imodium, maybe once every three weeks, and that is largely done when she travels out of town for long stretches. We discussed side effects related to immunotherapy, specifically immune-mediated diarrhea. She is aware that she needs to notify us if this worsens, but at this point, she is at her baseline and is doing quite well. 5. Neuropathy: Chronic peripheral neuropathy related to prior chemotherapy exposure with FOLFOX and also secondary to her history of Guillain-Export. Currently, she is on gabapentin 300 mg one capsule at bedtime. We discussed that she may increase this, though at this time she remains on one capsule at bedtime. She is doing well on this, and no change will be made. We did discuss, though, that in the future if needed, we can slowly titrate this up. 6. Patient will return to clinic in three weeks for followup with [employer] and will be due to receive Cycle #35 with Keytruda at that time. MTDD
--- NOTE | 2018-09-11 09:11 | NUR ---
JULIA rec'd confirmation that the two vials of keytruda that were wasted for the patient's infusion on 08/28 were being replaced. JULIA contacted [facility] and set up shipment for the two vials to come on 09/15/18, and also requested the two vials for her next infusion ( to be given on 09/18/18) to also be delivered on 09/15/18. 4 total vials will be delivered this day. [facility] is also sending a return label to JULIA email to send back the two wasted vials. Addendum: 09/11/18 at 0913 by VIRGINIA GARCIAS LCSW LCSW JULIA notified pharmacy and director of this information.
[~2018-09-18 08:28] MED LIST changes: +ALTEPLASE RECOMB 2 MG VIAL IVP PRN; +DEXTROSE 5%(*) 100 ML BAG 100 ML IVPB PRN; -LIDOCAINE/SOD BICARB 8.4% SYR ID ONE; -NORMOSOL R SOLN(*) 1000 ML BAG 1,000 ML IV PRN; +PEMBROLIZUMAB 100 MG/4 ML SDV 200 MG in NS(*) 0.9% 50 ML BAG 50 ML IV ONE; -PROPOFOL EMUL(*) 10MG/ML 20 ML 20 ML ONE; +WATER FOR INJ,STERILE 20 ML IVP PRN
[2018-09-18 08:34] VITALS: BP 113/49
[2018-09-18] MEDS ORDERED: PEMBROLIZUMAB 100 MG/4 ML SDV 200 MG in NS(*) 0.9% 50 ML BAG 50 ML IV ONE (09:25)
[2018-09-18] MEDS: LIDOCAINE/SOD BICARB 8.4% SYR ID PRN (09:31)
[2018-09-18] MEDS: NS(*) 0.9% 100 ML BAG 100 ML IVPB PRN (09:32)
[2018-09-18 10:09] VITALS: BP 110/70
[2018-09-18] MEDS: HEPARIN FLSH (PORT) 500 UN/5ML IVP PRN (10:20)
--- NOTE | 2018-09-18 10:33 | [facility] ONCOLOGY NOTE ---
EVENT DATE: September 18, 2018 DIAGNOSES 1. Metastatic colon cancer. 2. Guillain-Williamsfield syndrome. CHIEF COMPLAINT Patient is here today for followup of her metastatic colon cancer, on treatment with Keytruda. ONCOLOGY HISTORY The patient is a 72-year-old female with the following oncology history. 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 Biopsy of the right tube and ovary consistent with spindle stroma. The patient received 11 cycles of adjuvant FOLFOX chemotherapy, received between May 31, 2013, through November 11, 2013, and treatment was stopped because of severe neuropathy. Her colonoscopy in December 2014 was unremarkable. On June 07, 2015, PET/CT scan showed postoperative changes of right hemicolectomy with 2.2 cm hypermetabolic left external iliac lymph node with [id number] 1.8 cm low-density lesion in the dome of the liver which was not previously seen, with suspected cyst. There was an 8 mm mesenteric lymph node near the aortic bifurcation, not significantly changed from prior exam. On June 01, 2015, left iliac lymph node core biopsy was benign lymph node with reactive changes, negative for malignancy. On August 11, 2015, CT scan showed enlarging 2.1 cm, low-density liver lesion with slight lobulated/irregular margins suggestive of cyst, but necrotic metastasis cannot be excluded. An 8 mm right lobe liver lesion was stable, consistent with cyst, stable left external iliac lymph node, and 3.6 cm right adrenal adenoma. On November 03, 2015, CT showed 2 cm, hypodense liver lesion with indistinct margins in the right lobe at the dome, essentially unchanged. On January 28, 2015, PET/CT scan showed previous right hemicolectomy, increase in the size of the lesion near the dome of the right hepatic lobe, now measuring 3.3 x 2.5 cm, with borderline increased metabolic activity, consistent with metastasis. There was hypermetabolic left external iliac and mesenteric lymphadenopathy which was slightly more metabolically reactive than prior with stable 3.5 x 3.1 cm right adrenal gland mass with increased metabolic activity. The patient also during this period of time showed rising of her CEA. CT of chest, abdomen, and pelvis done on May 06, 2016, identified changes of the previous right colectomy. Pelvic lymph nodes are impaired when compared to January. Hypo-enhancing lesion in the dome of the liver is mildly increased. Right adrenal nodule is stable, likely benign. CT-guided biopsy of the liver lesion led to the right hepatectomy done on June 07, 2016. Biopsy of the left lateral section cyst showed mild steatotic liver with denuded cyst, consistent with solitary bile duct cyst. Right hepatectomy came back positive for mucinous adenocarcinoma, 3.3 cm tumor, morphologically consistent with metastatic high-grade colon cancer in the liver. Margins were negative with background steatosis. KRAS and NRAS mutations came back negative, but BRAF mutation came back positive. Microsatellite instability testing came back high, so the patient could get benefit from checkpoint inhibitors. The patient started treatment with Keytruda given that her microsatellite instability was high on September 20, 2016. HISTORY OF PRESENT ILLNESS Patient is here today for followup of her metastatic colon cancer, on treatment with Keytruda. She is doing really very well with that treatment. 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 She has alternating diarrhea and constipation but other than that she is really doing very well. PAST MEDICAL HISTORY 1. Recurrent metastatic colon cancer. 2. Arthritis. 3. Guillain-Williamsfield syndrome. PAST SURGICAL HISTORY 1. Fracture surgery of right leg, two plates and screws. 2. Colonic surgeries. 3. Right hemicolectomy on April 04, 2013. 4. Right hepatectomy June 07, 2016. SOCIAL HISTORY The patient is . Her spouse is disabled. She is a former smoker. She quit on November 29, 2010. Denies any smokeless tobacco. No abuse of alcohol or illicit drugs. FAMILY HISTORY Positive for prostate cancer, colon cancer, Alzheimer's, parkinsonism. Prostate cancer in her father and colon cancer in her father, too. CURRENT MEDICATIONS 1. Oxycodone 5 mg q.4 hours p.r.n. for pain. 2. Lasix 20 mg daily. 3. Zofran 8 mg q.8 hours p.r.n. for nausea and vomiting. 4. Lexapro 20 mg daily. 5. Ativan 1 mg at bedtime for nausea. 6. Protonix 40 mg daily. ALLERGIES PENICILLIN. REVIEW OF SYSTEMS CONSTITUTIONAL: No appetite or weight change. No fever, chills, or sweating. No recent infection. HEENT: Ears: No tinnitus or hearing problem. Nose: No nasal discharge or epistaxis. Throat: No sore throat or mouth ulcers. Eyes: No diplopia or visual changes. RESPIRATORY: No shortness of breath. No cough, expectoration, or hemoptysis. CARDIOVASCULAR: No chest pain, orthopnea, or paroxysmal nocturnal dyspnea (PND). No edema. No palpitations. GASTROINTESTINAL: She has alternating diarrhea and constipation. GENITOURINARY: No hematuria or dysuria. MUSCULOSKELETAL: No pain in the muscles, joints, or bones. NEUROLOGICAL: She has tingling and numbness in the hands and nearly loss of sensation in the lower extremities from Guillain-Williamsfield. HEMATOLOGIC/LYMPHATIC: No bleeding or easy bruising. No weakness or fatigue. No enlarged lymph nodes. SKIN: No skin rash or lumps. PSYCHIATRIC: No anxiety or depression. PHYSICAL EXAMINATION GENERAL: Looks stable. Well developed, well nourished, and in no acute distress. VITAL SIGNS: Blood pressure 113/49, pulse 89 per minute, respirations 16 per minute, temperature 97/8 per minute, pulse ox 91% on room air. HEENT: Head: Atraumatic. No sinus tenderness to palpation. Eyes: No icterus or conjunctivitis. Mouth and Throat: No oral thrush or mucositis. NECK: Supple. No cervical or supraclavicular lymphadenopathy. LUNGS: Clear to auscultation and percussion bilaterally. HEART: Regular rate and rhythm. No gallops, murmurs, clicks, or rubs. ABDOMEN: Soft and lax. No tenderness. No hepatosplenomegaly. No masses. EXTREMITIES: No cyanosis, clubbing, or edema. LYMPHATICS: No peripheral lymphadenopathy. NEUROLOGICAL: She is conscious, alert and oriented x3. She is wheelchair bound because of her Guillain-Williamsfield syndrome. PSYCHIATRIC: Mood and affect appear normal. SKIN: No skin rash, bruise, or purpuric eruption. DIAGNOSTIC DATA CBC showed white count 6.7 hemoglobin 14.9, hematocrit 44.9, platelets 212,000. Chem panel totally normal except chloride 108, blood sugar 129. TSH is 1.8, free T4 was 1.28, magnesium 2.1. CEA is 4.3, which is down from 5.2. ASSESSMENT 1. Recurrent metastatic colon cancer. Patient was initially diagnosed with stage III colon cancer and received 11 cycles of chemotherapy with FOLFOX and on progression she received FOLFIRI for two cycles full dose and another two cycles of modified-dose FOLFIRI by reduction of the dose by 25% because of the severe reaction. The patient had partial hepatectomy for metastatic lesion in the liver done June 07, 2016, and the pathology was positive for 3.3 mucinous adenocarcinoma. KRAS and NRAS mutations were negative but BRAF mutation was positive. Tumor was microsatellite instability high and for this reason patient started treatment with Keytruda September 20, 2016. Patient is tolerating treatment very well and her PET scans March 24, 2017, and November 14, 2017, all came back negative for disease. Her left external iliac lymph node showed less activity and the SUV dropped from 9.6 to 5.7. Her tumor marker showed fluctuations between 5 and 6. Her current marker is 4.3, down from 5.2. I am planning to continue same treatment with Keytruda and patient is really doing very well with that treatment. This cycle will be cycle #35. Patient will return back in three weeks with CBC, chem panel, CEA, TSH, free T3, free T4 and magnesium. 2. Right adrenal mass, stable by PET scan. 3. Guillain-Williamsfield syndrome, wheelchair bound. 4. Hepatic metastasis from colon cancer, status post resection, on Keytruda currently with very good response to treatment. PLAN 1. Keytruda therapy. This will be cycle #35. 2. Patient to return in three weeks with CBC, chem panel, CEA, TSH, free T3, free T4 and magnesium. 3. Patient to contact us for any new concern or complaints. MTDD
== END 2018-09-23 ==
LOC: ONC 08:28
PROVIDERS: ATTEND Internal Medicine Hematology
DX: Z51.11 Encounter for antineoplastic chemotherapy (principal); C18.9 Malignant neoplasm of colon, unspecified; C78.7 Secondary malignant neoplasm of liver and intrahepatic bile duct; G93.9 Disorder of brain, unspecified; Z92.21 Personal history of antineoplastic chemotherapy; E27.8 Other specified disorders of adrenal gland; G62.0 Drug-induced polyneuropathy; Z87.891 Personal history of nicotine dependence; Z79.899 Other long term (current) drug therapy; R53.1 Weakness; R53.83 Other fatigue; R05 Cough; Z99.3 Dependence on wheelchair
CPT/HCPCS: 82378; 83735; 84439; 84443; 84480; 84481; 85025; 85027; 96365; 96375; 96413; J1642; J2997; J7040; J7050; J9271; 82040; 82247; 82310; 82374; 82435; 82565; 82947; 84075; 84132; 84155; 84295; 84450; 84460; 84520

== ENCOUNTER 2018-12-11 08:27 | Outpatient (RCR) | payer MEDICARE, BC ==
[2016-06-29 12:32] VITALS: BMI 29.5
[2018-10-09 08:35] VITALS: BP 120/90
[2018-10-09] MEDS: NS(*) 0.9% 100 ML BAG 100 ML IVPB PRN (09:24)
[2018-10-09] MEDS: LIDOCAINE/SOD BICARB 8.4% SYR ID PRN (09:24)
[2018-10-09] MEDS: HEPARIN FLSH (PORT) 500 UN/5ML IVP PRN (09:24)
[2018-10-09 10:37] VITALS: BP 89/52
--- NOTE | 2018-10-10 08:58 | ONCOLOGY FOLLOW UP NOTE ---
EVENT DATE: October 09, 2018 DIAGNOSES 1. Metastatic colon cancer. 2. Guillain-[place] syndrome. CHIEF COMPLAINT Patient is here today for followup of her metastatic colon cancer, on treatment with Keytruda. Patient is here today for consideration of Cycle #36 with Keytruda. ONCOLOGY HISTORY The patient is a 72-year-old female with the following oncology history. 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 Biopsy of the right tube and ovary consistent with spindle stroma. The patient received 11 cycles of adjuvant FOLFOX chemotherapy, received between May 31, 2013, through November 11, 2013, and treatment was stopped because of severe neuropathy. Her colonoscopy in December 2014 was unremarkable. On June 07, 2015, PET/CT scan showed postoperative changes of right hemicolectomy with 2.2 cm hypermetabolic left external iliac lymph node with [id number] 1.8 cm low-density lesion in the dome of the liver which was not previously seen, with suspected cyst. There was an 8 mm mesenteric lymph node near the aortic bifurcation, not significantly changed from prior exam. On June 01, 2015, left iliac lymph node core biopsy was benign lymph node with reactive changes, negative for malignancy. On August 11, 2015, CT scan showed enlarging 2.1 cm, low-density liver lesion with slight lobulated/irregular margins suggestive of cyst, but necrotic metastasis cannot be excluded. An 8 mm right lobe liver lesion was stable, consistent with cyst, stable left external iliac lymph node, and 3.6 cm right adrenal adenoma. On November 03, 2015, CT showed 2 cm, hypodense liver lesion with indistinct margins in the right lobe at the dome, essentially unchanged. On January 28, 2015, PET/CT scan showed previous right hemicolectomy, increase in the size of the lesion near the dome of the right hepatic lobe, now measuring 3.3 x 2.5 cm, with borderline increased metabolic activity, consistent with metastasis. There was hypermetabolic left external iliac and mesenteric lymphadenopathy which was slightly more metabolically reactive than prior with stable 3.5 x 3.1 cm right adrenal gland mass with increased metabolic activity. The patient also during this period of time showed rising of her CEA. CT of chest, abdomen, and pelvis done on May 06, 2016, identified changes of the previous right colectomy. Pelvic lymph nodes are impaired when compared to January. Hypo-enhancing lesion in the dome of the liver is mildly increased. Right adrenal nodule is stable, likely benign. CT-guided biopsy of the liver lesion led to the right hepatectomy done on June 07, 2016. Biopsy of the left lateral section cyst showed mild steatotic liver with denuded cyst, consistent with solitary bile duct cyst. Right hepatectomy came back positive for mucinous adenocarcinoma, 3.3 cm tumor, morphologically consistent with metastatic high-grade colon cancer in the liver. Margins were negative with background steatosis. KRAS and NRAS mutations came back negative, but BRAF mutation came back positive. Microsatellite instability testing came back high, so the patient could get benefit from checkpoint inhibitors. The patient started treatment with Keytruda given that her microsatellite instability was high on September 20, 2016. HISTORY OF PRESENT ILLNESS Patient is here today for followup of her metastatic colon cancer, on treatment with Keytruda. She is doing really very well with that treatment. 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 She has alternating diarrhea and constipation but other than that she is really doing very well. She is excited about an upcoming trip to [place] in early October. Her will be taking her to a casino. PAST MEDICAL HISTORY 1. Recurrent metastatic colon cancer. 2. Arthritis. 3. Guillain-[place] syndrome. PAST SURGICAL HISTORY 1. Fracture surgery of right leg, two plates and screws. 2. Colonic surgeries. 3. Right hemicolectomy on April 04, 2013. 4. Right hepatectomy June 07, 2016. SOCIAL HISTORY The patient is . Her spouse is disabled. She is a former smoker. She quit on November 29, 2010. Denies any smokeless tobacco. No abuse of alcohol or illicit drugs. FAMILY HISTORY Positive for prostate cancer, colon cancer, Alzheimer's, parkinsonism. Prostate cancer in her father and colon cancer in her father, too. CURRENT MEDICATIONS 1. Oxycodone 5 mg q.4 hours p.r.n. for pain. 2. Lasix 20 mg daily. 3. Zofran 8 mg q.8 hours p.r.n. for nausea and vomiting. 4. Lexapro 20 mg daily. 5. Ativan 1 mg at bedtime for nausea. 6. Protonix 40 mg daily. ALLERGIES PENICILLIN. REVIEW OF SYSTEMS CONSTITUTIONAL: Patient denies any recent fever, chills or night sweats. No recent infections. HEENT: No vision changes. No tinnitus. No epistaxis. No mouth sores. RESPIRATORY: No shortness of breath. No cough, sputum production or hemoptysis. CARDIOVASCULAR: No chest pain. No syncope. No presyncope. No palpitations. GASTROINTESTINAL: No abdominal pain. She has a history of alternating diarrhea and constipation, which is quite stable and at baseline. No nausea or vomiting. Her appetite is excellent and states it's "too good". GENITOURINARY: No hematuria, dysuria or genitourinary discharge. MUSCULOSKELETAL: No focal area of pain. NEUROLOGICAL: She has numbness and tingling in the hands bilaterally as well as nearly loss of sensation in the lower extremities due to Guillain-[place]. HEMATOLOGIC/LYMPHATIC: No free bleeding or easy bruising. SKIN: No rash. No generalized pruritus. No lumps or bumps. PSYCHIATRIC: She denies any severe anxiety, severe depression, suicidal or homicidal ideation. PHYSICAL EXAMINATION VITAL SIGNS: No weight today. T 97.6, P 76, R 16, BP 120/90, oxygen saturation 90% room air. GENERAL: This is a pleasant 72-year old woman who appears well-developed, well- hydrated and is in no acute distress. She currently rates her pain at "0/10". She rates fatigue as "0/10". HEAD: Atraumatic, normocephalic. EYES: Sclerae anicteric. ENT/MOUTH: No mucositis. No signs of suspicious oral ulcerations. NECK: Supple. No lymphadenopathy. No JVD. LUNGS: Clear breath sounds to auscultation bilaterally. No wheezes, rales or rhonchi. HEART: Regular rate and rhythm. No ectopy. ABDOMEN: Soft, nontender, nondistended. Bowel sounds positive x4. No organomegaly. EXTREMITIES: No edema. No clubbing or cyanosis. NEURO: Patient is awake, alert, oriented x3. She is wheelchair bound secondary to her Guillain-[place] syndrome. No focal findings. PSYCHIATRIC: Mood and affect are appropriate. DERM: No rash. No petechiae. No purpura. MUSCULOSKELETAL: Gait is not assessed. LABORATORY CBC today: WBC 7.7, hemoglobin 14.9, hematocrit 45.0, platelets 219,000. ANC 4.5. CMP today: Completely normal. TSH today normal at 1.82. Free T4 normal at 1.18. Free T3 is still pending at time of dictation. CEA is also pending. ASSESSMENT AND PLAN Recurrent metastatic colon cancer. Patient was initially diagnosed with stage III colon cancer and received 11 cycles of chemotherapy with FOLFOX and on progression she received FOLFIRI for two cycles full dose and another two cycles of modified-dose FOLFIRI by reduction of the dose by 25% because of the severe reaction. The patient had partial hepatectomy for metastatic lesion in the liver done June 07, 2016, and the pathology was positive for 3.3 mucinous adenocarcinoma. KRAS and NRAS mutations were negative but BRAF mutation was positive. Tumor was microsatellite instability high and for this reason patient started treatment with Keytruda September 20, 2016. Patient is tolerating treatment very well and her PET scans March 24, 2017, and November 14, 2017, all came back negative for disease. Her left external iliac lymph node showed less activity and the SUV dropped from 9.6 to 5.7. Her tumor marker showed fluctuations between 5 and 6. Her most recent CEA was down to 4.3, which was down from 5.2. We have a repeat CEA ordered today, which is still pending. We are quite pleased with this. Plan is to continue with the same treatment with Keytruda every three weeks as she is tolerating this quite well and her performance status remains excellent with the exception of her history of Guillain-[place]wood. She is due for Cycle #36 today. She does have a right adrenal mass, which is stable by recent PET scan. She does have hepatic metastasis from her colon cancer, status post resection, currently on Keytruda with very good response to treatment. 1. Patient will proceed with Keytruda today Cycle #36. 2. She will return to the clinic in three weeks for followup, evaluation for Cycle #37 and repeat labs with CEA, TSH, Free T3, Free T4, magnesium as well as CBC and CMP. 3. Patient is to alert us for any new concerns in the interim. MTDD
[2018-10-30 08:44] VITALS: BP 119/62
[2018-10-30] MEDS: LIDOCAINE/SOD BICARB 8.4% SYR ID PRN (09:16)
[2018-10-30] MEDS: NS(*) 0.9% 100 ML BAG 100 ML IVPB PRN (09:17)
[2018-10-30] MEDS: HEPARIN FLSH (PORT) 500 UN/5ML IVP PRN (09:17)
[2018-10-30 10:03] VITALS: BP 94/69
--- NOTE | 2018-10-30 10:39 | [facility] ONCOLOGY NOTE ---
EVENT DATE: October 30, 2018 DIAGNOSES 1. Metastatic colon cancer. 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 CHIEF COMPLAINT Patient is here today for followup of her metastatic colon cancer, on treatment with Keytruda. ONCOLOGY HISTORY The patient is a 72-year-old female with the following oncology history. 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 Biopsy of the right tube and ovary consistent with spindle stroma. The patient received 11 cycles of adjuvant FOLFOX chemotherapy, received between May 31, 2013, through November 11, 2013, and treatment was stopped because of severe neuropathy. Her colonoscopy in December 2014 was unremarkable. On June 07, 2015, PET/CT scan showed postoperative changes of right hemicolectomy with 2.2 cm hypermetabolic left external iliac lymph node with [id number] 1.8 cm low-density lesion in the dome of the liver which was not previously seen, with suspected cyst. There was an 8 mm mesenteric lymph node near the aortic bifurcation, not significantly changed from prior exam. On June 01, 2015, left iliac lymph node core biopsy was benign lymph node with reactive changes, negative for malignancy. On August 11, 2015, CT scan showed enlarging 2.1 cm, low-density liver lesion with slight lobulated/irregular margins suggestive of cyst, but necrotic metastasis cannot be excluded. An 8 mm right lobe liver lesion was stable, consistent with cyst, stable left external iliac lymph node, and 3.6 cm right adrenal adenoma. On November 03, 2015, CT showed 2 cm, hypodense liver lesion with indistinct margins in the right lobe at the dome, essentially unchanged. On January 28, 2015, PET/CT scan showed previous right hemicolectomy, increase in the size of the lesion near the dome of the right hepatic lobe, now measuring 3.3 x 2.5 cm, with borderline increased metabolic activity, consistent with metastasis. There was hypermetabolic left external iliac and mesenteric lymphadenopathy which was slightly more metabolically reactive than prior with stable 3.5 x 3.1 cm right adrenal gland mass with increased metabolic activity. The patient also during this period of time showed rising of her CEA. CT of chest, abdomen, and pelvis done on May 06, 2016, identified changes of the previous right colectomy. Pelvic lymph nodes are impaired when compared to January. Hypo-enhancing lesion in the dome of the liver is mildly increased. Right adrenal nodule is stable, likely benign. CT-guided biopsy of the liver lesion led to the right hepatectomy done on June 07, 2016. Biopsy of the left lateral section cyst showed mild steatotic liver with denuded cyst, consistent with solitary bile duct cyst. Right hepatectomy came back positive for mucinous adenocarcinoma, 3.3 cm tumor, morphologically consistent with metastatic high-grade colon cancer in the liver. Margins were negative with background steatosis. KRAS and NRAS mutations came back negative, but BRAF mutation came back positive. Microsatellite instability testing came back high, so the patient could get benefit from checkpoint inhibitors. The patient started treatment with Keytruda given that her microsatellite instability was high on September 20, 2016. HISTORY OF PRESENT ILLNESS Patient is here today for followup of her metastatic colon cancer, on treatment with Keytruda. She is doing very well currently. 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 PAST MEDICAL HISTORY 1. Recurrent metastatic colon cancer. 2. Arthritis. 3. Guillain-[place] syndrome. PAST SURGICAL HISTORY 1. Fracture surgery of right leg, two plates and screws. 2. Colonic surgeries. 3. Right hemicolectomy on April 04, 2013. 4. Right hepatectomy June 07, 2016. SOCIAL HISTORY The patient is . Her spouse is disabled. She is a former smoker. She quit on November 29, 2010. Denies any smokeless tobacco. No abuse of alcohol or illicit drugs. FAMILY HISTORY Positive for prostate cancer, colon cancer, Alzheimer's, parkinsonism. Prostate cancer in her father and colon cancer in her father, too. CURRENT MEDICATIONS 1. Oxycodone 5 mg q.4 hours p.r.n. for pain. 2. Lasix 20 mg daily. 3. Zofran 8 mg q.8 hours p.r.n. for nausea and vomiting. 4. Lexapro 20 mg daily. 5. Ativan 1 mg at bedtime for nausea. 6. Protonix 40 mg daily. ALLERGIES PENICILLIN. REVIEW OF SYSTEMS CONSTITUTIONAL: No appetite or weight change. No fever, chills, or sweating. No recent infection. HEENT: Ears: No tinnitus or hearing problem. Nose: No nasal discharge or epistaxis. Throat: No sore throat or mouth ulcers. Eyes: No diplopia or visual changes. RESPIRATORY: No shortness of breath. No cough, expectoration, or hemoptysis. CARDIOVASCULAR: No chest pain, orthopnea, or paroxysmal nocturnal dyspnea (PND). No edema. No palpitations. GASTROINTESTINAL: Patient has alternating diarrhea and constipation. GENITOURINARY: No hematuria or dysuria. MUSCULOSKELETAL: No pain in the muscles, joints, or bones. NEUROLOGICAL: She has tingling and numbness in her hands and feet. HEMATOLOGIC/LYMPHATIC: No bleeding or easy bruising. No weakness or fatigue. No enlarged lymph nodes. SKIN: No skin rash or lumps. PSYCHIATRIC: No anxiety or depression. PHYSICAL EXAMINATION GENERAL: Looks stable. Well developed, well nourished, and in no acute distress. VITAL SIGNS: Blood pressure 119/62, pulse 69 per minute, respirations 18 per minute, temperature 98.6, pulse ox 95% on room air. HEENT: Head: Atraumatic. No sinus tenderness to palpation. Eyes: No icterus or conjunctivitis. Mouth and Throat: No oral thrush or mucositis. NECK: Supple. No cervical or supraclavicular lymphadenopathy. LUNGS: Clear to auscultation and percussion bilaterally. HEART: Regular rate and rhythm. No gallops, murmurs, clicks, or rubs. ABDOMEN: Soft and lax. No tenderness. No hepatosplenomegaly. No masses. EXTREMITIES: No cyanosis, clubbing, or edema. LYMPHATICS: No peripheral lymphadenopathy. NEUROLOGICAL: She is conscious, alert and oriented x3. She is wheelchair bound because of her Guillain-[place] syndrome. PSYCHIATRIC: Mood and affect appear normal. SKIN: No skin rash, bruise, or purpuric eruption. DIAGNOSTIC DATA CBC showed white count 7.9, hemoglobin 14.6, hematocrit 44.2, platelets 144,000. Chem panel totally normal except chloride 109. CEA is 4.4, down from 4.7. TSH is normal at 1.82. ASSESSMENT 1. Recurrent metastatic colon cancer. Patient was initially diagnosed with stage III colon cancer and received 11 cycles of chemotherapy with FOLFOX and on progression she received FOLFIRI for two cycles full-dose and another two cycles of modified-dose FOLFIRI by reducing the dose by 25% because of the severe reaction. The patient had partial hepatectomy for metastatic lesion in the liver done June 07, 2016, and the pathology was positive for 3.3 mucinous adenocarcinoma. KRAS and NRAS mutations were negative but BRAF mutation was positive. Tumor was microsatellite instability high and for this reason patient started treatment with Keytruda September 20, 2016. Patient is tolerating treatment very well and her PET scan done March 24, 2017, and November 14, 2017, came back negative for disease. Her left external iliac lymph node showed less activity and the SUV dropped from 9.6 to 5.7. Her tumor marker also dropped. Currently, it is 4.4, down from 4.7. I am planning to continue treatment with Keytruda and patient really is doing very well and her general condition improved on that treatment. This will be cycle #36. Patient will return back in three weeks with CBC, chem panel, CEA, TSH, free T3, free T4 and magnesium. 2. Right adrenal mass, stable by PET scan. 3. Guillain-[place] syndrome, wheelchair bound. 4. Hepatic metastasis from colon cancer, status post resection, currently on Keytruda with very good response to treatment. PLAN 1. Keytruda. This will be cycle #36. 2. Patient to return in three weeks with CBC, chem panel, free T3, free T4, TSH, CEA and magnesium. 3. Patient to contact us for any new concern or complaints. MTDD
--- NOTE | 2018-11-16 15:04 | NUR ---
SW requested next [facility] shipment for pt's upcoming infusion. Will be delivered on 11/18/18.
[2018-11-20 08:20] VITALS: BP 121/78
[2018-11-20] MEDS: NS(*) 0.9% 100 ML BAG 100 ML IVPB PRN (09:30)
[2018-11-20] MEDS: HEPARIN FLSH (PORT) 500 UN/5ML IVP PRN (09:34)
[2018-11-20] MEDS: LIDOCAINE/SOD BICARB 8.4% SYR ID PRN (09:34)
--- NOTE | 2018-11-20 16:09 | ONCOLOGY FOLLOW UP NOTE ---
EVENT DATE: November 20, 2018 DIAGNOSES 1. Metastatic colon cancer. 2. Guillain-Granton syndrome. CHIEF COMPLAINT Patient is here today for followup of her metastatic colon cancer, on treatment with Keytruda. Patient is here today for consideration of Cycle #38 with Keytruda. 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 Biopsy of the right tube and ovary consistent with spindle stroma. The patient received 11 cycles of adjuvant FOLFOX chemotherapy, received between May 31, 2013, through November 11, 2013, and treatment was stopped because of severe neuropathy. Her colonoscopy in December 2014 was unremarkable. On June 07, 2015, PET CT scan showed postoperative changes of right hemicolectomy with 2.2 cm hypermetabolic left external iliac lymph node with [id number] 1.8 cm low-density lesion in the dome of the liver, which was not previously seen, with suspected cyst. There was an 8 mm mesenteric lymph node near the aortic bifurcation, not significantly changed from prior exam. On June 01, 2015, left iliac lymph node core biopsy was benign lymph node with reactive changes, negative for malignancy. On August 11, 2015, CT scan showed enlarging 2.1 cm low-density liver lesion with slight lobulated/irregular margins suggestive of cyst, but necrotic metastasis could not be excluded. An 8 mm right lobe liver lesion was stable, consistent with cyst, stable left external iliac lymph node, and 3.6 cm right adrenal adenoma. On November 03, 2015, CT showed 2 cm, hypodense liver lesion with indistinct margins in the right lobe at the dome, essentially unchanged. On January 28, 2015, PET CT scan showed previous right hemicolectomy, increase in the size of the lesion near the dome of the right hepatic lobe, now measuring 3.3 x 2.5 cm, with borderline increased metabolic activity, consistent with metastasis. There was hypermetabolic left external iliac and mesenteric lymphadenopathy, which was slightly more metabolically reactive than prior, with stable 3.5 x 3.1 cm right adrenal gland mass with increased metabolic activity. The patient also during this period of time showed rising of her CEA. CT of chest, abdomen, and pelvis done on May 06, 2016, identified changes of the previous right colectomy. Pelvic lymph nodes are impaired when compared to January. Hypo-enhancing lesion in the dome of the liver is mildly increased. Right adrenal nodule is stable, likely benign. CT-guided biopsy of the liver lesion led to the right hepatectomy done on June 07, 2016. Biopsy of the left lateral section cyst showed mild steatotic liver with denuded cyst, consistent with solitary bile duct cyst. Right hepatectomy came back positive for mucinous adenocarcinoma, 3.3 cm tumor, morphologically consistent with metastatic high-grade colon cancer in the liver. Margins were negative with background steatosis. KRAS and NRAS mutations came back negative, but BRAF mutation came back positive. Microsatellite instability testing came back high, so the patient could get benefit from checkpoint inhibitors. The patient started treatment with Keytruda given that her microsatellite instability was high on September 20, 2016. HISTORY OF PRESENT ILLNESS Patient is here today for followup of her metastatic colon cancer, on treatment with Keytruda. She is doing really very well with that treatment. She has neuropathy in her hands, but she has also nearly loss of sensation in the lower extremities because of her Guillain-Granton syndrome. She is on gabapentin, which has helped quite a bit. She does have some alternating diarrhea and constipation following each treatment, but this has actually been chronic for her and is well managed. She took a trip earlier this month to [place] for some gambling and had a great time with her . PAST MEDICAL HISTORY 1. Recurrent metastatic colon cancer. 2. Arthritis. 3. Guillain-Granton syndrome. PAST SURGICAL HISTORY 1. Fracture surgery of right leg, two plates and screws. 2. Colonic surgeries. 3. Right hemicolectomy on April 04, 2013. 4. Right hepatectomy June 07, 2016. SOCIAL HISTORY The patient is . Her spouse is disabled. She is a former smoker. She quit on November 29, 2010. Denies any smokeless tobacco. No abuse of alcohol or illicit drugs. FAMILY HISTORY Positive for prostate cancer, colon cancer, Alzheimer's, parkinsonism. Prostate cancer in her father and colon cancer in her father, too. CURRENT MEDICATIONS 1. Oxycodone 5 mg q.4 hours p.r.n. for pain. 2. Lasix 20 mg daily. 3. Zofran 8 mg q.8 hours p.r.n. for nausea and vomiting. 4. Lexapro 20 mg daily. 5. Ativan 1 mg at bedtime for nausea. 6. Protonix 40 mg daily. ALLERGIES PENICILLIN. REVIEW OF SYSTEMS CONSTITUTIONAL: Patient denies any recent fever, chills, or night sweats. No recent infections. HEENT: No vision changes. No tinnitus. No epistaxis. No mouth sores. RESPIRATORY: No shortness of breath. No cough, sputum production, or hemoptysis. CARDIOVASCULAR: No chest pain. No syncope. No presyncope. No palpitations. GASTROINTESTINAL: No abdominal pain. She has a history of alternating diarrhea and constipation, which is quite stable and at baseline. No nausea or vomiting. Her appetite is excellent and states it is "too good". GENITOURINARY: No hematuria, dysuria, or genitourinary discharge. MUSCULOSKELETAL: No focal area of pain. NEUROLOGICAL: She has numbness and tingling in the hands bilaterally as well as nearly loss of sensation in the lower extremities due to Guillain-Granton. HEMATOLOGIC/LYMPHATIC: No free bleeding or easy bruising. SKIN: No rash. No generalized pruritus. No lumps or bumps. PSYCHIATRIC: She denies any severe anxiety, severe depression, suicidal or homicidal ideation. Remainder of a 12-point review of systems is performed today and is otherwise negative. PHYSICAL EXAMINATION VITAL SIGNS: T 98.8, P 84, R 18, BP 121/78, oxygen saturation 91% room air. GENERAL: This is a pleasant 72-year old woman who appears well developed, well hydrated, and is in no acute distress. She currently rates her pain at "0/10". She rates fatigue as "0/10". HEAD: Atraumatic, normocephalic. EYES: Sclerae anicteric. ENT/MOUTH: No mucositis. No signs of suspicious oral ulcerations. NECK: Supple. No lymphadenopathy. No JVD. LUNGS: Clear breath sounds to auscultation bilaterally. No wheezes, rales, or rhonchi. HEART: Regular rate and rhythm. No ectopy. ABDOMEN: Soft, nontender, nondistended. Bowel sounds positive x4. No organomegaly. EXTREMITIES: No edema. No clubbing or cyanosis. NEURO: Patient is awake, alert, oriented x3. She is wheelchair bound secondary to her Guillain-Granton syndrome. No focal findings. PSYCHIATRIC: Mood and affect are appropriate. DERM: No rash. No petechiae. No purpura. MUSCULOSKELETAL: Gait is not assessed. LABORATORY CBC today: WBC 7.9, ANC 4.8, hemoglobin 15.1, hematocrit 46.0%, platelets 214,000. CMP today: Unremarkable. Serum creatinine normal at 0.90. LFTs normal to include AST normal at 23, ALT normal at 26, alkaline phosphatase normal at 105. Total protein level normal, 7.6, with normal albumin of 4.2. Glucose normal at 94. TSH, CEA, and free T3 are still pending. Free T4 today is normal at 1.56. IMPRESSION AND PLAN This is a pleasant 72-year-old woman with recurrent metastatic colon cancer. Patient was initially diagnosed with stage III colon cancer and received 11 cycles of chemotherapy with FOLFOX, and on progression, she received FOLFIRI for two cycles full dose and another two cycles of modified-dose FOLFIRI by reduction of the dose by 25% because of the severe reaction. The patient had partial hepatectomy for metastatic lesion in the liver done June 07, 2016, and the pathology was positive for 3.3 mucinous adenocarcinoma. KRAS and NRAS mutations were negative, but BRAF mutation was positive. Tumor was microsatellite instability high, and for this reason, patient started treatment with Keytruda September 20, 2016. Patient is tolerating treatment very well, and her PET scans March 24, 2017, and November 14, 2017, all came back negative for disease. Her left external iliac lymph node showed less activity, and the SUV dropped from 9.6 to 5.7. Her tumor marker showed fluctuations between 5 and 6. Most recently, her CEA has been 4.4 over the last six weeks or so. Today's CEA and thyroid labs are still pending. Our plan is for her to continue with treatment. She is doing quite well, and her general condition has improved overall on treatment. She does have a right adrenal mass which is stable by recent PET scan. She has hepatic metastases from her colon cancer, status post resection, but again is doing well and is responding well to treatment. 1. Recurrent metastatic colon cancer: Patient will proceed with Cycle #38 with Keytruda today. 2. We will continue to check labs with each cycle including CBC, CMP, CEA, TSH, free T3, free T4, and magnesium level. 3. Right adrenal mass, stable by PET scan. 4. Guillain-Granton syndrome, wheelchair bound, unchanged. 5. Patient will return to clinic in three weeks for followup and should be receiving Cycle #39 with Keytruda at that time. 6. She is scheduled to see her medical oncologist, Dr. Amezquita, with her next cycle on 12/11/18. MTDD
--- NOTE | 2018-12-04 08:25 | NUR ---
SW requsted next shipment of Keytruda - will be delivered on 12/08
[~2018-12-11 08:27] MED LIST changes: +NS(*) 0.9% 250 ML BAG 250 ML IVPB PRN
[2018-12-11 08:29] VITALS: BP 118/71
[2018-12-11] MEDS: NS(*) 0.9% 100 ML BAG 100 ML IVPB PRN (08:36)
[2018-12-11] MEDS: LIDOCAINE/SOD BICARB 8.4% SYR ID PRN (08:36)
[2018-12-11] MEDS: HEPARIN FLSH (PORT) 500 UN/5ML IVP PRN (08:36)
[2018-12-11 08:49] LABS: PLATELET COUNT, AUTOMATED 218 K/uL (150-450)
[2018-12-11] MEDS ORDERED: PEMBROLIZUMAB 100 MG/4 ML SDV 200 MG in NS(*) 0.9% 50 ML BAG 50 ML IV ONE (09:25)
--- NOTE | 2018-12-11 09:55 | [facility] ONCOLOGY NOTE ---
EVENT DATE: December 11, 2018 DIAGNOSES 1. Metastatic colon cancer. 2. Guillain-Phoenix syndrome. CHIEF COMPLAINT Patient is here today for followup of her metastatic colon cancer, on treatment with Keytruda. ONCOLOGY HISTORY The patient is a 72-year-old female with the following oncology history. 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 Biopsy of the right tube and ovary consistent with spindle stroma. The patient received 11 cycles of adjuvant FOLFOX chemotherapy, received between May 31, 2013, through November 11, 2013, and treatment was stopped because of severe neuropathy. Her colonoscopy in December 2014 was unremarkable. On June 07, 2015, PET/CT scan showed postoperative changes of right hemicolectomy with 2.2 cm hypermetabolic left external iliac lymph node with [id number] 1.8 cm low-density lesion in the dome of the liver which was not previously seen, with suspected cyst. There was an 8 mm mesenteric lymph node near the aortic bifurcation, not significantly changed from prior exam. On June 01, 2015, left iliac lymph node core biopsy was benign lymph node with reactive changes, negative for malignancy. On August 11, 2015, CT scan showed enlarging 2.1 cm, low-density liver lesion with slight lobulated/irregular margins suggestive of cyst, but necrotic metastasis cannot be excluded. An 8 mm right lobe liver lesion was stable, consistent with cyst, stable left external iliac lymph node, and 3.6 cm right adrenal adenoma. On November 03, 2015, CT showed 2 cm, hypodense liver lesion with indistinct margins in the right lobe at the dome, essentially unchanged. On January 28, 2015, PET/CT scan showed previous right hemicolectomy, increase in the size of the lesion near the dome of the right hepatic lobe, now measuring 3.3 x 2.5 cm, with borderline increased metabolic activity, consistent with metastasis. There was hypermetabolic left external iliac and mesenteric lymphadenopathy which was slightly more metabolically reactive than prior with stable 3.5 x 3.1 cm right adrenal gland mass with increased metabolic activity. The patient also during this period of time showed rising of her CEA. CT of chest, abdomen, and pelvis done on May 06, 2016, identified changes of the previous right colectomy. Pelvic lymph nodes are impaired when compared to January. Hypo-enhancing lesion in the dome of the liver is mildly increased. Right adrenal nodule is stable, likely benign. CT-guided biopsy of the liver lesion led to the right hepatectomy done on June 07, 2016. Biopsy of the left lateral section cyst showed mild steatotic liver with denuded cyst, consistent with solitary bile duct cyst. Right hepatectomy came back positive for mucinous adenocarcinoma, 3.3 cm tumor, morphologically consistent with metastatic high-grade colon cancer in the liver. Margins were negative with background steatosis. KRAS and NRAS mutations came back negative, but BRAF mutation came back positive. Microsatellite instability testing came back high, so the patient could get benefit from checkpoint inhibitors. The patient started treatment with Keytruda given that her microsatellite instability was high on September 20, 2016. HISTORY OF PRESENT ILLNESS Patient is here today for followup of her metastatic colon cancer, on treatment with Keytruda. Patient is doing very well with her current treatment with Keytruda. 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 She is also complaining of alternating diarrhea and constipation but generally speaking she is feeling very well in herself. PAST MEDICAL HISTORY 1. Recurrent metastatic colon cancer. 2. Arthritis. 3. Guillain-Phoenix syndrome. PAST SURGICAL HISTORY 1. Fracture surgery of right leg, two plates and screws. 2. Colonic surgeries. 3. Right hemicolectomy on April 04, 2013. 4. Right hepatectomy June 07, 2016. SOCIAL HISTORY The patient is . Her spouse is disabled. She is a former smoker. She quit on November 29, 2010. Denies any smokeless tobacco. No abuse of alcohol or illicit drugs. FAMILY HISTORY Positive for prostate cancer, colon cancer, Alzheimer's, parkinsonism. Prostate cancer in her father and colon cancer in her father, too. CURRENT MEDICATIONS 1. Oxycodone 5 mg q.4 hours p.r.n. for pain. 2. Lasix 20 mg daily. 3. Zofran 8 mg q.8 hours p.r.n. for nausea and vomiting. 4. Lexapro 20 mg daily. 5. Ativan 1 mg at bedtime for nausea. 6. Protonix 40 mg daily. ALLERGIES PENICILLIN. REVIEW OF SYSTEMS CONSTITUTIONAL: No appetite or weight change. No fever, chills, or sweating. No recent infection. HEENT: Ears: No tinnitus or hearing problem. Nose: No nasal discharge or epistaxis. Throat: No sore throat or mouth ulcers. Eyes: No diplopia or visual changes. RESPIRATORY: No shortness of breath. No cough, expectoration, or hemoptysis. CARDIOVASCULAR: No chest pain, orthopnea, or paroxysmal nocturnal dyspnea (PND). No edema. No palpitations. GASTROINTESTINAL: She has alternating diarrhea and constipation. GENITOURINARY: No hematuria or dysuria. MUSCULOSKELETAL: No pain in the muscles, joints, or bones. NEUROLOGICAL: She has tingling and numbness in her hands and feet. HEMATOLOGIC/LYMPHATIC: No bleeding or easy bruising. No weakness or fatigue. No enlarged lymph nodes. SKIN: No skin rash or lumps. PSYCHIATRIC: No anxiety or depression. PHYSICAL EXAMINATION GENERAL: Looks stable. Well developed, well nourished, and in no acute distress. VITAL SIGNS: Blood pressure 118/71, pulse 82 per minute, respirations 16 per minute, temperature 97.4. HEENT: Head: Atraumatic. No sinus tenderness to palpation. Eyes: No icterus or conjunctivitis. Mouth and Throat: No oral thrush or mucositis. NECK: Supple. No cervical or supraclavicular lymphadenopathy. LUNGS: Clear to auscultation and percussion bilaterally. HEART: Regular rate and rhythm. No gallops, murmurs, clicks, or rubs. ABDOMEN: Soft and lax. No tenderness. No hepatosplenomegaly. No masses. EXTREMITIES: No cyanosis, clubbing, or edema. LYMPHATICS: No peripheral lymphadenopathy. NEUROLOGICAL: She is conscious, alert and oriented x3. She is wheelchair bound because of her Guillain-Phoenix syndrome. PSYCHIATRIC: Mood and affect appear normal. SKIN: No skin rash, bruise, or purpuric eruption. DIAGNOSTIC DATA CBC showed white count 7,000, hemoglobin 15.6, hematocrit 47, platelets 218,000. Chem panel totally normal. TSH is normal at 1.56. CEA dropped from 4.4 to 4.2 but her level for today is pending. ASSESSMENT 1. Recurrent metastatic colon cancer. Patient was initially diagnosed with stage III colon cancer and received 11 cycles of chemotherapy with FOLFOX and on progression she received FOLFIRI for two cycles full-dose and another two cycles of modified-dose FOLFIRI with 25% dose reduction because of severe reaction. She had partial hepatectomy for metastatic lesion in the liver done June 07, 2016, and the pathology was positive for 3.3 mucinous adenocarcinoma. KRAS and NRAS mutations were negative but BRAF mutation was positive. Tumor was microsatellite instability high and for this reason patient started treatment with Keytruda September 20, 2016. Patient is tolerating treatment very well. Her PET scan March 24, 2017 and November 14, 2017 were negative for metastatic disease. Her left external iliac lymph node showed less activity and the SUV dropped from 9.6 to 5.7. Her tumor marker also dropped. Her current tumor marker is 4.2, which is down from 4.4, which was down from 4.7 and her marker for today is pending. I am planning to proceed with her treatment with Keytruda and I will monitor her count with each visit. Her thyroid function tests are normal. I am planning to proceed with her cycle #38 this time and will see her in three weeks with CBC, chem panel, TSH, free T3, free T4 and magnesium level. 2. Right adrenal mass, stable by PET scan. 3. Guillain-Phoenix syndrome, wheelchair bound. 4. Hepatic metastasis from colon cancer, status post resection, currently on Keytruda with very good response to treatment. PLAN 1. Keytruda. This will be cycle #38. 2. Patient to return in three weeks with CBC, chem panel, free T3, free T4, TSH, CEA and magnesium. 3. Patient to contact us for any new concern or complaints. MTDD
[2018-12-11 11:30] VITALS: BP 116/72
--- NOTE | 2018-12-25 09:10 | NUR ---
SW requested next keytruda infusion. Will be delivered to [facility] on 12/29.
== END 2019-01-06 ==
LOC: ONC 08:27
PROVIDERS: ATTEND Internal Medicine Hematology
DX: Z51.11 Encounter for antineoplastic chemotherapy (principal); C18.9 Malignant neoplasm of colon, unspecified; C78.7 Secondary malignant neoplasm of liver and intrahepatic bile duct; G61.0 Guillain-Barre syndrome; Z87.891 Personal history of nicotine dependence; Z79.899 Other long term (current) drug therapy
CPT/HCPCS: 82378; 83735; 84439; 84443; 84480; 84481; 85025; 85027; 96365; 96413; J1642; J7050; J9271; 82040; 82247; 82310; 82374; 82435; 82565; 82947; 84075; 84132; 84155; 84295; 84450; 84460; 84520